=== PATIENT | male | born 1960 | race American Indian/Alaskan Native ===

== ENCOUNTER 2019-01-12 06:29 | Inpatient (IN) | payer MEDICARE ==
--- NOTE | 2019-01-12 07:06 | XRay Report ---
PROCEDURE: XR CHEST ROUTINE 2V TECHNIQUE: PA and lateral views of the chest were submitted. HISTORY: SOB, DRY COUGH COMPARISONS: None FINDINGS: The heart is mildly enlarged. The lungs are diffusely congested. There is bilateral interstitial debora a with thickening of the fissures. Pleural effusion is not seen. The skeletal structures do not show any acute changes. IMPRESSION: Congestive heart failure pattern.. This document is electronically signed by Mian Pichardo MD., January 12 2019 07:03:22 AM ET
[2019-01-12 07:09] LABS: Basophils # (Auto) 0.1 K/mm3 (0.0-0.1); Basophils % (Auto) 1.2 % (0.0-1.8); Eosinophils # (Auto) 0.1 K/mm3 (0.0-0.4); Hematocrit 43.3 % (35.5-45.6); Lymphocytes # (Auto) 2.3 K/mm3 (1.2-5.4); Lymphocytes % (Auto) 33.6 % (13.4-35.0); Mean Corpuscular HGB Conc 32 % (32-34); Mean Corpuscular Volume 88 fl (84-94); Monocytes # (Auto) 0.7 K/mm3 (0.0-0.8); Monocytes % (Auto) 9.5 % (0.0-7.3); Platelet Count 213 K/mm3 (140-440); Red Blood Count 4.93 M/mm3 (3.65-5.03); Red Cell Distribution Width 15.3 % (13.2-15.2)
[2019-01-12 07:33] LABS: BUN/Creatinine Ratio 12; Blood Urea Nitrogen 14 mg/dL (9-20); Calcium 8.9 mg/dL (8.4-10.2); Hemolysis Index 48
[2019-01-12 09:55] LABS: INR 1.17 (0.87-1.13); Partial Thromboplastin Time 28.4 Sec. (24.2-36.6)
--- NOTE | 2019-01-12 09:57 | Cat Scan Report ---
CTA CHEST: HISTORY: Shortness of breath, chest pain. COMPARISON: Chest x-ray performed the same day. TECHNIQUE: Helical CT in 1.25mm intervals following IV contrast. Pulmonary embolus protocol. Sagittal and coronal reformatted images. Rotational MIP images. FINDINGS: Contrast bolus is satisfactory. No pulmonary embolus is identified. Thyroid gland: Normal. Tracheobronchial tree: Normal. Esophagus: Normal. Heart: Mild cardiomegaly. Pericardium: Normal. Mediastinum: Normal. Lung Travis: Mild congestive changes are identified in both lungs. No underlying parenchymal lung disease, infiltrate or mass. Pleural Spaces: Trace to small bilateral layering pleural effusions. Musculoskeletal: Intact. Mild thoracic spondylosis is noted. IMPRESSION: No evidence for pulmonary embolus. Mild CHF.
[2019-01-12] MEDS ORDERED: LASIX IV ONE (10:28)
--- NOTE | 2019-01-12 10:28 | Emergency Department Report ---
ED General Adult HPI - General Chief complaint: Dyspnea/Respdistress Stated complaint: FATIGUE IRENE Time Seen by Provider: 01/12/19 08:29 Source: patient Mode of arrival: Ambulatory Limitations: No Limitations - History of Present Illness Initial comments: The patient presents to emergency department with a chief complaint of shortness of breath and chest pain for greater than 3 weeks. Patient states symptoms are worse with exertion. The patient is deaf but is able to communicate via writing questions and him responding by voice. Patient denies any leg pain, abdominal pain, or headache. -: Gradual Location: chest Severity scale (0 -10): 7 Quality: aching Consistency: constant Improves with: rest Worsens with: movement Associated Symptoms: denies other symptoms Treatments Prior to Arrival: none - Related Data Home Medications Medication Instructions Recorded Confirmed Last Taken No Known Home Medications [No 01/12/19 01/12/19 Unknown Reported Home Medications] Allergies Allergy/AdvReac Type Severity Reaction Status Date / Time No Known Allergies Allergy Unverified 01/12/19 06:41 ED Review of Systems ROS: Stated complaint: FATIGUE IRENE Other details as noted in HPI Comment: All other systems reviewed and negative Constitutional: denies: chills, fever Eyes: denies: eye pain, eye discharge, vision change ENT: denies: ear pain, throat pain Respiratory: shortness of breath, SOB with exertion. denies: cough, wheezing Cardiovascular: chest pain. denies: palpitations Endocrine: no symptoms reported Gastrointestinal: denies: abdominal pain, nausea, diarrhea Genitourinary: denies: urgency, dysuria Musculoskeletal: denies: back pain, joint swelling, arthralgia Skin: denies: rash, lesions Neurological: denies: headache, weakness, paresthesias Psychiatric: denies: anxiety, depression Hematological/Lymphatic: denies: easy bleeding, easy bruising ED Past Medical Hx - Past Medical History Previous Medical History?: Yes Hx Hypertension: Yes (out of meds x2 yrs) - Surgical History Past Surgical History?: No - Social History Smoking Status: Former Smoker Substance Use Type: None - Medications Home Medications: Home Medications Medication Instructions Recorded Confirmed Last Taken Type No Known Home Medications [No 01/12/19 01/12/19 Unknown History Reported Home Medications] ED Physical Exam - General Limitations: No Limitations General appearance: alert, in no apparent distress - Head Head exam: Present: atraumatic, normocephalic - Eye Eye exam: Present: normal appearance, PERRL, EOMI - ENT ENT exam: Present: mucous membranes moist - Neck Neck exam: Present: normal inspection - Respiratory Respiratory exam: Present: normal lung sounds bilaterally, rales. Absent: respiratory distress, wheezes, rhonchi - Cardiovascular Cardiovascular Exam: Present: normal rhythm, tachycardia. Absent: systolic murmur, diastolic murmur, rubs, gallop - GI/Abdominal GI/Abdominal exam: Present: soft, normal bowel sounds. Absent: distended, tenderness - Rectal Rectal exam: Present: deferred - Extremities Exam Extremities exam: Present: normal inspection - Back Exam Back exam: Present: normal inspection - Neurological Exam Neurological exam: Present: alert, oriented X3, CN II-XII intact. Absent: motor sensory deficit - Psychiatric Psychiatric exam: Present: normal affect, normal mood - Skin Skin exam: Present: warm, dry, intact, normal color. Absent: rash ED Course Vital Signs 01/12/19 01/12/19 01/12/19 06:36 08:14 09:00 Temperature 98.5 F Pulse Rate 95 H 127 H 124 H Respiratory 22 22 21 Rate Blood Pressure 182/128 Blood Pressure 185/126 [Right] O2 Sat by Pulse 100 97 Oximetry 01/12/19 01/12/19 01/12/19 09:49 10:01 10:11 Temperature Pulse Rate 129 H 125 H 120 H Respiratory 28 H 24 25 H Rate Blood Pressure 163/129 178/130 172/129 Blood Pressure [Right] O2 Sat by Pulse 98 Oximetry 01/12/19 01/12/19 01/12/19 10:21 10:30 10:40 Temperature Pulse Rate 120 H 122 H 121 H Respiratory 25 H 29 H 27 H Rate Blood Pressure 170/135 172/134 172/134 Blood Pressure [Right] O2 Sat by Pulse 97 98 100 Oximetry 01/12/19 01/12/19 01/12/19 10:51 11:00 11:11 Temperature Pulse Rate 121 H 120 H 125 H Respiratory 27 H 24 26 H Rate Blood Pressure 168/131 164/119 168/131 Blood Pressure [Right] O2 Sat by Pulse 97 98 100 Oximetry ED Medical Decision Making - Lab Data Result diagrams: 01/13/19 05:11 01/13/19 05:11 Lab Results 01/12/19 01/12/19 01/12/19 Range/Units 06:56 06:56 09:07 WBC 6.9 (4.5-11.0) K/mm3 RBC 4.93 (3.65-5.03) M/mm3 Hgb 14.0 (11.8-15.2) gm/dl Hct 43.3 (35.5-45.6) % MCV 88 (84-94) fl MCH 28 (28-32) pg MCHC 32 (32-34) % RDW 15.3 H (13.2-15.2) % Plt Count 213 (140-440) K/mm3 Lymph % (Auto) 33.6 (13.4-35.0) % Riley % (Auto) 9.5 H (0.0-7.3) % Eos % (Auto) 2.0 (0.0-4.3) % Baso % (Auto) 1.2 (0.0-1.8) % Lymph # 2.3 (1.2-5.4) K/mm3 Riley # 0.7 (0.0-0.8) K/mm3 Eos # 0.1 (0.0-0.4) K/mm3 Baso # 0.1 (0.0-0.1) K/mm3 Seg Neutrophils % 53.7 (40.0-70.0) % Seg Neutrophils # 3.7 (1.8-7.7) K/mm3 PT 15.7 H (12.2-14.9) Sec. INR 1.17 H (0.87-1.13) APTT 28.4 (24.2-36.6) Sec. Sodium 137 (137-145) mmol/L Potassium 4.2 (3.6-5.0) mmol/L Chloride 103.7 (98-107) mmol/L Carbon Dioxide 20 L (22-30) mmol/L Anion Gap 18 mmol/L BUN 14 (9-20) mg/dL Creatinine 1.2 (0.8-1.5) mg/dL Estimated GFR > 60 ml/min BUN/Creatinine Ratio 12 % Glucose 164 H (75-100) mg/dL Calcium 8.9 (8.4-10.2) mg/dL Troponin T (0.00-0.029) ng/mL NT-Pro-B Natriuret Pep (0-900) pg/mL 01/12/19 Range/Units 09:07 WBC (4.5-11.0) K/mm3 RBC (3.65-5.03) M/mm3 Hgb (11.8-15.2) gm/dl Hct (35.5-45.6) % MCV (84-94) fl MCH (28-32) pg MCHC (32-34) % RDW (13.2-15.2) % Plt Count (140-440) K/mm3 Lymph % (Auto) (13.4-35.0) % Riley % (Auto) (0.0-7.3) % Eos % (Auto) (0.0-4.3) % Baso % (Auto) (0.0-1.8) % Lymph # (1.2-5.4) K/mm3 Riley # (0.0-0.8) K/mm3 Eos # (0.0-0.4) K/mm3 Baso # (0.0-0.1) K/mm3 Seg Neutrophils % (40.0-70.0) % Seg Neutrophils # (1.8-7.7) K/mm3 PT (12.2-14.9) Sec. INR (0.87-1.13) APTT (24.2-36.6) Sec. Sodium (137-145) mmol/L Potassium (3.6-5.0) mmol/L Chloride (98-107) mmol/L Carbon Dioxide (22-30) mmol/L Anion Gap mmol/L BUN (9-20) mg/dL Creatinine (0.8-1.5) mg/dL Estimated GFR ml/min BUN/Creatinine Ratio % Glucose (75-100) mg/dL Calcium (8.4-10.2) mg/dL Troponin T < 0.010 (0.00-0.029) ng/mL NT-Pro-B Natriuret Pep 3678 H (0-900) pg/mL - EKG Data -: EKG Interpreted by Me EKG shows normal: sinus rhythm Rate: tachycardia - Radiology Data Radiology results: report reviewed - Medical Decision Making Communication was done with pin and paper The patient does have ability to answer questions at the reading the questions Attempt was made to use to signing application via the high pad but can show was not granted after multiple attempts Results discussed with patient IV Lasix given Critical Care Time: Yes Critical care time in (mins) excluding proc time.: 35 Critical care attestation.: If time is entered above; I have spent that time in minutes in the direct care of this critically ill patient, excluding procedure time. ED Disposition Clinical Impression: CHF (congestive heart failure) Disposition: [id number] OP ADMIT IP TO THIS HOSP Is pt being admited?: Yes Does the pt Need Aspirin: Yes Condition: Fair
[2019-01-12] MEDS ORDERED: BABY ASPIRIN PO ONE (10:42)
[2019-01-12] MEDS ORDERED: NITROSTAT SL PRN ×2 (11:40)
[2019-01-12] MEDS ORDERED: ZOFRAN IV PRN (11:40)
[2019-01-12] MEDS ORDERED: PROVENTIL IH PRN (11:40)
[2019-01-12] MEDS ORDERED: SODIUM CHLORIDE FLUSH SYRINGE 10 ML IV PRN ×2 (11:40)
[2019-01-12] MEDS ORDERED: MORPHINE IV PRN (11:40)
--- NOTE | 2019-01-12 11:51 | History and Physical Report ---
History of Present Illness Date of examination: 01/12/19 Date of admission: 01/12/19 10:38 Chief complaint: Shortness of breath and chest pain History of present illness: Patient is a 58-year-old male with past medical history of hypertension also deafness which started in his teenage years and noncompliance with medication quit taking his medication about 2 years ago presents to the ER with complaints of shortness of breath and chest pain worse in the past 3 weeks. The patient reports that he does have exertional dyspnea and also worse on lying down. In the last week he began to have tightness in his chest to him to come to the ED. He denies any nausea vomiting diarrhea or blood per rectum or melanotic stools. He denies any prior history of DE stroke or CABG. He was an avid smoker but quit 2 years ago. He endorses intermittent alcohol use but denies any binge drinking. The chest pain he describes as constant and unchanged. He rates it a 7/10 in intensity. Past History Past Medical History: hypertension, other (deaf, history of nosebleeds as a child) Past Surgical History: No surgical history Social history: no significant social history, smoking (quit 2 years ago), full code Family history: no significant family history Medications and Allergies Allergies Allergy/AdvReac Type Severity Reaction Status Date / Time No Known Allergies Allergy Unverified 01/12/19 06:41 Home Medications Medication Instructions Recorded Confirmed Last Taken Type No Known Home Medications [No 01/12/19 01/12/19 Unknown History Reported Home Medications] Active Meds: Active Medications Acetaminophen (Tylenol) 650 mg PO Q4H PRN PRN Reason: Pain MILD(1-3)/Fever >100.5/ISAAC Albuterol (Proventil) 2.5 mg IH Q4HRT PRN PRN Reason: Shortness Of Breath Albuterol/Ipratropium (Duoneb *Not For Prn Use*) 1 ampul IH Q6HRT [facility] Aspirin (Baby Aspirin) 81 mg PO QDAY JENS Atorvastatin Calcium (Lipitor) 40 mg PO QHS JENS Carvedilol (Coreg) 12.5 mg PO BID JENS Furosemide (Lasix) 40 mg IV BID@0600,1800 [facility] Isosorbide Dinitrate (Isordil Titradose) 20 mg PO Q8HR JENS Morphine Sulfate (Morphine) 2 mg IV Q5MIN PRN PRN Reason: Chest Pain unrelieved by NTG Nitroglycerin (Nitrostat) 0.4 mg SL .Q5MIN PRN PRN Reason: Chest Pain Nitroglycerin (Nitrostat) 0.4 mg SL Q5M PRN PRN Reason: Chest Pain Ondansetron HCl (Zofran) 4 mg IV Q8H PRN PRN Reason: Nausea And Vomiting Pantoprazole Sodium (Protonix) 40 mg PO QDAY JENS Sodium Chloride (Sodium Chloride Flush Syringe 10 Ml) 10 ml IV PRN PRN PRN Reason: LINE FLUSH Sodium Chloride (Sodium Chloride Flush Syringe 10 Ml) 10 ml IV BID JENS Sodium Chloride (Sodium Chloride Flush Syringe 10 Ml) 10 ml IV PRN PRN PRN Reason: LINE FLUSH Review of Systems All systems: negative Constitutional: no weight loss, no weight gain, no fever, no chills, no anorexia, no malaise, no lethargy, no chronic headaches Ears, nose, mouth and throat: decreased hearing, no ear pain, no tinnitis Cardiovascular: chest pain, orthopnea, edema, shortness of breath, dyspnea on e xertion, leg edema, decreased exercise tolerance, no palpitations, no rapid/irregular heart beat, no syncope, no lightheadedness, no paroxysmal nocturnal dyspnea, no claudication, no phlebitis, no high blood pressure Respiratory: shortness of breath, dyspnea on exertion, no cough, no cough with sputum, no excessive sputum, no hemoptysis, no congestion, no wheezing, no pleu risy, no pain, no pain on inspiration, no sleep apnea, no respiratory infections, no home oxygen Gastrointestinal: no abdominal pain, no vomiting, no constipation, no hemateme sis, no melena, no early satiety, no indigestion, no jaundice, no lactose intolerance Musculoskeletal: no neck pain, no low back pain, no leg numbness/tingling, no morning stiffness, no myalgias, no fractures, no prior amputations Integumentary: no rash, no sores, no wounds, no blisters, no growths, no bullae, no acne, no dryness, no hirsutism Neurological: no transient paralysis, no paralysis, no numbness, no syncope, no convulsions, no change in speech, no memory loss, no sensory deficit, no double vision, no burning pain Psychiatric: no memory loss, no change in sleep habits, no hypersomnia, no disorientation, no depression, no irritability Endocrine: no heat intolerance, no polydipsia, no nocturia, no weight change, no deepening of the voice, no high blood sugars, no recent glucocorticoid use Allergic/Immunologic: no urticaria Exam - Physical Exam Narrative exam: VITAL SIGNS: Reviewed. GENERAL: The patient appeared well nourished and normally developed, Vital signs as documented. HEAD: No signs of head trauma. EYES: Pupils are equal. Extraocular motions intact. EARS: Deaf MOUTH: Oropharynx is normal. NECK: No adenopathy, no JVD. CHEST: Chest with diminished breath sounds bilaterally. No wheezes, rales, or rhonchi. CARDIAC: Regular rate and rhythm. S1 and S2, without murmurs, gallops, or rubs. VASCULAR: +2 Edema. Peripheral pulses normal and equal in all extremities. ABDOMEN: Soft, non tender and non distended. No rebound or guarding, and no masses palpated. Bowel Sounds normal. MUSCULOSKELETAL: Good range of motion of all major joints. Extremities without clubbing, cyanosis or edema. NEUROLOGIC EXAM: Alert and oriented x 3 No focal sensory or strength deficits. Speech normal. Follows commands. PSYCHIATRIC: Mood normal. SKIN: No rash or lesions. - Constitutional Vitals: Temp Pulse Resp BP Pulse Ox 98.5 F 129 H 26 H 163/129 98 01/12/19 06:36 01/12/19 09:49 01/12/19 10:01 01/12/19 09:49 01/12/19 10:01 Results - Labs CBC & Chem 7: 01/12/19 06:56 01/12/19 06:56 Labs: Laboratory Last Values WBC 6.9 K/mm3 (4.5-11.0) 01/12/19 06:56 RBC 4.93 M/mm3 (3.65-5.03) 01/12/19 06:56 Hgb 14.0 gm/dl (11.8-15.2) 01/12/19 06:56 Hct 43.3 % (35.5-45.6) 01/12/19 06:56 MCV 88 fl (84-94) 01/12/19 06:56 MCH 28 pg (28-32) 01/12/19 06:56 MCHC 32 % (32-34) 01/12/19 06:56 RDW 15.3 % (13.2-15.2) H 01/12/19 06:56 Plt Count 213 K/mm3 (140-440) 01/12/19 06:56 Lymph % (Auto) 33.6 % (13.4-35.0) 01/12/19 06:56 [place] % (Auto) 9.5 % (0.0-7.3) H 01/12/19 06:56 Eos % (Auto) 2.0 % (0.0-4.3) 01/12/19 06:56 Baso % (Auto) 1.2 % (0.0-1.8) 01/12/19 06:56 Lymph # 2.3 K/mm3 (1.2-5.4) 01/12/19 06:56 [place] # 0.7 K/mm3 (0.0-0.8) 01/12/19 06:56 Eos # 0.1 K/mm3 (0.0-0.4) 01/12/19 06:56 Baso # 0.1 K/mm3 (0.0-0.1) 01/12/19 06:56 Seg Neutrophils % 53.7 % (40.0-70.0) 01/12/19 06:56 Seg Neutrophils # 3.7 K/mm3 (1.8-7.7) 01/12/19 06:56 PT 15.7 Sec. (12.2-14.9) H 01/12/19 09:07 INR 1.17 (0.87-1.13) H 01/12/19 09:07 APTT 28.4 Sec. (24.2-36.6) 01/12/19 09:07 Sodium 137 mmol/L (137-145) 01/12/19 06:56 Potassium 4.2 mmol/L (3.6-5.0) 01/12/19 06:56 Chloride 103.7 mmol/L (98-107) 01/12/19 06:56 Carbon Dioxide 20 mmol/L (22-30) L 01/12/19 06:56 Anion Gap 18 mmol/L 01/12/19 06:56 BUN 14 mg/dL (9-20) 01/12/19 06:56 Creatinine 1.2 mg/dL (0.8-1.5) 01/12/19 06:56 Estimated GFR > 60 ml/min 01/12/19 06:56 BUN/Creatinine Ratio 12 % 01/12/19 06:56 Glucose 164 mg/dL (75-100) H 01/12/19 06:56 Calcium 8.9 mg/dL (8.4-10.2) 01/12/19 06:56 Troponin T < 0.010 ng/mL (0.00-0.029) 01/12/19 09:07 NT-Pro-B Natriuret Pep 3678 pg/mL (0-900) H 01/12/19 09:07 Assessment and Plan Assessment and plan: Patient is a 58-year-old male with past medical history of hypertension also deafness which started in his teenage years and noncompliance with medication quit taking his medication about 2 years ago presents to the ER with complaints of shortness of breath and chest pain worse in the past 3 weeks. The patient reports that he does have exertional dyspnea and also worse on lying down. In the last week he began to have tightness in his chest to him to come to the ED. He denies any nausea vomiting diarrhea or blood per rectum or melanotic stools. He denies any prior history of DE stroke or CABG. He was an avid smoker but quit 2 years ago. He endorses intermittent alcohol use but denies any binge drinking. The chest pain he describes as constant and unchanged. He rates it a 7/10 in in tensity. CXR: Congestive Heart failure CTA Chest: No PE Acute Congestive Heart failure- Presume Systolic Hypertensive Urgency Exertional Dyspnea. Atypical chest pain Deaf Plan Admit to Telemetry unit Start on CHF protocol problem Lasix 40 IV BID, Beta Alexander, ACEI LOW SALT DAILY WEIGHT CARDIAC ENZYMES [place] Heart failure education Operations Intelligence Superintendent was available for assistance Cardiology consult and discussed with the cardiology team DVT/GI prophy Advance Directives: Yes Plan of care discussed with patient/family: Yes
[2019-01-12] MEDS ORDERED: ASPIRIN ONE (11:56)
[2019-01-12] MEDS ORDERED: LASIX ONE (11:56)
[2019-01-12] MEDS ORDERED: ZESTRIL PO SCH (12:00)
[2019-01-12] MEDS ORDERED: ISORDIL TITRADOSE PO SCH (14:00)
[2019-01-12] MEDS: HEPARIN SUB-Q SCH ×2 (14:18→22:42)
--- NOTE | 2019-01-12 14:40 | Consultation ---
History of Present Illness Consult date: 01/12/19 Consult reason: congestive heart failure History of present illness: Patient presenting with worsening shortness of breath, tachycardia and elevated blood pressure. Patient is hearing impaired. He reports running out of BP meds for 2 years now. He is not aware of any cardiac conditions besides his hypertension. CXR is showing pulmonary edema. Past History Past Medical History: hypertension Past Surgical History: No surgical history Social history: no significant social history Family history: no significant family history Medications and Allergies Allergies Allergy/AdvReac Type Severity Reaction Status Date / Time No Known Allergies Allergy Unverified 01/12/19 06:41 Home Medications Medication Instructions Recorded Confirmed Last Taken Type No Known Home Medications [No 01/12/19 01/12/19 Unknown History Reported Home Medications] Active Meds: Active Medications Acetaminophen (Tylenol) 650 mg PO Q4H PRN PRN Reason: Pain MILD(1-3)/Fever >100.5/ISAAC Albuterol (Proventil) 2.5 mg IH Q4HRT PRN PRN Reason: Shortness Of Breath Albuterol/Ipratropium (Duoneb *Not For Prn Use*) 1 ampul IH Q6HRT [facility] Aspirin (Baby Aspirin) 81 mg PO QDAY [facility] Atorvastatin Calcium (Lipitor) 40 mg PO QHS [facility] Carvedilol (Coreg) 12.5 mg PO BID [facility] Furosemide (Lasix) 40 mg IV BID@0600,1800 [facility] Heparin Sodium (Porcine) (Heparin) 5,000 unit SUB-Q Q8HR [facility] Isosorbide Dinitrate (Isordil Titradose) 20 mg PO Q8HR [facility] Lisinopril (Zestril) 20 mg PO QDAY [facility] Morphine Sulfate (Morphine) 2 mg IV Q5MIN PRN PRN Reason: Chest Pain unrelieved by NTG Nitroglycerin (Nitrostat) 0.4 mg SL .Q5MIN PRN PRN Reason: Chest Pain Ondansetron HCl (Zofran) 4 mg IV Q8H PRN PRN Reason: Nausea And Vomiting Pantoprazole Sodium (Protonix) 40 mg PO QDAY [facility] Sodium Chloride (Sodium Chloride Flush Syringe 10 Ml) 10 ml IV PRN PRN PRN Reason: LINE FLUSH Sodium Chloride (Sodium Chloride Flush Syringe 10 Ml) 10 ml IV BID [facility] Sodium Chloride (Sodium Chloride Flush Syringe 10 Ml) 10 ml IV PRN PRN PRN Reason: LINE FLUSH Review of Systems All systems: negative Physical Examination Vital Signs Temp Pulse Resp BP Pulse Ox 98.5 F 95 H 22 182/128 100 01/12/19 06:36 01/12/19 06:36 01/12/19 06:36 01/12/19 06:36 01/12/19 06:36 General appearance: no acute distress HEENT: Positive: PERRL Neck: Positive: JVD/HJR Cardiac: Positive: Tachycardia Lungs: Positive: Rales Neuro: Positive: Other (Hearing impaired) Abdomen: Positive: Soft Extremities: Present: +1 Edema Results 01/12/19 06:56 01/12/19 06:56 Coagulation 01/12/19 Range/Units 09:07 PT 15.7 H (12.2-14.9) Sec. INR 1.17 H (0.87-1.13) APTT 28.4 (24.2-36.6) Sec. CBC 01/12/19 Range/Units 06:56 WBC 6.9 (4.5-11.0) K/mm3 RBC 4.93 (3.65-5.03) M/mm3 Hgb 14.0 (11.8-15.2) gm/dl Hct 43.3 (35.5-45.6) % Plt Count 213 (140-440) K/mm3 Lymph # 2.3 (1.2-5.4) K/mm3 [place] # 0.7 (0.0-0.8) K/mm3 Eos # 0.1 (0.0-0.4) K/mm3 Baso # 0.1 (0.0-0.1) K/mm3 Comprehensive Metabolic Panel 01/12/19 Range/Units 06:56 Sodium 137 (137-145) mmol/L Potassium 4.2 (3.6-5.0) mmol/L Chloride 103.7 (98-107) mmol/L Carbon Dioxide 20 L (22-30) mmol/L BUN 14 (9-20) mg/dL Creatinine 1.2 (0.8-1.5) mg/dL Glucose 164 H (75-100) mg/dL Calcium 8.9 (8.4-10.2) mg/dL - EKG Interpretation EKG shows: tachycardia EKG interpretations - Telemetry EKG Rhythm: Sinus Tachycardia Assessment and Plan Acute congestive heart failure Systemic Hypertension Sinus tachycardia Non-compliance Hearing impairment Recommendations: IV diuresis Afterload reduction Echocardiogram Further cardiac work-up pending echo findings
[2019-01-12 14:42] LABS: Creatine Kinase MB 5.9 ng/mL (0.0-4.0)
[2019-01-12] MEDS: DUONEB *Not for PRN Use IH SCH ×2 (14:44→23:02)
[2019-01-12 15:02] LABS: Chol/HDL Ratio 3.37 %
[2019-01-12] MEDS ORDERED: APRESOLINE IV PRN (17:27)
[2019-01-12] MEDS: ZESTRIL PO SCH (17:55)
[2019-01-12] MEDS: ISORDIL TITRADOSE PO SCH (17:55)
[2019-01-12] MEDS: LASIX IV SCH (17:56)
[2019-01-12] MEDS: TYLENOL PO PRN (20:06)
[2019-01-12] MEDS: COREG PO SCH (22:42)
[2019-01-12] MEDS: SODIUM CHLORIDE FLUSH SYRINGE 10 ML IV SCH (22:47)
[2019-01-13] MEDS: ISORDIL TITRADOSE PO SCH ×4 (01:17→22:31)
[2019-01-13] MEDS: DUONEB *Not for PRN Use IH SCH ×4 (03:45→21:51)
[2019-01-13 06:12] LABS: Basophils # (Auto) 0.1 K/mm3 (0.0-0.1); Basophils % (Auto) 0.8 % (0.0-1.8); Eosinophils # (Auto) 0.1 K/mm3 (0.0-0.4); Eosinophils % (Auto) 1.7 % (0.0-4.3); Hematocrit 38.1 % (35.5-45.6); Hemoglobin 12.3 gm/dl (11.8-15.2); Lymphocytes # (Auto) 1.3 K/mm3 (1.2-5.4); Mean Corpuscular HGB Conc 32 % (32-34); Mean Corpuscular Volume 87 fl (84-94); Monocytes # (Auto) 0.8 K/mm3 (0.0-0.8); Monocytes % (Auto) 11.4 % (0.0-7.3); Platelet Count 211 K/mm3 (140-440); Red Blood Count 4.37 M/mm3 (3.65-5.03); Red Cell Distribution Width 15.5 % (13.2-15.2)
[2019-01-13 06:24] LABS: BUN/Creatinine Ratio 12; Blood Urea Nitrogen 15 mg/dL (9-20); Calcium 8.4 mg/dL (8.4-10.2); Hemolysis Index 9
[2019-01-13] MEDS: LASIX IV SCH ×2 (06:35→17:19)
[2019-01-13] MEDS: HEPARIN SUB-Q SCH ×3 (06:35→22:35)
--- NOTE | 2019-01-13 08:54 | Progress Note ---
Assessment and Plan Acute congestive heart failure Systemic Hypertension Non-compliance Hearing impairment Recommendations: Continue medical therapy for heart failure to include IV diuresis, afterload reduction, aldactone and beta blockers. Echocardiogram for LVEF assessment. Subjective Date of service: 01/13/19 Interval history: Patient reports his breathing is better. Admits he is diuresing well. Objective Vital Signs Temp Pulse Pulse Resp Resp BP Pulse Ox 01/13/19 06:54 98.5 F 121 H 20 123/79 97 01/13/19 06:39 122 H 126/94 01/13/19 01:17 87 108/73 01/13/19 00:38 98.3 F 87 20 108/73 92 01/12/19 23:14 95 H 24 01/12/19 23:03 90 24 97 01/12/19 22:42 96 H 146/79 01/12/19 17:55 100 H 140/96 01/12/19 17:48 97.7 F 100 H 20 140/96 97 01/12/19 15:44 20 97 01/12/19 15:39 80 17 158/117 01/12/19 14:55 123 H 20 01/12/19 14:48 97 01/12/19 14:45 130 H 20 01/12/19 14:15 124 H 160/121 01/12/19 13:23 98.2 F 119 H 20 160/121 99 01/12/19 11:11 125 H 26 H 168/131 100 01/12/19 11:00 120 H 24 164/119 98 01/12/19 10:51 121 H 27 H 168/131 97 01/12/19 10:40 121 H 27 H 172/134 100 01/12/19 10:30 122 H 29 H 172/134 98 01/12/19 10:21 120 H 25 H 170/135 97 01/12/19 10:11 120 H 25 H 172/129 01/12/19 10:01 125 H 24 178/130 98 01/12/19 09:49 129 H 28 H 163/129 01/12/19 09:00 124 H 21 97 - Physical Examination General: No Apparent Distress HEENT: Positive: PERRL Neck: Positive: JVD/HJR Cardiac: Positive: Reg Rate and Rhythm Lungs: Positive: Decreased Breath Sounds Neuro: Positive: Grossly Intact, Other (Hearing impaired) Extremities: Present: +1 Edema - Labs and Meds Cardiac Enzymes 01/12/19 01/12/19 Range/Units 14:00 21:27 CK-MB (CK-2) 5.9 H 4.0 (0.0-4.0) ng/mL Coagulation 01/12/19 Range/Units 09:07 PT 15.7 H (12.2-14.9) Sec. INR 1.17 H (0.87-1.13) APTT 28.4 (24.2-36.6) Sec. Lipids 01/12/19 Range/Units 14:00 Triglycerides 64 (2-149) mg/dL Cholesterol 125 (50-199) mg/dL HDL Cholesterol 37 L (40-59) mg/dL Cholesterol/HDL Ratio 3.37 % CBC 01/13/19 Range/Units 05:11 WBC 6.7 (4.5-11.0) K/mm3 RBC 4.37 (3.65-5.03) M/mm3 Hgb 12.3 (11.8-15.2) gm/dl Hct 38.1 (35.5-45.6) % Plt Count 211 (140-440) K/mm3 Lymph # 1.3 (1.2-5.4) K/mm3 [place] # 0.8 (0.0-0.8) K/mm3 Eos # 0.1 (0.0-0.4) K/mm3 Baso # 0.1 (0.0-0.1) K/mm3 Comprehensive Metabolic Panel 01/13/19 Range/Units 05:11 Sodium 142 (137-145) mmol/L Potassium 3.6 (3.6-5.0) mmol/L Chloride 102.6 (98-107) mmol/L Carbon Dioxide 26 (22-30) mmol/L BUN 15 (9-20) mg/dL Creatinine 1.3 (0.8-1.5) mg/dL Glucose 127 H (75-100) mg/dL Calcium 8.4 (8.4-10.2) mg/dL
--- NOTE | 2019-01-13 09:56 | XRay Report ---
AP CHEST: HISTORY: chest pain Mild cardiomegaly and mild pulmonary venous congestion are identified. The lungs are generally clear otherwise. No evidence for pneumonia, pleural effusion or pneumothorax. The bony structures are grossly intact. No overwhelming change since yesterday's exam. IMPRESSION: Mild cardiomegaly and pulmonary venous congestion.
[2019-01-13] MEDS: BABY ASPIRIN PO SCH (11:23)
[2019-01-13] MEDS: COREG PO SCH ×2 (11:23→22:34)
[2019-01-13] MEDS: ZESTRIL PO SCH (11:23)
[2019-01-13] MEDS: PROTONIX PO SCH (11:23)
[2019-01-13] MEDS: SODIUM CHLORIDE FLUSH SYRINGE 10 ML IV SCH ×2 (11:24→22:36)
[2019-01-13] MEDS: ALDACTONE PO SCH (13:05)
[2019-01-13] MEDS: TYLENOL PO PRN (17:18)
--- NOTE | 2019-01-13 21:55 | Progress Note ---
Assessment and Plan Assessment and plan: Patient is a 58-year-old male with past medical history of hypertension also deafness which started in his teenage years and noncompliance with medication quit taking his medication about 2 years ago presents to the ER with complaints of shortness of breath and chest pain worse in the past 3 weeks. The patient reports that he does have exertional dyspnea and also worse on lying down. In the last week he began to have tightness in his chest to him to come to the ED. He denies any nausea vomiting diarrhea or blood per rectum or melanotic stools. He denies any prior history of MD stroke or CABG. He was an avid smoker but quit 2 years ago. He endorses intermittent alcohol use but denies any binge drinking. The chest pain he describes as constant and unchanged. He rates it a 7/10 in intensity. CXR: Congestive Heart failure CTA Chest: No PE Acute systolic Congestive Heart failure Hypertensive Urgency Exertional Dyspnea. Atypical chest pain Deaf Plan Continue supportive care Continue CHF protocol problem Per cardiology: Echocardiogram demonstrates a severe cardiomyopathy with left ventricular ejection fraction 20-25%. Further cardiac ischemic evaluation would depend on clinical course. Lasix 40 IV BID, Beta Alexander, ACEI LOW SALT diet DAILY WEIGHT WiTricity Heart failure education Pest Technician was available for assistance Cardiology consult and discussed with the cardiology team DVT/GI prophy Plan discussed with the patient History Interval history: Patient seen and examined today resting comfortably reports remarkable improvement today. Still with some exertional dyspnea. Hospitalist Physical - Physical exam Narrative exam: VITAL SIGNS: Reviewed. GENERAL: The patient appeared well nourished and normally developed, Vital signs as documented. HEAD: No signs of head trauma. EYES: Pupils are equal. Extraocular motions intact. EARS: Deaf MOUTH: Oropharynx is normal. NECK: No adenopathy, no JVD. CHEST: Chest with diminished breath sounds bilaterally. No wheezes, rales, or rhonchi. CARDIAC: Regular rate and rhythm. S1 and S2, without murmurs, gallops, or rubs. VASCULAR: +1 Edema. Peripheral pulses normal and equal in all extremities. ABDOMEN: Soft, non tender and non distended. No rebound or guarding, and no masses palpated. Bowel Sounds normal. MUSCULOSKELETAL: Good range of motion of all major joints. Extremities without clubbing, cyanosis. 1+ edema NEUROLOGIC EXAM: Alert and oriented x 3 No focal sensory or strength deficits. Speech normal. Follows commands. PSYCHIATRIC: Mood normal. SKIN: No rash or lesions. - Constitutional Vitals: Temp Pulse Resp BP Pulse Ox 98.8 F 118 H 20 137/105 97 01/13/19 17:30 01/13/19 21:26 01/13/19 21:26 01/13/19 17:30 01/13/19 17:30 General appearance: Present: no acute distress Results - Labs CBC & Chem 7: 01/13/19 05:11 01/13/19 05:11 Labs: Laboratory Last Values WBC 6.7 K/mm3 (4.5-11.0) 01/13/19 05:11 RBC 4.37 M/mm3 (3.65-5.03) 01/13/19 05:11 Hgb 12.3 gm/dl (11.8-15.2) 01/13/19 05:11 Hct 38.1 % (35.5-45.6) 01/13/19 05:11 MCV 87 fl (84-94) 01/13/19 05:11 MCH 28 pg (28-32) 01/13/19 05:11 MCHC 32 % (32-34) 01/13/19 05:11 RDW 15.5 % (13.2-15.2) H 01/13/19 05:11 Plt Count 211 K/mm3 (140-440) 01/13/19 05:11 Lymph % (Auto) 19.0 % (13.4-35.0) 01/13/19 05:11 [place] % (Auto) 11.4 % (0.0-7.3) H 01/13/19 05:11 Eos % (Auto) 1.7 % (0.0-4.3) 01/13/19 05:11 Baso % (Auto) 0.8 % (0.0-1.8) 01/13/19 05:11 Lymph # 1.3 K/mm3 (1.2-5.4) 01/13/19 05:11 [place] # 0.8 K/mm3 (0.0-0.8) 01/13/19 05:11 Eos # 0.1 K/mm3 (0.0-0.4) 01/13/19 05:11 Baso # 0.1 K/mm3 (0.0-0.1) 01/13/19 05:11 Seg Neutrophils % 67.1 % (40.0-70.0) 01/13/19 05:11 Seg Neutrophils # 4.5 K/mm3 (1.8-7.7) 01/13/19 05:11 PT 15.7 Sec. (12.2-14.9) H 01/12/19 09:07 INR 1.17 (0.87-1.13) H 01/12/19 09:07 APTT 28.4 Sec. (24.2-36.6) 01/12/19 09:07 Sodium 142 mmol/L (137-145) 01/13/19 05:11 Potassium 3.6 mmol/L (3.6-5.0) 01/13/19 05:11 Chloride 102.6 mmol/L (98-107) 01/13/19 05:11 Carbon Dioxide 26 mmol/L (22-30) 01/13/19 05:11 Anion Gap 17 mmol/L 01/13/19 05:11 BUN 15 mg/dL (9-20) 01/13/19 05:11 Creatinine 1.3 mg/dL (0.8-1.5) 01/13/19 05:11 Estimated GFR > 60 ml/min 01/13/19 05:11 BUN/Creatinine Ratio 12 % 01/13/19 05:11 Glucose 127 mg/dL (75-100) H 01/13/19 05:11 Hemoglobin A1c 7.1 % (4-6) H 01/12/19 14:00 Calcium 8.4 mg/dL (8.4-10.2) 01/13/19 05:11 Total Creatine Kinase 167 units/L (55-170) 01/12/19 21:27 CK-MB (CK-2) 4.0 ng/mL (0.0-4.0) 01/12/19 21: CK-MB (CK-2) Rel Index 2.3 (0-4) 01/12/19 21:27 Troponin T 0.015 ng/mL (0.00-0.029) 01/12/19 21:27 NT-Pro-B Natriuret Pep 3678 pg/mL (0-900) H 01/12/19 09:07 Triglycerides 64 mg/dL (2-149) 01/12/19 14:00 Cholesterol 125 mg/dL (50-199) 01/12/19 14:00 LDL Cholesterol Direct 98 mg/dL (50-130) 01/12/19 14:00 HDL Cholesterol 37 mg/dL (40-59) L 01/12/19 14:00 Cholesterol/HDL Ratio 3.37 % 01/12/19 14:00 Active Medications - Current Medications Current Medications: Generic Name Dose Route Start Last Admin Trade Name Freq PRN Reason Stop Dose Admin Acetaminophen 650 mg 01/12/19 11:40 01/13/19 17:18 Tylenol PO 650 mg Q4H PRN Administration Pain MILD(1-3)/Fever >100.5/ISAAC Albuterol 2.5 mg 01/12/19 11:40 Proventil IH Q4HRT PRN Shortness Of Breath Albuterol/Ipratropium 1 ampul 01/12/19 14:00 01/13/19 13:28 Duoneb *Not For Prn Use* IH 1 ampul Q6HRT JENS Administration Aspirin 81 mg 01/13/19 10:00 01/13/19 11:23 Baby Aspirin PO 81 mg QDAY JENS Administration Atorvastatin Calcium 40 mg 01/12/19 22:00 01/12/19 22:42 Lipitor PO 40 mg QHS JENS Administration Carvedilol 12.5 mg 01/12/19 22:00 01/13/19 11:23 Coreg PO 12.5 mg BID JENS Administration Furosemide 40 mg 01/12/19 18:00 01/13/19 17:19 Lasix IV 40 mg BID@0600,1800 JENS Administration Heparin Sodium (Porcine) 5,000 unit 01/12/19 14:00 01/13/19 13:05 Heparin SUB-Q 5,000 unit Q8HR JENS Administration Hydralazine HCl 10 mg 01/12/19 17:27 Apresoline IV Q4HR PRN Hypertension Isosorbide Dinitrate 40 mg 01/12/19 18:00 01/13/19 13:04 Isordil Titradose PO 40 mg Q8HR JENS Administration Lisinopril 40 mg 01/12/19 18:28 01/13/19 11:23 Zestril PO 40 mg QDAY JENS Administration Morphine Sulfate 2 mg 01/12/19 11:40 Morphine IV Q5MIN PRN Chest Pain unrelieved by NTG Nitroglycerin 0.4 mg 01/12/19 11:40 Nitrostat SL .Q5MIN PRN Chest Pain Ondansetron HCl 4 mg 01/12/19 11:40 Zofran IV Q8H PRN Nausea And Vomiting Pantoprazole Sodium 40 mg 01/13/19 10:00 01/13/19 11:23 Protonix PO 40 mg QDAY JENS Administration Sodium Chloride 10 ml 01/12/19 22:00 01/13/19 11:24 Sodium Chloride Flush Syringe 10 Ml IV 10 ml BID JENS Administration Sodium Chloride 10 ml 01/12/19 11:40 Sodium Chloride Flush Syringe 10 Ml IV PRN PRN LINE FLUSH Spironolactone 25 mg 01/13/19 13:00 01/13/19 13:05 Aldactone PO 25 mg QDAY JENS Administration
[2019-01-14] MEDS: ISORDIL TITRADOSE PO SCH ×3 (05:21→22:42)
[2019-01-14] MEDS: LASIX IV SCH ×2 (05:22→18:07)
[2019-01-14] MEDS: HEPARIN SUB-Q SCH ×3 (05:22→22:44)
[2019-01-14] MEDS: ZESTRIL PO SCH (09:19)
[2019-01-14] MEDS: ALDACTONE PO SCH (09:22)
[2019-01-14] MEDS: BABY ASPIRIN PO SCH (09:22)
[2019-01-14] MEDS: PROTONIX PO SCH (09:22)
[2019-01-14] MEDS: COREG PO SCH ×2 (09:22→22:42)
[2019-01-14] MEDS: SODIUM CHLORIDE FLUSH SYRINGE 10 ML IV SCH ×2 (09:25→22:43)
--- NOTE | 2019-01-14 09:56 | Progress Note ---
Assessment and Plan Acute congestive heart failure Cardiomyopathy, new onset with LVEF 20% Systemic Hypertension - better controlled Sinus tachycardia Non-compliance Hearing impairment Recommendations: Continue IV diuresis for one more day Continue guidelines directed medical therapy Schedule for georgette in am Subjective Date of service: 01/14/19 Principal diagnosis: CHF Interval history: Patient denies chest pain. Patient states that shortness of breath has improved. Edema also has improved Objective Vital Signs Temp Pulse Pulse Pulse Resp Resp BP 01/14/19 09:22 88 126/88 01/14/19 09:19 88 126/88 01/14/19 05:21 114 H 01/14/19 04:24 99.6 F 94 H 20 128/89 01/13/19 22:34 107 H 136/111 01/13/19 22:33 98.5 F 120 H 20 136/111 01/13/19 22:31 117 H 137/11 01/13/19 22:00 119 H 20 01/13/19 21:53 121 H 20 01/13/19 21:26 118 H 20 01/13/19 18:10 130/97 01/13/19 17:30 98.8 F 120 H 22 137/105 01/13/19 13:38 85 20 01/13/19 13:28 84 20 01/13/19 11:34 98.0 F 119 H 20 131/90 01/13/19 11:23 93 H 125/83 Pulse Ox 01/14/19 09:22 01/14/19 09:19 01/14/19 05:21 01/14/19 04:24 96 01/13/19 22:34 01/13/19 22:33 93 01/13/19 22:31 01/13/19 22:00 01/13/19 21:53 01/13/19 21:26 01/13/19 18:10 01/13/19 17:30 97 01/13/19 13:38 01/13/19 13:28 01/13/19 11:34 94 01/13/19 11:23 - Physical Examination General: No Apparent Distress HEENT: Positive: PERRL Neck: Negative: JVD/HJR Cardiac: Positive: Reg Rate and Rhythm Lungs: Positive: Rales, Wheezes Neuro: Positive: Grossly Intact, Other (Hearing impaired) Abdomen: Positive: Soft Extremities: Absent: edema
[2019-01-14] MEDS: TYLENOL PO PRN (18:56)
--- NOTE | 2019-01-14 19:05 | Progress Note ---
Assessment and Plan Assessment and plan: Patient is a 58-year-old man who is Deaf with past medical history of hypertension who presented to [facility] ED with chest pains and SOB. * CTA chest IMPRESSION: No evidence for pulmonary embolus. Mild CHF -Suspected New onset Acute systolic Congestive Heart failure: ECHO reviewed continue iv diuresis, Cardiology following -New onset Cardiomyopathy: stress test in AM, treat medically -Hypertensive Urgency: iv prn antihypertensive, Cardiac diet, counseled on compliance -Chest pain: Cardiology following, stress test in am -Hearing Impairment: Use Valve Pipe Irrigator for assistance -DVT ppx on sq heparin History Interval history: Patient was seen and examined. Follow-up on current diagnosis CHF,SOB is improved, no current CP. Overnight uneventful. Patient denies any nausea/vomiting or severe headaches. Imaging, nursing note, chart, labs and old chart reviewed. Discussed with patient, who writes to communicate. Hospitalist Physical - Physical exam Narrative exam: Gen: WDWN, NAD, Awake, Alert, Orientated HEENT: NCAT, EOMI, PERRL, OP Clear Neck: supple, no adenopathy, no thyromegaly, no JVD CVS/Heart: RRR, normal S1S2, pulses present bilaterally Chest/Lungs: diminished bs bilateral, Symmetrical chest expansion, good air entry bilaterally GI/Abdomen: soft, NTND, good bowel sounds, no guarding or rebound /Bladder: no suprapubic tenderness, no CVA or paraspinal tenderness Extermity/Skin: +e, no obvious rash MSK: FROM x 4 Neuro: CN 2-12 grossly intact except hearing but no new focal deficits Psych: calm - Constitutional Vitals: Temp Pulse Resp BP Pulse Ox 100.1 F H 88 20 121/83 97 01/14/19 17:00 01/14/19 17:00 01/14/19 17:00 01/14/19 17:00 01/14/19 17:00 General appearance: Present: no acute distress Results - Labs CBC & Chem 7: 01/13/19 05:11 01/13/19 05:11 Labs: Laboratory Last Values WBC 6.7 K/mm3 (4.5-11.0) 01/13/19 05:11 RBC 4.37 M/mm3 (3.65-5.03) 01/13/19 05:11 Hgb 12.3 gm/dl (11.8-15.2) 01/13/19 05:11 Hct 38.1 % (35.5-45.6) 01/13/19 05:11 MCV 87 fl (84-94) 01/13/19 05:11 MCH 28 pg (28-32) 01/13/19 05:11 MCHC 32 % (32-34) 01/13/19 05:11 RDW 15.5 % (13.2-15.2) H 01/13/19 05:11 Plt Count 211 K/mm3 (140-440) 01/13/19 05:11 Lymph % (Auto) 19.0 % (13.4-35.0) 01/13/19 05:11 [place] % (Auto) 11.4 % (0.0-7.3) H 01/13/19 05:11 Eos % (Auto) 1.7 % (0.0-4.3) 01/13/19 05:11 Baso % (Auto) 0.8 % (0.0-1.8) 01/13/19 05:11 Lymph # 1.3 K/mm3 (1.2-5.4) 01/13/19 05:11 [place] # 0.8 K/mm3 (0.0-0.8) 01/13/19 05:11 Eos # 0.1 K/mm3 (0.0-0.4) 01/13/19 05:11 Baso # 0.1 K/mm3 (0.0-0.1) 01/13/19 05:11 Seg Neutrophils % 67.1 % (40.0-70.0) 01/13/19 05:11 Seg Neutrophils # 4.5 K/mm3 (1.8-7.7) 01/13/19 05:11 PT 15.7 Sec. (12.2-14.9) H 01/12/19 09:07 INR 1.17 (0.87-1.13) H 01/12/19 09:07 APTT 28.4 Sec. (24.2-36.6) 01/12/19 09:07 Sodium 142 mmol/L (137-145) 01/13/19 05:11 Potassium 3.6 mmol/L (3.6-5.0) 01/13/19 05:11 Chloride 102.6 mmol/L (98-107) 01/13/19 05:11 Carbon Dioxide 26 mmol/L (22-30) 01/13/19 05:11 Anion Gap 17 mmol/L 01/13/19 05:11 BUN 15 mg/dL (9-20) 01/13/19 05:11 Creatinine 1.3 mg/dL (0.8-1.5) 01/13/19 05:11 Estimated GFR > 60 ml/min 01/13/19 05:11 BUN/Creatinine Ratio 12 % 01/13/19 05:11 Glucose 127 mg/dL (75-100) H 01/13/19 05:11 Hemoglobin A1c 7.1 % (4-6) H 01/12/19 14:00 Calcium 8.4 mg/dL (8.4-10.2) 01/13/19 05:11 Total Creatine Kinase 167 units/L (55-170) 01/12/19 21:27 CK-MB (CK-2) 4.0 ng/mL (0.0-4.0) 01/12/19 21:27 CK-MB (CK-2) Rel Index 2.3 (0-4) 01/12/19 21:27 Troponin T 0.015 ng/mL (0.00-0.029) 01/12/19 21:27 NT-Pro-B Natriuret Pep 3678 pg/mL (0-900) H 01/12/19 09:07 Triglycerides 64 mg/dL (2-149) 01/12/19 14:00 Cholesterol 125 mg/dL (50-199) 01/12/19 14:00 LDL Cholesterol Direct 98 mg/dL (50-130) 01/12/19 14:00 HDL Cholesterol 37 mg/dL (40-59) L 01/12/19 14:00 Cholesterol/HDL Ratio 3.37 % 01/12/19 14:00 Active Medications - Current Medications Current Medications: Generic Name Dose Route Start Last Admin Trade Name Freq PRN Reason Stop Dose Admin Acetaminophen 650 mg 01/12/19 11:40 01/14/19 18:56 Tylenol PO 650 mg Q4H PRN Administration Pain MILD(1-3)/Fever >100.5/ISAAC Albuterol 2.5 mg 01/12/19 11:40 Proventil IH Q4HRT PRN Shortness Of Breath Aspirin 81 mg 01/13/19 10:00 01/14/19 09:22 Baby Aspirin PO 81 mg QDAY JENS Administration Atorvastatin Calcium 40 mg 01/12/19 22:00 01/13/19 22:31 Lipitor PO 40 mg QHS JENS Administration Carvedilol 12.5 mg 01/12/19 22:00 01/14/19 09:22 Coreg PO 12.5 mg BID JENS Administration Furosemide 40 mg 01/12/19 18:00 01/14/19 18:07 Lasix IV 40 mg BID@0600,1800 JENS Administration Heparin Sodium (Porcine) 5,000 unit 01/12/19 14:00 01/14/19 14:36 Heparin SUB-Q 5,000 unit Q8HR JENS Administration Hydralazine HCl 10 mg 01/12/19 17:27 Apresoline IV Q4HR PRN Hypertension Isosorbide Dinitrate 40 mg 01/12/19 18:00 01/14/19 14:36 Isordil Titradose PO 40 mg Q8HR JENS Administration Lisinopril 40 mg 01/12/19 18:28 01/14/19 09:19 Zestril PO 40 mg QDAY JENS Administration Morphine Sulfate 2 mg 01/12/19 11:40 Morphine IV Q5MIN PRN Chest Pain unrelieved by NTG Nitroglycerin 0.4 mg 01/12/19 11:40 Nitrostat SL .Q5MIN PRN Chest Pain Ondansetron HCl 4 mg 01/12/19 11:40 Zofran IV Q8H PRN Nausea And Vomiting Pantoprazole Sodium 40 mg 01/13/19 10:00 01/14/19 09:22 Protonix PO 40 mg QDAY JENS Administration Sodium Chloride 10 ml 01/12/19 22:00 01/14/19 09:25 Sodium Chloride Flush Syringe 10 Ml IV 10 ml BID JENS Administration Sodium Chloride 10 ml 01/12/19 11:40 Sodium Chloride Flush Syringe 10 Ml IV PRN PRN LINE FLUSH Spironolactone 25 mg 01/13/19 13:00 01/14/19 09:22 Aldactone PO 25 mg QDAY JENS Administration
[2019-01-15] MEDS: ISORDIL TITRADOSE PO SCH ×3 (06:14→22:34)
[2019-01-15] MEDS: LASIX IV SCH ×2 (06:14→17:37)
[2019-01-15] MEDS: HEPARIN SUB-Q SCH ×3 (06:18→22:33)
[2019-01-15] MEDS ORDERED: LEXISCAN IV ONE ×2 (08:01→08:11)
--- NOTE | 2019-01-15 09:07 | Progress Note ---
Assessment and Plan Assessment and plan: Patient is a 58-year-old man who is Deaf with past medical history of hypertension who presented to [facility] ED with chest pains and SOB. * CTA chest IMPRESSION: No evidence for pulmonary embolus. Mild CHF * 2D ECHO conclusions: 4 chamber dilated cardiomyopathy, mild concentric LVH, global left ventricular systolic function is severely decreased, estimated EF is 20-25%, left atrium is moderate to severely dilated, mild to moderate MR, mild TR, RVSF is moderately reduced -Suspected New onset Acute systolic Congestive Heart failure: ECHO reviewed continue iv diuresis bid and monitor bmp closely, Cardiology following -New onset Cardiomyopathy: stress test in AM, treat medically -Hypertensive Urgency: iv prn antihypertensive, Cardiac diet, counseled on compliance -Chest pain: Cardiology following, stress test in am -Hearing Impairment: Use Netbackup Administrator for assistance -DVT ppx on sq heparin stress test today. History Interval history: Patient was seen and examined. Follow-up on current diagnosis CHF,SOB is improved, no current CP. Overnight uneventful except mild low grade temp of 100.1F, will investigate if he develops a fever indicative of temp of 100.4F or greater. Patient denies any nausea/vomiting or severe headaches. Imaging, nursing note, chart, labs and old chart reviewed. Discussed with patient, who writes to communicate. Hospitalist Physical - Physical exam Narrative exam: Gen: WDWN, NAD, Awake, Alert, Orientated HEENT: NCAT, EOMI, PERRL, OP Clear Neck: supple, no adenopathy, no thyromegaly, no JVD CVS/Heart: RRR, normal S1S2, pulses present bilaterally Chest/Lungs: diminished bs bilateral, Symmetrical chest expansion, good air entry bilaterally GI/Abdomen: soft, NTND, good bowel sounds, no guarding or rebound /Bladder: no suprapubic tenderness, no CVA or paraspinal tenderness Extermity/Skin: +e, no obvious rash MSK: FROM x 4 Neuro: CN 2-12 grossly intact except hearing but no new focal deficits Psych: calm - Constitutional Vitals: Temp Pulse Resp BP Pulse Ox 98.0 F 80 18 121/86 99 01/15/19 05:44 01/15/19 06:14 01/15/19 05:44 01/15/19 06:14 01/15/19 05:44 General appearance: Present: no acute distress Results - Labs CBC & Chem 7: 01/13/19 05:11 01/13/19 05:11 Labs: Laboratory Last Values WBC 6.7 K/mm3 (4.5-11.0) 01/13/19 05:11 RBC 4.37 M/mm3 (3.65-5.03) 01/13/19 05:11 Hgb 12.3 gm/dl (11.8-15.2) 01/13/19 05:11 Hct 38.1 % (35.5-45.6) 01/13/19 05:11 MCV 87 fl (84-94) 01/13/19 05:11 MCH 28 pg (28-32) 01/13/19 05:11 MCHC 32 % (32-34) 01/13/19 05:11 RDW 15.5 % (13.2-15.2) H 01/13/19 05:11 Plt Count 211 K/mm3 (140-440) 01/13/19 05:11 Lymph % (Auto) 19.0 % (13.4-35.0) 01/13/19 05:11 [place] % (Auto) 11.4 % (0.0-7.3) H 01/13/19 05:11 Eos % (Auto) 1.7 % (0.0-4.3) 01/13/19 05:11 Baso % (Auto) 0.8 % (0.0-1.8) 01/13/19 05:11 Lymph # 1.3 K/mm3 (1.2-5.4) 01/13/19 05:11 [place] # 0.8 K/mm3 (0.0-0.8) 01/13/19 05:11 Eos # 0.1 K/mm3 (0.0-0.4) 01/13/19 05:11 Baso # 0.1 K/mm3 (0.0-0.1) 01/13/19 05:11 Seg Neutrophils % 67.1 % (40.0-70.0) 01/13/19 05:11 Seg Neutrophils # 4.5 K/mm3 (1.8-7.7) 01/13/19 05:11 PT 15.7 Sec. (12.2-14.9) H 01/12/19 09:07 INR 1.17 (0.87-1.13) H 01/12/19 09:07 APTT 28.4 Sec. (24.2-36.6) 01/12/19 09:07 Sodium 142 mmol/L (137-145) 01/13/19 05:11 Potassium 3.6 mmol/L (3.6-5.0) 01/13/19 05:11 Chloride 102.6 mmol/L (98-107) 01/13/19 05:11 Carbon Dioxide 26 mmol/L (22-30) 01/13/19 05:11 Anion Gap 17 mmol/L 01/13/19 05:11 BUN 15 mg/dL (9-20) 01/13/19 05:11 Creatinine 1.3 mg/dL (0.8-1.5) 01/13/19 05:11 Estimated GFR > 60 ml/min 01/13/19 05:11 BUN/Creatinine Ratio 12 % 01/13/19 05:11 Glucose 127 mg/dL (75-100) H 01/13/19 05:11 Hemoglobin A1c 7.1 % (4-6) H 01/12/19 14:00 Calcium 8.4 mg/dL (8.4-10.2) 01/13/19 05:11 Total Creatine Kinase 167 units/L (55-170) 01/12/19 21:27 CK-MB (CK-2) 4.0 ng/mL (0.0-4.0) 01/12/19 21:27 CK-MB (CK-2) Rel Index 2.3 (0-4) 01/12/19 21:27 Troponin T 0.015 ng/mL (0.00-0.029) 01/12/19 21:27 NT-Pro-B Natriuret Pep 3678 pg/mL (0-900) H 01/12/19 09:07 Triglycerides 64 mg/dL (2-149) 01/12/19 14:00 Cholesterol 125 mg/dL (50-199) 01/12/19 14:00 LDL Cholesterol Direct 98 mg/dL (50-130) 01/12/19 14:00 HDL Cholesterol 37 mg/dL (40-59) L 01/12/19 14:00 Cholesterol/HDL Ratio 3.37 % 01/12/19 14:00 Active Medications - Current Medications Current Medications: Generic Name Dose Route Start Last Admin Trade Name Freq PRN Reason Stop Dose Admin Acetaminophen 650 mg 01/12/19 11:40 01/14/19 18:56 Tylenol PO 650 mg Q4H PRN Administration Pain MILD(1-3)/Fever >100.5/ISAAC Albuterol 2.5 mg 01/12/19 11:40 Proventil IH Q4HRT PRN Shortness Of Breath Aspirin 81 mg 01/13/19 10:00 01/14/19 09:22 Baby Aspirin PO 81 mg QDAY [facility] Administration Atorvastatin Calcium 40 mg 01/12/19 22:00 01/14/19 22:42 Lipitor PO 40 mg QHS [facility] Administration Carvedilol 12.5 mg 01/12/19 22:00 01/14/19 22:42 Coreg PO 12.5 mg BID [facility] Administration Furosemide 40 mg 01/12/19 18:00 01/15/19 06:14 Lasix IV Not Given BID@0600,1800 [facility] Heparin Sodium (Porcine) 5,000 unit 01/12/19 14:00 01/15/19 06:18 Heparin SUB-Q 5,000 unit Q8HR [facility] Administration Hydralazine HCl 10 mg 01/12/19 17:27 Apresoline IV Q4HR PRN Hypertension Isosorbide Dinitrate 40 mg 01/12/19 18:00 01/15/19 06:14 Isordil Titradose PO Not Given Q8HR [facility] Lisinopril 40 mg 01/12/19 18:28 01/14/19 09:19 Zestril PO 40 mg QDAY [facility] Administration Morphine Sulfate 2 mg 01/12/19 11:40 Morphine IV Q5MIN PRN Chest Pain unrelieved by NTG Nitroglycerin 0.4 mg 01/12/19 11:40 Nitrostat SL .Q5MIN PRN Chest Pain Ondansetron HCl 4 mg 01/12/19 11:40 Zofran IV Q8H PRN Nausea And Vomiting Pantoprazole Sodium 40 mg 01/13/19 10:00 01/14/19 09:22 Protonix PO 40 mg QDAY [facility] Administration Sodium Chloride 10 ml 01/12/19 22:00 01/14/19 22:43 Sodium Chloride Flush Syringe 10 Ml IV 10 ml BID JENS Administration Sodium Chloride 10 ml 01/12/19 11:40 Sodium Chloride Flush Syringe 10 Ml IV PRN PRN LINE FLUSH Spironolactone 25 mg 01/13/19 13:00 01/14/19 09:22 Aldactone PO 25 mg QDAY JENS Administration
--- NOTE | 2019-01-15 11:56 | Treadmill Report ---
THALLIUM STRESS TEST LEFT VENTRICLE: Left ventricle is severely dilated. There is fairly homogeneous uptake of the tracer in all segments. Mild diaphragmatic attenuation artifact is noted, as well as apical thinning. No significant fixed or reversible defects. Gated analysis demonstrates severe left ventricular systolic dysfunction with ejection fraction calculated at 11%. CONCLUSION: Evidence of severe dilated cardiomyopathy, with severe left ventricular systolic dysfunction. Perfusion study demonstrates no significant fixed or reversible defects, suggesting a likely nonischemic cardiomyopathy. Clinical correlation is recommended. [facility]# [id number] [place]
[2019-01-15] MEDS: PROTONIX PO SCH (12:00)
[2019-01-15] MEDS: SODIUM CHLORIDE FLUSH SYRINGE 10 ML IV SCH ×2 (12:01→22:35)
[2019-01-15] MEDS: ALDACTONE PO SCH (12:01)
[2019-01-15] MEDS: BABY ASPIRIN PO SCH (12:01)
[2019-01-15] MEDS: COREG PO SCH ×2 (12:01→22:33)
[2019-01-15] MEDS: ZESTRIL PO SCH (12:01)
--- NOTE | 2019-01-15 13:10 | Event Note ---
Date: 01/15/19 Patient underwent Lexiscan thallium stress test, results show a severe dilated cardiomyopathy, but no significant fixed or reversible defects, suggesting a likely nonischemic cardiomyopathy. Recommend medical therapy including afterload agents, beta blockers, oral antiplatelet therapy, diuretics and spironolactone.
[2019-01-16] MEDS: ISORDIL TITRADOSE PO SCH ×2 (05:52→15:52)
[2019-01-16] MEDS: LASIX IV SCH (05:53)
[2019-01-16] MEDS: HEPARIN SUB-Q SCH ×2 (05:53→15:54)
[2019-01-16] MEDS: ALDACTONE PO SCH (11:14)
[2019-01-16] MEDS: COREG PO SCH (11:14)
[2019-01-16] MEDS: ZESTRIL PO SCH (11:14)
[2019-01-16] MEDS: PROTONIX PO SCH (11:15)
[2019-01-16] MEDS: BABY ASPIRIN PO SCH (11:15)
[2019-01-16] MEDS: SODIUM CHLORIDE FLUSH SYRINGE 10 ML IV SCH (11:17)
[2019-01-16 12:41] VITALS: BP 121/89
--- NOTE | 2019-01-16 14:16 | Progress Note ---
Assessment and Plan Assessment and plan: Patient is a 58-year-old man who is Deaf with past medical history of hypertension who presented to [facility] ED with chest pains and SOB. * CTA chest IMPRESSION: No evidence for pulmonary embolus. Mild CHF * 2D ECHO conclusions: 4 chamber dilated cardiomyopathy, mild concentric LVH, global left ventricular systolic function is severely decreased, estimated EF is 20-25%, left atrium is moderate to severely dilated, mild to moderate MR, mild TR, RVSF is moderately reduced -Suspected New onset Acute systolic Congestive Heart failure: ECHO reviewed continue iv diuresis bid and monitor bmp closely, Cardiology following -New onset Cardiomyopathy, EF 20-25%: stress test unremarkable -Hypertensive Urgency: iv prn antihypertensive, Cardiac diet, counseled on compliance -Chest pain: Cardiology following, stress test in am -Hearing Impairment by history -DVT ppx on sq heparin Discharge once cleared by Cardiology History Interval history: Patient was seen and examined. Follow-up on current diagnosis CHF,SOB is improved, no current CP. Overnight uneventful except mild low grade temp of 100.1F, will investigate if he develops a fever indicative of temp of 100.4F or greater. Patient denies any nausea/vomiting or severe headaches. Imaging, nursing note, chart, labs and old chart reviewed. Discussed with patient, who writes to communicate. Hospitalist Physical - Physical exam Narrative exam: Gen: WDWN, NAD, Awake, Alert, Orientated HEENT: NCAT, EOMI, PERRL, OP Clear Neck: supple, no adenopathy, no thyromegaly, no JVD CVS/Heart: RRR, normal S1S2, pulses present bilaterally Chest/Lungs: diminished bs bilateral, Symmetrical chest expansion, good air entry bilaterally GI/Abdomen: soft, NTND, good bowel sounds, no guarding or rebound /Bladder: no suprapubic tenderness, no CVA or paraspinal tenderness Extermity/Skin: +e, no obvious rash MSK: FROM x 4 Neuro: CN 2-12 grossly intact except hearing but no new focal deficits Psych: calm - Constitutional Vitals: Temp Pulse Resp BP Pulse Ox 98.5 F 86 18 121/89 97 01/16/19 12:23 01/16/19 12:23 01/16/19 12:23 01/16/19 12:23 01/16/19 12:23 General appearance: Present: no acute distress Results - Labs CBC & Chem 7: 01/13/19 05:11 01/13/19 05:11 Labs: Laboratory Last Values WBC 6.7 K/mm3 (4.5-11.0) 01/13/19 05:11 RBC 4.37 M/mm3 (3.65-5.03) 01/13/19 05:11 Hgb 12.3 gm/dl (11.8-15.2) 01/13/19 05:11 Hct 38.1 % (35.5-45.6) 01/13/19 05:11 MCV 87 fl (84-94) 01/13/19 05:11 MCH 28 pg (28-32) 01/13/19 05:11 MCHC 32 % (32-34) 01/13/19 05:11 RDW 15.5 % (13.2-15.2) H 01/13/19 05:11 Plt Count 211 K/mm3 (140-440) 01/13/19 05:11 Lymph % (Auto) 19.0 % (13.4-35.0) 01/13/19 05:11 [place] % (Auto) 11.4 % (0.0-7.3) H 01/13/19 05:11 Eos % (Auto) 1.7 % (0.0-4.3) 01/13/19 05:11 Baso % (Auto) 0.8 % (0.0-1.8) 01/13/19 05:11 Lymph # 1.3 K/mm3 (1.2-5.4) 01/13/19 05:11 [place] # 0.8 K/mm3 (0.0-0.8) 01/13/19 05:11 Eos # 0.1 K/mm3 (0.0-0.4) 01/13/19 05:11 Baso # 0.1 K/mm3 (0.0-0.1) 01/13/19 05:11 Seg Neutrophils % 67.1 % (40.0-70.0) 01/13/19 05:11 Seg Neutrophils # 4.5 K/mm3 (1.8-7.7) 01/13/19 05:11 PT 15.7 Sec. (12.2-14.9) H 01/12/19 09:07 INR 1.17 (0.87-1.13) H 01/12/19 09:07 APTT 28.4 Sec. (24.2-36.6) 01/12/19 09:07 Sodium 142 mmol/L (137-145) 01/13/19 05:11 Potassium 3.6 mmol/L (3.6-5.0) 01/13/19 05:11 Chloride 102.6 mmol/L (98-107) 01/13/19 05:11 Carbon Dioxide 26 mmol/L (22-30) 01/13/19 05:11 Anion Gap 17 mmol/L 01/13/19 05:11 BUN 15 mg/dL (9-20) 01/13/19 05:11 Creatinine 1.3 mg/dL (0.8-1.5) 01/13/19 05:11 Estimated GFR > 60 ml/min 01/13/19 05:11 BUN/Creatinine Ratio 12 % 01/13/19 05:11 Glucose 127 mg/dL (75-100) H 01/13/19 05:11 Hemoglobin A1c 7.1 % (4-6) H 01/12/19 14:00 Calcium 8.4 mg/dL (8.4-10.2) 01/13/19 05:11 Total Creatine Kinase 167 units/L (55-170) 01/12/19 21:27 CK-MB (CK-2) 4.0 ng/mL (0.0-4.0) 01/12/19 21:27 CK-MB (CK-2) Rel Index 2.3 (0-4) 01/12/19 21:27 Troponin T 0.015 ng/mL (0.00-0.029) 01/12/19 21:27 NT-Pro-B Natriuret Pep 3678 pg/mL (0-900) H 01/12/19 09:07 Triglycerides 64 mg/dL (2-149) 01/12/19 14:00 Cholesterol 125 mg/dL (50-199) 01/12/19 14:00 LDL Cholesterol Direct 98 mg/dL (50-130) 01/12/19 14:00 HDL Cholesterol 37 mg/dL (40-59) L 01/12/19 14:00 Cholesterol/HDL Ratio 3.37 % 01/12/19 14:00 Active Medications - Current Medications Current Medications: Generic Name Dose Route Start Last Admin Trade Name Freq PRN Reason Stop Dose Admin Acetaminophen 650 mg 01/12/19 11:40 01/14/19 18:56 Tylenol PO 650 mg Q4H PRN Administration Pain MILD(1-3)/Fever >100.5/ISAAC Albuterol 2.5 mg 01/12/19 11:40 Proventil IH Q4HRT PRN Shortness Of Breath Aspirin 81 mg 01/13/19 10:00 01/16/19 11:15 Baby Aspirin PO 81 mg QDAY JENS Administration Atorvastatin Calcium 40 mg 01/12/19 22:00 01/15/19 22:33 Lipitor PO 40 mg QHS JENS Administration Carvedilol 12.5 mg 01/12/19 22:00 01/16/19 11:14 Coreg PO 12.5 mg BID JENS Administration Furosemide 40 mg 01/12/19 18:00 01/16/19 05:53 Lasix IV 40 mg BID@0600,1800 JENS Administration Heparin Sodium (Porcine) 5,000 unit 01/12/19 14:00 01/16/19 05:53 Heparin SUB-Q 5,000 unit Q8HR JNES Administration Hydralazine HCl 10 mg 01/12/19 17:27 Apresoline IV Q4HR PRN Hypertension Isosorbide Dinitrate 40 mg 01/12/19 18:00 01/16/19 05:52 Isordil Titradose PO 40 mg Q8HR JENS Administration Lisinopril 40 mg 01/12/19 18:28 01/16/19 11:14 Zestril PO 40 mg QDAY JENS Administration Morphine Sulfate 2 mg 01/12/19 11:40 Morphine IV Q5MIN PRN Chest Pain unrelieved by NTG Nitroglycerin 0.4 mg 01/12/19 11:40 Nitrostat SL .Q5MIN PRN Chest Pain Ondansetron HCl 4 mg 01/12/19 11:40 Zofran IV Q8H PRN Nausea And Vomiting Pantoprazole Sodium 40 mg 01/13/19 10:00 01/16/19 11:15 Protonix PO 40 mg QDAY JENS Administration Sodium Chloride 10 ml 01/12/19 22:00 01/16/19 11:17 Sodium Chloride Flush Syringe 10 Ml IV 10 ml BID JENS Administration Sodium Chloride 10 ml 01/12/19 11:40 Sodium Chloride Flush Syringe 10 Ml IV PRN PRN LINE FLUSH Spironolactone 25 mg 01/13/19 13:00 01/16/19 11:14 Aldactone PO 25 mg QDAY JENS Administration
--- NOTE | 2019-01-16 14:28 | Discharge Summary ---
Providers - Providers Date of Admission: 01/12/19 10:38 Date of discharge: 01/16/19 Attending physician: KARLEY NASCIMENTO 01/12/19 Consult to Cardiac Rehabilitation [CONS] Routine Reason For Exam: Phase I 01/12/19 11:40 Consult to Physician [CONS] Routine Comment: Consulting Provider: FARIDA SMITH Physician Instructions: Reason For Exam: CHF [facility] Condition: Stable Hospital course: Patient is a 58-year-old man who is Deaf with past medical history of hyperten neha who presented to [facility] ED with chest pains and SOB. * CTA chest IMPRESSION: No evidence for pulmonary embolus. Mild CHF * 2D ECHO conclusions: 4 chamber dilated cardiomyopathy, mild concentric LVH, global left ventricular systolic function is severely decreased, estimated EF is 20-25%, left atrium is moderate to severely dilated, mild to moderate MR, mild TR, RVSF is moderately reduced -Suspected New onset Acute systolic Congestive Heart failure: ECHO reviewed continue iv diuresis bid and monitor bmp closely, Cardiology following -New onset Cardiomyopathy, EF 20-25%: stress test unremarkable -Hypertensive Urgency: iv prn antihypertensive, Cardiac diet, counseled on compliance -Chest pain: Cardiology following, stress test in am -Hearing Impairment by history -DVT ppx on sq heparin Discharge once cleared by Cardiology==>ok to discharge per Dr. Winston, we reviewed his medications. follow up in 5 days to evaluate for lifeVEST, compliance stressed with patient Disposition: DC-01 TO HOME OR SELFCARE Time spent for discharge: 35 minutes Core Measure Documentation - Palliative Care Palliative Care/ Comfort Measures: Not Applicable - Core Measures Any of the following diagnoses?: heart failure - VTE Discharge Requirements Deep Vein Thrombosis/Pulmonary Embolism Present on Admission: No Has pt received <5 days of overlap therapy or INR<2.0: No Anticoagulant overlap therapy prescribed at discharge: No Contraindication No Overlap Therapy order at DC: Not Indicated - Heart Failure Discharge Requirements KAILA/ARB for LVSD if EF <40%: Yes Beta ada at discharge: Yes Exam - Physical Exam Narrative exam: Gen: WDWN, NAD, Awake, Alert, Orientated HEENT: NCAT, EOMI, PERRL, OP Clear Neck: supple, no adenopathy, no thyromegaly, no JVD CVS/Heart: RRR, normal S1S2, pulses present bilaterally Chest/Lungs: CTAB Symmetrical chest expansion, good air entry bilaterally GI/Abdomen: soft, NTND, good bowel sounds, no guarding or rebound /Bladder: no suprapubic tenderness, no CVA or paraspinal tenderness Extermity/Skin: +e, no obvious rash MSK: FROM x 4 Neuro: CN 2-12 grossly intact except hearing but no new focal deficits Psych: calm - Constitutional Vitals: Temp Pulse Resp BP Pulse Ox 98.5 F 86 18 121/89 97 01/16/19 12:23 01/16/19 12:23 01/16/19 12:23 01/16/19 12:23 01/16/19 12:23 Plan Activity: other (no strenous activity unless cleared by cardiology) Diet: low salt Follow up with: [facility]ARTA [Primary Care Provider] - 3-5 Days FARIDA SMITH MD [Staff Physician] - 7 Days Prescriptions: AtorvaSTATin [Lipitor] 40 mg PO QHS #30 tablet Spironolactone [Aldactone] 25 mg PO QDAY #30 tablet Carvedilol [Coreg] 12.5 mg PO BID #60 tablet Furosemide [Lasix TAB] 40 mg PO QDAY #30 tablet Pantoprazole [Protonix TAB] 40 mg PO QDAY #15 tablet Lisinopril [Zestril TAB] 40 mg PO QDAY #30 tablet
== END 2019-01-16 18:00 | disposition home or self-care (01) | DRG 291 ==
LOC: ED 06:29 → 3A 10:38
PROVIDERS: ADMIT Internal Medicine; ATTEND Internal Medicine
DX: I11.0 Hypertensive heart disease with heart failure (principal); I50.21 Acute systolic (congestive) heart failure; I16.0 Hypertensive urgency; H91.93 Unspecified hearing loss, bilateral; R07.89 Other chest pain; R00.0 Tachycardia, unspecified; I08.1 Rheumatic disorders of both mitral and tricuspid valves; I42.0 Dilated cardiomyopathy; Z87.891 Personal history of nicotine dependence; Z91.14 Patient's other noncompliance with medication regimen
CPT/HCPCS: 36415; 71045; 71046; 71275; 78452; 80048; 80061; 82550; 82553; 83036; 83880; 84484; 85025; 85610; 85730; 93005; 93010; 93017; 93306; 94640; G0378; A9270-GY; A9502; J1644; J1940; J2785; Q9967

== ENCOUNTER 2021-11-18 05:19 | Inpatient (IN) | payer MEDICARE ==
--- NOTE | 2021-11-18 05:33 | Event Note ---
Date: 11/18/21 The patient was evaluated in the emergency department for symptoms described in the history of present illness. He/she was evaluated in the context of the global COVID-19 pandemic, which necessitated consideration that the patient might be at risk for infection with the virus that causes COVID-19. Institutional protocols and algorithms that pertain to the evaluation of patients at risk for COVID-19 are in a state of rapid change based on information released by regulatory bodies including the CDC and federal and state organizations. These policies and algorithms were followed during the patient's care in the emergency department. Please note that these policies, procedures and recommendations changed on a rapid basis. Medical screening examination note EMS documentation not available at time of chart dictation Verbal report received from emergency medical services Patient is a 61-year-old gentleman, with a history of presumed nonischemic cardiomyopathy, EF of 20 to 25%, who is also reportedly hard of hearing as per EMS, who is brought to the hospital by emergency medical services with an EMS articulated complaint of shortness of breath. The patient is awake and breathing spontaneously. He is moving 4 extremities. EMS verbally indicates that the patient has not endorsed any pain. EMS communicated with this patient through written word. Check EKG, laboratory studies, x-ray the chest, detailed history and physical to be performed by oncoming ER provider
[2021-11-18 06:08] LABS: Basophils % (Auto) 0.7 % (0.0-1.8); Eosinophils # (Auto) 0.2 K/mm3 (0.0-0.4); Eosinophils % (Auto) 3.5 % (0.0-4.3); Hematocrit 34.1 % (35.5-45.6); Hemoglobin 10.7 gm/dl (11.8-15.2); Lymphocytes # (Auto) 1.4 K/mm3 (1.2-5.4); Lymphocytes % (Auto) 29.9 % (13.4-35.0); Mean Corpuscular HGB Conc 31 % (32-34); Mean Corpuscular Volume 93 fl (84-94); Monocytes # (Auto) 0.5 K/mm3 (0.0-0.8); Platelet Count 175 K/mm3 (140-440); Red Blood Count 3.66 M/mm3 (3.65-5.03); Red Cell Distribution Width 15.5 % (13.2-15.2)
[2021-11-18 06:17] LABS: INR 1.19 (0.87-1.13)
--- NOTE | 2021-11-18 06:21 | XRay Report ---
CHEST 2 VIEWS INDICATION / CLINICAL INFORMATION: Dyspnea. COMPARISON: 01/13/2019 FINDINGS: SUPPORT DEVICES: None. HEART / MEDIASTINUM: No significant abnormality. LUNGS / PLEURA: Pulmonary opacities are present throughout both lungs predominantly in the mid zone d istribution. No pleural effusion. No pneumothorax. ADDITIONAL FINDINGS: No significant additional findings. IMPRESSION: 1. Bilateral mid zone pulmonary opacities. The appearance is more suggestive of pulmonary edema, rath er than bilateral pneumonia. Clinical correlation recommended. Signer Name: Dianne Cook MD Signed: 11/18/2021 6:17 AM Workstation Name: [id number]
[2021-11-18 06:22] LABS: Alanine Aminotransferase 62 units/L (7-56); Albumin 3.5 g/dL (3.9-5); BUN/Creatinine Ratio 15; Blood Urea Nitrogen 25 mg/dL (9-20); Calcium 8.8 mg/dL (8.4-10.2); Hemolysis Index 4
[2021-11-18] MEDS ORDERED: FUROSEMIDE 40 MG/4 ML INJ IV ONE (06:44)
[2021-11-18] MEDS ORDERED: POTASSIUM CHLORIDE ER 20 MEQ TAB PO ONE (06:44)
--- NOTE | 2021-11-18 06:49 | Emergency Department Report ---
ED Shortness of Breath HPI - General Chief Complaint: Dyspnea/Respdistress Stated Complaint: IRENE Time Seen by Provider: 11/18/21 06:15 Source: patient, EMS Mode of arrival: Stretcher Limitations: Other - History of Present Illness Initial Comments: 61-year-old hard of hearing male with a past medical history nonischemic cardiomyopathy with a EF of 20 to 25%, hypertension, and diabetes presents to the hospital planing of dyspnea on exertion and orthopnea x1 week. Symptoms improved at rest and with sitting upright. Patient denies chest pain, cough, f ever and is vaccinated for COVID. Patient's been compliant with all his medication including diuretics. Patient does not currently see a continuous improvement facilitator but was evaluated by [facility] during admission here in 2019 when he was admitted for decompensated heart failure 01/15/2019 thallium stress test without ischemia 01/02/2019 2D ECHO conclusions: 4 chamber dilated cardiomyopathy, mild concentric LVH, global left ventricular systolic function is severely decreased, estimated EF is 20-25%, left atrium is moderate to severely dilated, mild to moderate MR, mild TR, RVSF is moderately reduced Current medications include Carvedilol 12.5 mg twice daily Metformin 1000 mg daily Lasix 40 mg daily Flomax 0.4 mg daily Patient's daughter Bree Mercado can be reached at [phone] - Related Data Previous Rx's Medication Instructions Recorded Last Taken Type Acetaminophen [Acetaminophen TAB] 650 mg PO Q4H PRN #15 tablet 01/16/19 Unknown Rx Aspirin [Aspirin BABY CHEW TAB] 81 mg PO QDAY #30 tab.chew 01/16/19 Unknown Rx AtorvaSTATin [Lipitor] 40 mg PO QHS #30 tablet 01/16/19 Unknown Rx Furosemide [Lasix TAB] 40 mg PO QDAY #30 tablet 01/16/19 Unknown Rx Pantoprazole [Protonix TAB] 40 mg PO QDAY #15 tablet 01/16/19 Unknown Rx Spironolactone [Aldactone] 25 mg PO QDAY #30 tablet 01/16/19 Unknown Rx carvediloL [Coreg] 12.5 mg PO BID #60 tablet 01/16/19 Unknown Rx lisinopriL [Zestril TAB] 40 mg PO QDAY #30 tablet 01/16/19 Unknown Rx Allergies Allergy/AdvReac Type Severity Reaction Status Date / Time No Known Allergies Allergy Unverified 01/12/19 06:41 ED Review of Systems ROS: Stated complaint: IRENE Other details as noted in HPI Comment: All other systems reviewed and negative ED Past Medical Hx - Past Medical History Previous Medical History?: Yes Hx Hypertension: Yes Hx Congestive Heart Failure: Yes (Nonischemic cardiomyopathy EF 20 to 25%) Hx Diabetes: Yes Hx Asthma: No Hx COPD: No - Surgical History Past Surgical History?: No - Social History Smoking Status: Never Smoker Substance Use Type: None - Medications Home Medications: Home Medications Medication Instructions Recorded Confirmed Last Taken Type Acetaminophen [Acetaminophen TAB] 650 mg PO Q4H PRN #15 tablet 01/16/19 Unknown Rx Aspirin [Aspirin BABY CHEW TAB] 81 mg PO QDAY #30 tab.chew 01/16/19 Unknown Rx AtorvaSTATin [Lipitor] 40 mg PO QHS #30 tablet 01/16/19 Unknown Rx Furosemide [Lasix TAB] 40 mg PO QDAY #30 tablet 01/16/19 Unknown Rx Pantoprazole [Protonix TAB] 40 mg PO QDAY #15 tablet 01/16/19 Unknown Rx Spironolactone [Aldactone] 25 mg PO QDAY #30 tablet 01/16/19 Unknown Rx carvediloL [Coreg] 12.5 mg PO BID #60 tablet 01/16/19 Unknown Rx lisinopriL [Zestril TAB] 40 mg PO QDAY #30 tablet 01/16/19 Unknown Rx ED Physical Exam - General Limitations: Other - Other Other exam information: General: No acute distress Head: Atraumatic Eyes: normal appearance ENT: Moist mucous membranes Neck: Normal appearance, no midline tenderness Chest: Bilateral crackles without tachypnea bilateral CV: Regular rate and rhythm Abdomen: Soft, normal bowel sounds, nontender, nondistended, no rebound or guarding Back: Normal inspection Extremity: Normal inspection, full range of motion, no calf tenderness or leg edema Neuro: Alert O x 3, no facial asymmetry, speech clear, no gross motor sensory deficit Psych: Appropriate behavior Skin: No rash ED Course Vital Signs 11/18/21 05:45 Temperature 99.1 F Pulse Rate 92 H Respiratory 18 Rate Blood Pressure 134/96 O2 Sat by Pulse 100 Oximetry ED Medical Decision Making - Lab Data Result diagrams: 11/18/21 05:37 11/18/21 05:37 Lab Results 11/18/21 11/18/21 11/18/21 Range/Units 05:37 05:37 05:37 WBC 4.6 (4.5-11.0) K/mm3 RBC 3.66 (3.65-5.03) M/mm3 Hgb 10.7 L (11.8-15.2) gm/dl Hct 34.1 L (35.5-45.6) % MCV 93 (84-94) fl MCH 29 (28-32) pg MCHC 31 L (32-34) % RDW 15.5 H (13.2-15.2) % Plt Count 175 (140-440) K/mm3 Lymph % (Auto) 29.9 (13.4-35.0) % [place] % (Auto) 12.0 H (0.0-7.3) % Eos % (Auto) 3.5 (0.0-4.3) % Baso % (Auto) 0.7 (0.0-1.8) % Lymph # (Auto) 1.4 (1.2-5.4) K/mm3 [place] # (Auto) 0.5 (0.0-0.8) K/mm3 Eos # (Auto) 0.2 (0.0-0.4) K/mm3 Baso # (Auto) 0.0 (0.0-0.1) K/mm3 Seg Neutrophils % 53.9 (40.0-70.0) % Seg Neutrophils # 2.5 (1.8-7.7) K/mm3 PT 16.4 H (12.2-14.9) Sec. INR 1.19 H (0.87-1.13) Sodium 142 (137-145) mmol/L Potassium 3.8 (3.6-5.0) mmol/L Chloride 105.2 (98-107) mmol/L Carbon Dioxide 25 (22-30) mmol/L Anion Gap 16 mmol/L BUN 25 H (9-20) mg/dL Creatinine 1.7 H (0.8-1.3) mg/dL Estimated GFR 50 ml/min BUN/Creatinine Ratio 15 % Glucose 125 H (75-100) mg/dL Calcium 8.8 (8.4-10.2) mg/dL Magnesium 1.70 (1.7-2.3) mg/dL Total Bilirubin 0.90 (0.1-1.2) mg/dL AST 55 H (5-40) units/L ALT 62 H (7-56) units/L Alkaline Phosphatase 70 (35-129) units/L Troponin T < 0.010 (0.00-0.029) ng/mL NT-Pro-B Natriuret Pep 4527 H (0-900) pg/mL Total Protein 8.5 H (6.3-8.2) g/dL Albumin 3.5 L (3.9-5) g/dL Albumin/Globulin Ratio 0.7 % - EKG Data -: EKG Interpreted by Ga EKG shows normal: sinus rhythm, intervals (QTC 517), QRS complexes (Widened QRS duration 126), ST-T waves (LVH with repull) Rate: normal - EKG Data When compared to previous EKG there are: no significant change - Radiology Data Radiology results: report reviewed CHEST 2 VIEWS INDICATION / CLINICAL INFORMATION: Dyspnea. COMPARISON: 01/13/2019 FINDINGS: SUPPORT DEVICES: None. HEART / MEDIASTINUM: No significant abnormality. LUNGS / PLEURA: Pulmonary opacities are present throughout both lungs predominantly in the mid zone distribution. No pleural effusion. No pneumothorax. ADDITIONAL FINDINGS: No significant additional findings. IMPRESSION: 1. Bilateral mid zone pulmonary opacities. The appearance is more suggestive of pulmonary edema, rather than bilateral pneumonia. Clinical correlation recommended. - Medical Decision Making 61-year-old male presents to the hospital with symptoms of shortness of breath on exertion and while sleeping for the past 1 week. Chest x-ray suggestive of pulmonary edema. Patient is a history nonischemic cardiomyopathy with a EF of 20 to 25%. Despite compliance with medications patient presents with acute CHF exacerbation. Treated in the ED with IV Lasix and p.o. potassium. EKG without acute findings. Patient does not endorse chest pain he had negative troponin. Negative stress test in 2019. Patient will be admitted to the hospitalist service with consultation with [place] field specialist ordered. Patient is fully vaccinated however, Covid test ordered to confirm negative status Critical Care Time: No Critical care attestation.: If time is entered above; I have spent that time in minutes in the direct care of this critically ill patient, excluding procedure time. ED Disposition Clinical Impression: CHF exacerbation, Nonischemic cardiomyopathy, Renal insufficiency Disposition: ADMITTED INPATIENT Is pt being admited?: Yes Condition: Stable Time of Disposition: 07:09 (Dr James hospitalist)
[2021-11-18] MEDS ORDERED: MORPHINE 4 MG/1 ML INJ IV PRN (07:14)
[2021-11-18 07:59] LABS: Chol/HDL Ratio 4.11 %
[2021-11-18] MEDS ORDERED: ONDANSETRON 4 MG/2 ML INJ IV PRN (08:00)
[2021-11-18] MEDS ORDERED: ACETAMINOPHEN 325 MG TAB PO PRN (08:00)
[2021-11-18] MEDS ORDERED: MORPHINE 2 MG/1 ML INJ IV PRN (08:00)
[2021-11-18] MEDS: HEPARIN 5,000 UNIT/1 ML VIAL SUB-Q SCH ×2 (08:07→22:27)
[2021-11-18] MEDS: FUROSEMIDE 40 MG/4 ML INJ IV SCH ×2 (08:55→22:26)
[2021-11-18] MEDS: ASPIRIN 81 MG TAB CHEW PO SCH (11:08)
--- NOTE | 2021-11-18 13:11 | History and Physical Report ---
History of Present Illness Date of examination: 11/18/21 Date of admission: 11/18/21 07:14 Chief complaint: Worsening shortness of breath and lower leg swelling History of present illness: 61-year-old male past medical history of congestive heart failure, hypertension, Non-insulin dependent type II diabetes mellitus, and BPH who presented with few days of shortness of breath, chest pressure, and lower leg swelling. 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 He does have a primary care provider that he does follow with. The patient admits to not utilizing salt and being compliant with his medications. In the ED patient was found to have lower extremity edema. Chest x-ray was performed that revealed increased interstitial markings suggestive of pulmonary edema. He was also found to have a proBNP of 4527, AST 55, ALT 62. Patient was initiated with IV Lasix for diuresis. The patient is being admitted for medical management of presumed acute on chronic heart failure. Past History Past Medical History: diabetes, heart failure, other (deafness) Past Surgical History: No surgical history Social history: single, lives with family, full code Family history: CAD, diabetes, hypertension Medications and Allergies Allergies Allergy/AdvReac Type Severity Reaction Status Date / Time No Known Allergies Allergy Unverified 01/12/19 06:41 Home Medications Medication Instructions Recorded Confirmed Last Taken Type Acetaminophen [Acetaminophen TAB] 650 mg PO Q4H PRN #15 tablet 01/16/19 Unknown Rx Aspirin [Aspirin BABY CHEW TAB] 81 mg PO QDAY #30 tab.chew 01/16/19 Unknown Rx AtorvaSTATin [Lipitor] 40 mg PO QHS #30 tablet 01/16/19 Unknown Rx Furosemide [Lasix TAB] 40 mg PO QDAY #30 tablet 01/16/19 Unknown Rx Pantoprazole [Protonix TAB] 40 mg PO QDAY #15 tablet 01/16/19 Unknown Rx Spironolactone [Aldactone] 25 mg PO QDAY #30 tablet 01/16/19 Unknown Rx carvediloL [Coreg] 12.5 mg PO BID #60 tablet 01/16/19 Unknown Rx lisinopriL [Zestril TAB] 40 mg PO QDAY #30 tablet 01/16/19 Unknown Rx Active Meds: Active Medications Acetaminophen (Acetaminophen 325 Mg Tab) 650 mg PO Q4H PRN PRN Reason: Pain MILD(1-3)/Fever >100.5/ISAAC Aspirin (Aspirin 81 Mg Tab Chew) 81 mg PO QDAY [facility] Last Admin: 11/18/21 11:08 Dose: 81 mg Atorvastatin Calcium (Atorvastatin 40 Mg Tab) 40 mg PO QHS [facility] Carvedilol (Carvedilol 12.5 Mg Tab) 12.5 mg PO BID [facility] Furosemide (Furosemide 40 Mg/4 Ml Inj) 40 mg IV 0600,1800 [facility] Last Admin: 11/18/21 08:55 Dose: 40 mg Heparin Sodium (Porcine) (Heparin 5,000 Unit/1 Ml Vial) 5,000 unit SUB-Q Q8H [facility] Last Admin: 11/18/21 08:07 Dose: 5,000 unit Morphine Sulfate (Morphine 2 Mg/1 Ml Inj) 2 mg IV Q4H PRN PRN Reason: Pain , Severe (7-10) Ondansetron HCl (Ondansetron 4 Mg/2 Ml Inj) 4 mg IV Q8H PRN PRN Reason: Nausea And Vomiting Oxycodone/Acetaminophen (Oxycodone /Acetaminophen 5-325mg Tab) 1 tab PO Q6H PRN PRN Reason: Pain, Moderate (4-6) Pantoprazole Sodium (Pantoprazole 40 Mg Tab) 40 mg PO QDAY [facility] Sodium Chloride (Sodium Chloride 0.9% 10 Ml Flush Syringe) 10 ml IV BID [facility] Sodium Chloride (Sodium Chloride 0.9% 10 Ml Flush Syringe) 10 ml IV PRN PRN PRN Reason: LINE FLUSH Spironolactone (Spironolactone 25 Mg Tab) 25 mg PO QDAY [facility] Review of Systems All systems: negative Constitutional: fatigue Cardiovascular: leg edema Respiratory: shortness of breath Exam - Constitutional Vitals: Temp Pulse Resp BP Pulse Ox 99.1 F 92 H 18 134/96 100 11/18/21 05:45 11/18/21 05:45 11/18/21 05:45 11/18/21 05:45 11/18/21 05:45 General appearance: Present: no acute distress, well-nourished - EENT Eyes: Present: PERRL, EOM intact ENT: hearing intact, clear oral mucosa, other (deafness) - Neck Neck: Present: supple, normal ROM - Respiratory Respiratory: bilateral: diminished - Cardiovascular Rhythm: regular Heart Sounds: Present: S1 & S2 - Extremities Extremities: no ischemia, pulses intact, pulses symmetrical, normal temperature, normal color, Full ROM Peripheral Pulses: within normal limits - Abdominal General gastrointestinal: Present: soft, non-tender, non-distended, normal bowel sounds Male genitourinary: Present: deferred - Rectal Rectal Exam: deferred - Integumentary Integumentary: Present: clear, warm, dry - Musculoskeletal Musculoskeletal: strength equal bilaterally - Psychiatric Psychiatric: appropriate mood/affect, intact judgment & insight, memory intact, cooperative - Neurologic Neurologic: CNII-XII intact, moves all extremities - Allied Health Allied health notes reviewed: nursing HEART Score - HEART Score Troponin: Troponin T < 0.010 ng/mL (0.00-0.029) 11/18/21 05:37 Results - Labs CBC & Chem 7: 11/18/21 05:37 11/18/21 05:37 Labs: Laboratory Last Values WBC 4.6 K/mm3 (4.5-11.0) 11/18/21 05:37 RBC 3.66 M/mm3 (3.65-5.03) 11/18/21 05:37 Hgb 10.7 gm/dl (11.8-15.2) L 11/18/21 05:37 Hct 34.1 % (35.5-45.6) L 11/18/21 05:37 MCV 93 fl (84-94) 11/18/21 05:37 MCH 29 pg (28-32) 11/18/21 05:37 MCHC 31 % (32-34) L 11/18/21 05:37 RDW 15.5 % (13.2-15.2) H 11/18/21 05:37 Plt Count 175 K/mm3 (140-440) 11/18/21 05:37 Lymph % (Auto) 29.9 % (13.4-35.0) 11/18/21 05:37 [place] % (Auto) 12.0 % (0.0-7.3) H 11/18/21 05:37 Eos % (Auto) 3.5 % (0.0-4.3) 11/18/21 05:37 Baso % (Auto) 0.7 % (0.0-1.8) 11/18/21 05:37 Lymph # (Auto) 1.4 K/mm3 (1.2-5.4) 11/18/21 05:37 [place] # (Auto) 0.5 K/mm3 (0.0-0.8) 11/18/21 05:37 Eos # (Auto) 0.2 K/mm3 (0.0-0.4) 11/18/21 05:37 Baso # (Auto) 0.0 K/mm3 (0.0-0.1) 11/18/21 05:37 Seg Neutrophils % 53.9 % (40.0-70.0) 11/18/21 05:37 Seg Neutrophils # 2.5 K/mm3 (1.8-7.7) 11/18/21 05:37 PT 16.4 Sec. (12.2-14.9) H 11/18/21 05:37 INR 1.19 (0.87-1.13) H 11/18/21 05:37 Sodium 142 mmol/L (137-145) 11/18/21 05:37 Potassium 3.8 mmol/L (3.6-5.0) 11/18/21 05:37 Chloride 105.2 mmol/L (98-107) 11/18/21 05:37 Carbon Dioxide 25 mmol/L (22-30) 11/18/21 05:37 Anion Gap 16 mmol/L 11/18/21 05:37 BUN 25 mg/dL (9-20) H 11/18/21 05:37 Creatinine 1.7 mg/dL (0.8-1.3) H 11/18/21 05:37 Estimated GFR 50 ml/min 11/18/21 05:37 BUN/Creatinine Ratio 15 % 11/18/21 05:37 Glucose 125 mg/dL (75-100) H 11/18/21 05:37 Hemoglobin A1c 6.6 % (4-6) H 11/18/21 05:37 Calcium 8.8 mg/dL (8.4-10.2) 11/18/21 05:37 Magnesium 1.70 mg/dL (1.7-2.3) 11/18/21 05:37 Total Bilirubin 0.90 mg/dL (0.1-1.2) 11/18/21 05:37 AST 55 units/L (5-40) H 11/18/21 05:37 ALT 62 units/L (7-56) H 11/18/21 05:37 Alkaline Phosphatase 70 units/L (35-129) 11/18/21 05:37 Troponin T < 0.010 ng/mL (0.00-0.029) 11/18/21 05:37 NT-Pro-B Natriuret Pep 4527 pg/mL (0-900) H 11/18/21 05:37 Total Protein 8.5 g/dL (6.3-8.2) H 11/18/21 05:37 Albumin 3.5 g/dL (3.9-5) L 11/18/21 05:37 Albumin/Globulin Ratio 0.7 % 11/18/21 05:37 Triglycerides 74 mg/dL (2-149) 11/18/21 05:37 Cholesterol 111 mg/dL (50-199) 11/18/21 05:37 LDL Cholesterol Direct 77 mg/dL (50-130) 11/18/21 05:37 HDL Cholesterol 27 mg/dL (40-59) L 11/18/21 05:37 Cholesterol/HDL Ratio 4.11 % 11/18/21 05:37 Assessment and Plan Assessment and plan: *Patient is legally deaf and requires the use of sign language services* Consulting Services Manager name/ID: [id number] #Acute on chronic heart failure - Continue CHF exacerbation protocol: Telemetry, Strict I/O, monitor urine output every shift, daily weights, afterload reduction, low-sodium diet, and fluid restriction of approximately 1.5 mL/day - Supplemental oxygen: None - ProBNP on admission: 4527 - Cardiology consulted; appreciate recs - TTE (11/18/2021) performed; pending read -Continue IV Lasix 40 mg twice daily. Restarting Coreg 12.5 mg twice daily. - Continue to monitor #MARY on CKD stage III Creatinine 1.7 (baseline unknown) Hold on starting KAILA inhibitor/ARB Renally dose meds and avoid nephrotoxic drugs. Consider nephrology consult if creatinine continues to worsen. Continue to monitor. #Non-insulin dependent type II diabetes mellitus - hemoglobin A1c: 6.6 - home regimen: Metformin 1000 mg daily - current regimen: Moderate SSI - blood glucose goal 140-180 while inpatient - continue to monitor #BPH -Continue home Flomax 0.4 mg daily #Advanced care planning -Disease education conducted, care plan discussed, diagnoses discussed, prognosis discussed, and patient acknowledges understanding with care plan -Time: +30 min Advance Directives: No VTE prophylaxis?: Chemical Plan of care discussed with patient/family: Yes
[2021-11-18] MEDS ORDERED: DEXTROSE 50% IN WATER (25GM) 50 ML SYRINGE IV PRN (13:16)
[2021-11-18] MEDS ORDERED: DEXTROSE 10% *Hypoglycemia IV PRN (13:23)
[2021-11-18] MEDS: carvediloL 12.5 MG TAB PO SCH (22:27)
[2021-11-18] MEDS: INSULIN REGULAR, HUMAN 100 UNITS/1 ML SUB-Q SCH (22:28)
[2021-11-19] MEDS: HEPARIN 5,000 UNIT/1 ML VIAL SUB-Q SCH ×3 (00:17→18:09)
[2021-11-19 06:00] LABS: Mean Corpuscular HGB Conc 31 % (32-34); Mean Corpuscular Volume 93 fl (84-94); Platelet Count 237 K/mm3 (140-440); Red Blood Count 3.77 M/mm3 (3.65-5.03); Red Cell Distribution Width 15.3 % (13.2-15.2)
[2021-11-19 06:12] LABS: Calcium 8.3 mg/dL (8.4-10.2)
[2021-11-19] MEDS: FUROSEMIDE 40 MG/4 ML INJ IV SCH ×2 (06:30→18:10)
[2021-11-19 07:17] LABS: Basophils % (Manual) 0 % (0.0-1.8); Total Cells Counted 100
[2021-11-19 07:18] LABS: Anisocytosis 1+; Hypochromasia 1+; Macrocytosis Few; Ovalocytes Few; Platelet Estimate Consistent w Auto
--- NOTE | 2021-11-19 07:55 | Progress Note ---
Assessment and Plan Assessment and plan: #Acute on chronic heart failure with reduced ejection fraction -TTE: Severe four-chamber dilated cardiomyopathy, LVEF 15-20 percent -Patient without outpatient cardiology follow-up since diagnosis years ago -proBNP 4527 -Continue Lasix, Coreg, KAILA held secondary to MARY versus CKD -Milrinone -Cardiology following, assistance appreciated #MARY on CKD stage III -Creatinine 1.6 (baseline unknown) -Avoid nephrotoxic agents and renally dose medications -We will continue to monitor #Noninsulin-dependent type 2 diabetes mellitus -A1c 6.6% -Continue sliding scale -Goal glucose 140-180 while inpatient #Hypokalemia -will replete and monitor #History of BPH -Continue Flomax #Advance care planning -Disease education, care plan, diagnosis, prognosis discussed with patient and gumaro richards. Both understand and acknowledge the current plan. -Time: +30 minutes Disposition Plan: Continue medical management History Interval history: Patient is deaf and communicates via sign language. Patient called his daughter for translation. She was updated on the plan. Patient had no symptoms or complaints at this time. Hospitalist Physical - Physical exam Narrative exam: GENERAL: Well-developed well-nourished. In no acute distress. HEENT: Normocephalic. Atraumatic. CHEST/LUNGS: CTAB on room air HEART/CARDIOVASCULAR: RRR. No murmur, rubs or gallops appreciated. ABDOMEN: +BS. NT/ND. SKIN: No rashes noted. NEURO: No focal motor deficit. Follows all commands. EXTREMITIES: No cyanosis, clubbing or edema. PSYCH: Cooperative. - Constitutional Vitals: Temp Pulse Resp BP Pulse Ox 98.5 F 80 22 114/74 98 11/19/21 04:03 11/19/21 04:03 11/19/21 04:03 11/19/21 04:03 11/19/21 04:03 General appearance: Present: no acute distress, well-nourished HEART Score - HEART Score Troponin: Troponin T < 0.010 ng/mL (0.00-0.029) 11/18/21 05:37 Results - Labs CBC & Chem 7: 11/19/21 05:08 11/19/21 05:08 Labs: Laboratory Last Values WBC 4.6 K/mm3 (4.5-11.0) 11/19/21 05:08 RBC 3.77 M/mm3 (3.65-5.03) 11/19/21 05:08 Hgb 11.0 gm/dl (11.8-15.2) L 11/19/21 05:08 Hct 35.0 % (35.5-45.6) L 11/19/21 05:08 MCV 93 fl (84-94) 11/19/21 05:08 MCH 29 pg (28-32) 11/19/21 05:08 MCHC 31 % (32-34) L 11/19/21 05:08 RDW 15.3 % (13.2-15.2) H 11/19/21 05:08 Plt Count 237 K/mm3 (140-440) 11/19/21 05:08 Lymph % (Auto) 29.9 % (13.4-35.0) 11/18/21 05:37 [place] % (Auto) 12.0 % (0.0-7.3) H 11/18/21 05:37 Eos % (Auto) 3.5 % (0.0-4.3) 11/18/21 05:37 Baso % (Auto) 0.7 % (0.0-1.8) 11/18/21 05:37 Lymph # (Auto) 1.4 K/mm3 (1.2-5.4) 11/18/21 05:37 [place] # (Auto) 0.5 K/mm3 (0.0-0.8) 11/18/21 05:37 Eos # (Auto) 0.2 K/mm3 (0.0-0.4) 11/18/21 05:37 Baso # (Auto) 0.0 K/mm3 (0.0-0.1) 11/18/21 05:37 Add Manual Diff Complete 11/19/21 05:08 Total Counted 100 11/19/21 05:08 Seg Neutrophils % 53.9 % (40.0-70.0) 11/18/21 05:37 Seg Neuts % (Manual) 49.0 % (40.0-70.0) 11/19/21 05:08 Band Neutrophils % 0 % 11/19/21 05:08 Lymphocytes % (Manual) 37.0 % (13.4-35.0) H 11/19/21 05:08 Reactive Lymphs % (Man) 0 % 11/19/21 05:08 Monocytes % (Manual) 12.0 % (0.0-7.3) H 11/19/21 05:08 Eosinophils % (Manual) 2.0 % (0.0-4.3) 11/19/21 05:08 Basophils % (Manual) 0 % (0.0-1.8) 11/19/21 05:08 Metamyelocytes % 0 % 11/19/21 05:08 Myelocytes % 0 % 11/19/21 05:08 Promyelocytes % 0 % 11/19/21 05:08 Blast Cells % 0 % 11/19/21 05:08 Nucleated RBC % Not Reportable 11/19/21 05:08 Seg Neutrophils # 2.5 K/mm3 (1.8-7.7) 11/18/21 05:37 Seg Neutrophils # Man 2.3 K/mm3 (1.8-7.7) 11/19/21 05:08 Band Neutrophils # 0.0 K/mm3 11/19/21 05:08 Lymphocytes # (Manual) 1.7 K/mm3 (1.2-5.4) 11/19/21 05:08 Abs React Lymphs (Man) 0.0 K/mm3 11/19/21 05:08 Monocytes # (Manual) 0.6 K/mm3 (0.0-0.8) 11/19/21 05:08 Eosinophils # (Manual) 0.1 K/mm3 (0.0-0.4) 11/19/21 05:08 Basophils # (Manual) 0.0 K/mm3 (0.0-0.1) 11/19/21 05:08 Metamyelocytes # 0.0 K/mm3 11/19/21 05:08 Myelocytes # 0.0 K/mm3 11/19/21 05:08 Promyelocytes # 0.0 K/mm3 11/19/21 05:08 Blast Cells # 0.0 K/mm3 11/19/21 05:08 WBC Morphology Not Reportable 11/19/21 05:08 Hypersegmented Neuts Not Reportable 11/19/21 05:08 Hyposegmented Neuts Not Reportable 11/19/21 05:08 Hypogranular Neuts Not Reportable 11/19/21 05:08 Smudge Cells Not Reportable 11/19/21 05:08 Toxic Granulation Not Reportable 11/19/21 05:08 Toxic Vacuolation Not Reportable 11/19/21 05:08 Dohle Bodies Not Reportable 11/19/21 05:08 Pelger-Huet Anomaly Not Reportable 11/19/21 05:08 [place] Rods Not Reportable 11/19/21 05:08 Platelet Estimate Consistent w auto 11/19/21 05:08 Clumped Platelets Not Reportable 11/19/21 05:08 Plt Clumps, EDTA Not Reportable 11/19/21 05:08 Large Platelets Not Reportable 11/19/21 05:08 Giant Platelets Not Reportable 11/19/21 05:08 Platelet Satelliting Not Reportable 11/19/21 05:08 Plt Morphology Comment Not Reportable 11/19/21 05:08 RBC Morphology Not Reportable 11/19/21 05:08 Dimorphic RBCs Not Reportable 11/19/21 05:08 Polychromasia Few 11/19/21 05:08 Hypochromasia 1+ 11/19/21 05:08 Poikilocytosis Not Reportable 11/19/21 05:08 Anisocytosis 1+ 11/19/21 05:08 Microcytosis Not Reportable 11/19/21 05:08 Macrocytosis Few 11/19/21 05:08 Spherocytes Not Reportable 11/19/21 05:08 Pappenheimer Bodies Not Reportable 11/19/21 05:08 Sickle Cells Not Reportable 11/19/21 05:08 Target Cells Not Reportable 11/19/21 05:08 Tear Drop Cells Not Reportable 11/19/21 05:08 Ovalocytes Few 11/19/21 05:08 Helmet Cells Not Reportable 11/19/21 05:08 [place] Bodies Not Reportable 11/19/21 05:08 [place] Rings Not Reportable 11/19/21 05:08 Akbar Cells Not Reportable 11/19/21 05:08 Bite Cells Not Reportable 11/19/21 05:08 Crenated Cell Not Reportable 11/19/21 05:08 Elliptocytes Few 11/19/21 05:08 Acanthocytes (Spur) Not Reportable 11/19/21 05:08 Rouleaux Not Reportable 11/19/21 05:08 Hemoglobin C Crystals Not Reportable 11/19/21 05:08 Schistocytes Not Reportable 11/19/21 05:08 Malaria parasites Not Reportable 11/19/21 05:08 Ortiz Bodies Not Reportable 11/19/21 05:08 Hem Pathologist Commnt No 11/19/21 05:08 PT 16.4 Sec. (12.2-14.9) H 11/18/21 05:37 INR 1.19 (0.87-1.13) H 11/18/21 05:37 Sodium 141 mmol/L (137-145) 11/19/21 05:08 Potassium 3.4 mmol/L (3.6-5.0) L 11/19/21 05:08 Chloride 107.2 mmol/L (98-107) H 11/19/21 05:08 Carbon Dioxide 24 mmol/L (22-30) 11/19/21 05:08 Anion Gap 13 mmol/L 11/19/21 05:08 BUN 27 mg/dL (9-20) H 11/19/21 05:08 Creatinine 1.6 mg/dL (0.8-1.3) H 11/19/21 05:08 Estimated GFR 53 ml/min 11/19/21 05:08 BUN/Creatinine Ratio 17 % 11/19/21 05:08 Glucose 134 mg/dL (75-100) H 11/19/21 05:08 POC Glucose 114 mg/dL (70-105) H 11/19/21 07:28 Hemoglobin A1c 6.6 % (4-6) H 11/18/21 05:37 Calcium 8.3 mg/dL (8.4-10.2) L 11/19/21 05:08 Magnesium 1.70 mg/dL (1.7-2.3) 11/18/21 05:37 Total Bilirubin 0.90 mg/dL (0.1-1.2) 11/18/21 05:37 AST 55 units/L (5-40) H 11/18/21 05:37 ALT 62 units/L (7-56) H 11/18/21 05:37 Alkaline Phosphatase 70 units/L (35-129) 11/18/21 05:37 Troponin T < 0.010 ng/mL (0.00-0.029) 11/18/21 05:37 NT-Pro-B Natriuret Pep 4527 pg/mL (0-900) H 11/18/21 05:37 Total Protein 8.5 g/dL (6.3-8.2) H 11/18/21 05:37 Albumin 3.5 g/dL (3.9-5) L 11/18/21 05:37 Albumin/Globulin Ratio 0.7 % 11/18/21 05:37 Triglycerides 74 mg/dL (2-149) 11/18/21 05:37 Cholesterol 111 mg/dL (50-199) 11/18/21 05:37 LDL Cholesterol Direct 77 mg/dL (50-130) 11/18/21 05:37 HDL Cholesterol 27 mg/dL (40-59) L 11/18/21 05:37 Cholesterol/HDL Ratio 4.11 % 11/18/21 05:37 Coronavirus (PCR) Negative (Negative) 11/18/21 09:00 Active Medications - Current Medications Current Medications: Generic Name Dose Route Start Last Admin Trade Name Freq PRN Reason Stop Dose Admin Acetaminophen 650 mg 11/18/21 08:00 Acetaminophen 325 Mg Tab PO Q4H PRN Pain MILD(1-3)/Fever >100.5/ISAAC Aspirin 81 mg 11/18/21 10:00 11/18/21 11:08 Aspirin 81 Mg Tab Chew PO 81 mg QDAY [facility]ENS Administration Atorvastatin Calcium 40 mg 11/18/21 22:00 11/18/21 22:27 Atorvastatin 40 Mg Tab PO 40 mg QHS [facility]ENS Administration Carvedilol 12.5 mg 11/18/21 10:00 11/18/21 22:27 Carvedilol 12.5 Mg Tab PO 12.5 mg BID JENS Administration Dextrose 0 ml 11/18/21 13:23 Dextrose 10% *Hypoglycemia IV PRN PRN Hypoglycemia Furosemide 40 mg 11/18/21 09:00 11/19/21 06:30 Furosemide 40 Mg/4 Ml Inj IV 40 mg 0600,1800 JENS Administration Heparin Sodium (Porcine) 5,000 unit 11/18/21 08:00 11/19/21 00:17 Heparin 5,000 Unit/1 Ml Vial SUB-Q 5,000 unit Q8H [facility]ENS Administration Insulin Human Regular 0 units 11/18/21 16:30 11/18/21 22:28 Insulin Regular, Human 100 Units/1 Ml SUB-Q Not Given ACHS [facility] Protocol Morphine Sulfate 2 mg 11/18/21 08:00 Morphine 2 Mg/1 Ml Inj IV Q4H PRN Pain , Severe (7-10) Ondansetron HCl 4 mg 11/18/21 08:00 Ondansetron 4 Mg/2 Ml Inj IV Q8H PRN Nausea And Vomiting Oxycodone/Acetaminophen 1 tab 11/18/21 08:00 Oxycodone /Acetaminophen 5-325mg Tab PO Q6H PRN Pain, Moderate (4-6) Pantoprazole Sodium 40 mg 11/18/21 10:00 Pantoprazole 40 Mg Tab PO QDAY [facility] Sodium Chloride 10 ml 11/18/21 10:00 11/18/21 22:27 Sodium Chloride 0.9% 10 Ml Flush Syringe IV Not Given BID JENS Sodium Chloride 10 ml 11/18/21 08:00 Sodium Chloride 0.9% 10 Ml Flush Syringe IV PRN PRN LINE FLUSH Spironolactone 25 mg 11/18/21 10:00 Spironolactone 25 Mg Tab PO QDAY [facility]
[2021-11-19] MEDS: INSULIN REGULAR, HUMAN 100 UNITS/1 ML SUB-Q SCH ×4 (08:00→22:56)
[2021-11-19] MEDS: carvediloL 12.5 MG TAB PO SCH ×3 (10:00→22:55)
[2021-11-19] MEDS: ASPIRIN 81 MG TAB CHEW PO SCH (11:29)
[2021-11-19] MEDS: SPIRONOLACTONE 25 MG TAB PO SCH ×2 (11:29→11:33)
[2021-11-19] MEDS: PANTOPRAZOLE 40 MG TAB PO SCH (11:31)
--- NOTE | 2021-11-19 12:31 | Consultation ---
History of Present Illness Consult date: 11/19/21 Consult reason: congestive heart failure History of present illness: The patient is a 61-year-old man with a history of a dilated nonischemic cardiomyopathy and severe systolic heart failure documented in his records since December 2018. At that time, his left ventricular ejection fraction was reported at 20 to 25%. A pharmacologic stress test demonstrated no ischemia, and he was placed on guideline directed medical therapy and outpatient follow-up. However, patient and his daughter who is communicating with me on video phone, both state that the patient has not been compliant with medical therapy, has not seen any primary medical doctor or director of oncology since his initial diagnosis. He presents to the hospital now with increasing shortness of breath, fatigue and orthopnea. EKG showed sinus rhythm, left ventricle hypertrophy with nonspecific ST and T wave changes. Chest x-ray showed borderline cardiomegaly and mild in terstitial edema. Echocardiogram done yesterday showed a severe cardiomyopathy with left ventricular ejection fraction 15 to 20%. This prompted cardiology consultation for further assessment and management of his heart failure exacerbation. Past History Past Medical History: diabetes, heart failure, hypertension, other (deafness) Past Surgical History: No surgical history Social history: single, lives with family, full code Family history: CAD, diabetes, hypertension Medications and Allergies Allergies Allergy/AdvReac Type Severity Reaction Status Date / Time No Known Allergies Allergy Unverified 01/12/19 06:41 Home Medications Medication Instructions Recorded Confirmed Last Taken Type Acetaminophen [Acetaminophen TAB] 650 mg PO Q4H PRN #15 tablet 01/16/19 Unknown Rx Aspirin [Aspirin BABY CHEW TAB] 81 mg PO QDAY #30 tab.chew 01/16/19 Unknown Rx AtorvaSTATin [Lipitor] 40 mg PO QHS #30 tablet 01/16/19 Unknown Rx Furosemide [Lasix TAB] 40 mg PO QDAY #30 tablet 01/16/19 Unknown Rx Pantoprazole [Protonix TAB] 40 mg PO QDAY #15 tablet 01/16/19 Unknown Rx Spironolactone [Aldactone] 25 mg PO QDAY #30 tablet 01/16/19 Unknown Rx carvediloL [Coreg] 12.5 mg PO BID #60 tablet 01/16/19 Unknown Rx lisinopriL [Zestril TAB] 40 mg PO QDAY #30 tablet 01/16/19 Unknown Rx Active Meds: Active Medications Acetaminophen (Acetaminophen 325 Mg Tab) 650 mg PO Q4H PRN PRN Reason: Pain MILD(1-3)/Fever >100.5/ISAAC Aspirin (Aspirin 81 Mg Tab Chew) 81 mg PO QDAY [facility] Last Admin: 11/19/21 11:29 Dose: 81 mg Atorvastatin Calcium (Atorvastatin 40 Mg Tab) 40 mg PO QHS [facility] Last Admin: 11/18/21 22:27 Dose: 40 mg Carvedilol (Carvedilol 12.5 Mg Tab) 12.5 mg PO BID [facility] Last Admin: 11/19/21 11:29 Dose: 12.5 mg Dextrose (Dextrose 10% *Hypoglycemia) 0 ml IV PRN PRN PRN Reason: Hypoglycemia Furosemide (Furosemide 40 Mg/4 Ml Inj) 40 mg IV 0600,1800 [facility] Last Admin: 11/19/21 06:30 Dose: 40 mg Heparin Sodium (Porcine) (Heparin 5,000 Unit/1 Ml Vial) 5,000 unit SUB-Q Q8H [facility] Last Admin: 11/19/21 11:30 Dose: 5,000 unit Insulin Human Regular (Insulin Regular, Human 100 Units/1 Ml) 0 units SUB-Q ACHS [facility]; Protocol Last Admin: 11/19/21 11:40 Dose: Not Given Morphine Sulfate (Morphine 2 Mg/1 Ml Inj) 2 mg IV Q4H PRN PRN Reason: Pain , Severe (7-10) Ondansetron HCl (Ondansetron 4 Mg/2 Ml Inj) 4 mg IV Q8H PRN PRN Reason: Nausea And Vomiting Oxycodone/Acetaminophen (Oxycodone /Acetaminophen 5-325mg Tab) 1 tab PO Q6H PRN PRN Reason: Pain, Moderate (4-6) Pantoprazole Sodium (Pantoprazole 40 Mg Tab) 40 mg PO QDAY [facility] Last Admin: 11/19/21 11:31 Dose: 40 mg Sodium Chloride (Sodium Chloride 0.9% 10 Ml Flush Syringe) 10 ml IV BID [facility] Last Admin: 11/19/21 11:39 Dose: 10 ml Sodium Chloride (Sodium Chloride 0.9% 10 Ml Flush Syringe) 10 ml IV PRN PRN PRN Reason: LINE FLUSH Spironolactone (Spironolactone 25 Mg Tab) 25 mg PO QDAY [facility] Last Admin: 11/19/21 11:33 Dose: 25 mg Review of Systems Cardiovascular: orthopnea, edema, shortness of breath, no chest pain, no palpitations, no rapid/irregular heart beat, no syncope, no lightheadedness Physical Examination Vital Signs Temp Pulse Resp BP Pulse Ox 99.1 F 92 H 18 134/96 100 11/18/21 05:45 11/18/21 05:45 11/18/21 05:45 11/18/21 05:45 11/18/21 05:45 General appearance: no acute distress HEENT: Positive: PERRL Neck: Positive: neck supple Cardiac: Positive: Reg Rate and Rhythm Lungs: Positive: Decreased Breath Sounds Neuro: Positive: Grossly Intact Abdomen: Positive: Soft Male genitourinary: Positive: deferred Skin: Positive: Clear Extremities: Present: +1 Edema Results 11/19/21 05:08 11/19/21 05:08 CBC 11/19/21 Range/Units 05:08 WBC 4.6 (4.5-11.0) K/mm3 RBC 3.77 (3.65-5.03) M/mm3 Hgb 11.0 L (11.8-15.2) gm/dl Hct 35.0 L (35.5-45.6) % Plt Count 237 (140-440) K/mm3 Comprehensive Metabolic Panel 11/19/21 Range/Units 05:08 Sodium 141 (137-145) mmol/L Potassium 3.4 L (3.6-5.0) mmol/L Chloride 107.2 H (98-107) mmol/L Carbon Dioxide 24 (22-30) mmol/L BUN 27 H (9-20) mg/dL Creatinine 1.6 H (0.8-1.3) mg/dL Glucose 134 H (75-100) mg/dL Calcium 8.3 L (8.4-10.2) mg/dL EKG interpretations - Telemetry EKG Rhythm: Sinus Rhythm Assessment and Plan - Patient Problems (1) Acute on chronic systolic heart failure Current Visit: Yes Status: Acute Plan to address problem: 61-year-old man with a history of end-stage dilated nonischemic cardiomyopathy and systolic heart failure dating back to 3 years ago, noncompliant with medical therapy, dietary salt restriction or outpatient physician follow-ups. He presents with decompensated systolic heart failure. We will treat him with diuretics, afterload agents, other guideline directed medical therapy as tolerated. A trial of intravenous milrinone for systolic heart failure management. Recommend a manager social consultation to assess the patient's long-term needs with regards to optimizing outpatient compliance with medical therapy and physician follow-ups.
[2021-11-19] MEDS: MILRINONE-D5W 20 MG/100 ML 20 MG/100 ML BAG IV SCH (16:14)
[2021-11-19] MEDS: ISOSORB DINIT/HYDRALAZINE 20-37.5MG TAB PO SCH ×2 (16:28→22:56)
[2021-11-20] MEDS: MILRINONE-D5W 20 MG/100 ML 20 MG/100 ML BAG IV SCH ×2 (00:40→09:16)
[2021-11-20] MEDS: HEPARIN 5,000 UNIT/1 ML VIAL SUB-Q SCH ×3 (00:41→16:25)
[2021-11-20] MEDS: FUROSEMIDE 40 MG/4 ML INJ IV SCH ×2 (06:36→19:25)
[2021-11-20] MEDS: ISOSORB DINIT/HYDRALAZINE 20-37.5MG TAB PO SCH ×2 (06:36→15:07)
[2021-11-20] MEDS: ASPIRIN 81 MG TAB CHEW PO SCH (09:38)
[2021-11-20] MEDS: carvediloL 12.5 MG TAB PO SCH (09:38)
[2021-11-20] MEDS: PANTOPRAZOLE 40 MG TAB PO SCH (09:38)
[2021-11-20] MEDS: SPIRONOLACTONE 25 MG TAB PO SCH (09:38)
[2021-11-20] MEDS: INSULIN REGULAR, HUMAN 100 UNITS/1 ML SUB-Q SCH ×3 (09:43→17:23)
--- NOTE | 2021-11-20 09:55 | Progress Note ---
Assessment and Plan - Patient Problems (1) Acute on chronic systolic heart failure Current Visit: Yes Status: Acute Plan to address problem: 61-year-old man with a history of end-stage dilated nonischemic cardiomyopathy and systolic heart failure dating back to 3 years ago, noncompliant with medical therapy, dietary salt restriction or outpatient physician follow-ups. He presents with decompensated systolic heart failure. We will treat him with diuretics, afterload agents, other guideline directed medical therapy as tolerated. A trial of intravenous milrinone for systolic heart failure management. Recommend a social service manager consultation to assess the patient's long-term needs with regards to optimizing outpatient compliance with medical therapy and physician follow-ups. Subjective Date of service: 11/20/21 Interval history: Patient is comfortable no acute distress, no new cardiac complaints. On monitor technician he has a sinus rhythm with frequent PACs. Objective Vital Signs Temp Pulse Resp BP Pulse Ox 11/20/21 09:38 129 H 11/20/21 06:36 125/83 11/20/21 03:19 99.5 F 110 H 99 11/20/21 03:18 98.5 F 20 125/83 11/19/21 22:57 98.6 F 73 16 111/73 94 11/19/21 22:56 101 H 11/19/21 22:55 101 H 11/19/21 21:00 98 11/19/21 19:19 98.6 F 74 18 128/90 95 11/19/21 15:23 98.9 F 80 18 113/85 97 11/19/21 15:00 60 11/19/21 11:29 71 121/64 - Physical Examination General: No Apparent Distress HEENT: Positive: PERRL Neck: Positive: neck supple Cardiac: Positive: Irregularly Regular Lungs: Positive: Decreased Breath Sounds Neuro: Positive: Grossly Intact Abdomen: Positive: Soft Skin: Positive: Clear Extremities: Present: +1 Edema
--- NOTE | 2021-11-20 10:08 | Electrocardiograph Report ---
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
[2021-11-20 10:18] LABS: Calcium 8.6 mg/dL (8.4-10.2)
[2021-11-20] MEDS: METOPROLOL TARTRATE 50 MG TAB PO SCH (11:45)
--- NOTE | 2021-11-20 12:11 | Progress Note ---
Assessment and Plan Assessment and plan: #Acute on chronic heart failure with reduced ejection fraction -TTE: Severe four-chamber dilated cardiomyopathy, LVEF 15-20 percent -Patient without outpatient cardiology follow-up since diagnosis years ago -proBNP 4527 -Continue Lasix, Coreg, KAILA held secondary to MARY versus CKD -Milrinone -Cardiology following, assistance appreciated #MARY on CKD stage III -Creatinine 1.7 today -Avoid nephrotoxic agents and renally dose medications -We will continue to monitor #Noninsulin-dependent type 2 diabetes mellitus -A1c 6.6% -Continue sliding scale -Goal glucose 140-180 while inpatient #Hypokalemia -will replete and monitor #History of BPH -Continue Flomax #Discharge planning -Patient to be discharged home once medically stable -Social work to provide patient with community resources and PCP options Disposition Plan: continue medical management History Interval history: Patient denies chest pain, shortness of breath and lower extremity swelling. Updated on current plan. Hospitalist Physical - Physical exam Narrative exam: GENERAL: Well-developed well-nourished. In no acute distress. CHEST/LUNGS: CTAB on room air HEART/CARDIOVASCULAR: RRR. No murmur, rubs +S3 gallop ABDOMEN: +BS. NT/ND. SKIN: No rashes noted. NEURO: No focal motor deficit. Follows all commands. EXTREMITIES: No cyanosis, clubbing or edema. PSYCH: Cooperative. - Constitutional Vitals: Temp Pulse Resp BP Pulse Ox 99.5 F 129 H 20 125/83 99 11/20/21 03:19 11/20/21 09:38 11/20/21 03:18 11/20/21 06:36 11/20/21 03:19 General appearance: Present: no acute distress, well-nourished HEART Score - HEART Score Troponin: Troponin T < 0.010 ng/mL (0.00-0.029) 11/18/21 05:37 Results - Labs CBC & Chem 7: 11/19/21 05:08 11/20/21 09:16 Labs: Laboratory Last Values WBC 4.6 K/mm3 (4.5-11.0) 11/19/21 05:08 RBC 3.77 M/mm3 (3.65-5.03) 11/19/21 05:08 Hgb 11.0 gm/dl (11.8-15.2) L 11/19/21 05:08 Hct 35.0 % (35.5-45.6) L 11/19/21 05:08 MCV 93 fl (84-94) 11/19/21 05:08 MCH 29 pg (28-32) 11/19/21 05:08 MCHC 31 % (32-34) L 11/19/21 05:08 RDW 15.3 % (13.2-15.2) H 11/19/21 05:08 Plt Count 237 K/mm3 (140-440) 11/19/21 05:08 Lymph % (Auto) 29.9 % (13.4-35.0) 11/18/21 05:37 [place] % (Auto) 12.0 % (0.0-7.3) H 11/18/21 05:37 Eos % (Auto) 3.5 % (0.0-4.3) 11/18/21 05:37 Baso % (Auto) 0.7 % (0.0-1.8) 11/18/21 05:37 Lymph # (Auto) 1.4 K/mm3 (1.2-5.4) 11/18/21 05:37 [place] # (Auto) 0.5 K/mm3 (0.0-0.8) 11/18/21 05:37 Eos # (Auto) 0.2 K/mm3 (0.0-0.4) 11/18/21 05:37 Baso # (Auto) 0.0 K/mm3 (0.0-0.1) 11/18/21 05:37 Add Manual Diff Complete 11/19/21 05:08 Total Counted 100 11/19/21 05:08 Seg Neutrophils % 53.9 % (40.0-70.0) 11/18/21 05:37 Seg Neuts % (Manual) 49.0 % (40.0-70.0) 11/19/21 05:08 Band Neutrophils % 0 % 11/19/21 05:08 Lymphocytes % (Manual) 37.0 % (13.4-35.0) H 11/19/21 05:08 Reactive Lymphs % (Man) 0 % 11/19/21 05:08 Monocytes % (Manual) 12.0 % (0.0-7.3) H 11/19/21 05:08 Eosinophils % (Manual) 2.0 % (0.0-4.3) 11/19/21 05:08 Basophils % (Manual) 0 % (0.0-1.8) 11/19/21 05:08 Metamyelocytes % 0 % 11/19/21 05:08 Myelocytes % 0 % 11/19/21 05:08 Promyelocytes % 0 % 11/19/21 05:08 Blast Cells % 0 % 11/19/21 05:08 Nucleated RBC % Not Reportable 11/19/21 05:08 Seg Neutrophils # 2.5 K/mm3 (1.8-7.7) 11/18/21 05:37 Seg Neutrophils # Man 2.3 K/mm3 (1.8-7.7) 11/19/21 05:08 Band Neutrophils # 0.0 K/mm3 11/19/21 05:08 Lymphocytes # (Manual) 1.7 K/mm3 (1.2-5.4) 11/19/21 05:08 Abs React Lymphs (Man) 0.0 K/mm3 11/19/21 05:08 Monocytes # (Manual) 0.6 K/mm3 (0.0-0.8) 11/19/21 05:08 Eosinophils # (Manual) 0.1 K/mm3 (0.0-0.4) 11/19/21 05:08 Basophils # (Manual) 0.0 K/mm3 (0.0-0.1) 11/19/21 05:08 Metamyelocytes # 0.0 K/mm3 11/19/21 05:08 Myelocytes # 0.0 K/mm3 11/19/21 05:08 Promyelocytes # 0.0 K/mm3 11/19/21 05:08 Blast Cells # 0.0 K/mm3 11/19/21 05:08 WBC Morphology Not Reportable 11/19/21 05:08 Hypersegmented Neuts Not Reportable 11/19/21 05:08 Hyposegmented Neuts Not Reportable 11/19/21 05:08 Hypogranular Neuts Not Reportable 11/19/21 05:08 Smudge Cells Not Reportable 11/19/21 05:08 Toxic Granulation Not Reportable 11/19/21 05:08 Toxic Vacuolation Not Reportable 11/19/21 05:08 Dohle Bodies Not Reportable 11/19/21 05:08 Pelger-Huet Anomaly Not Reportable 11/19/21 05:08 [place] Rods Not Reportable 11/19/21 05:08 Platelet Estimate Consistent w auto 11/19/21 05:08 Clumped Platelets Not Reportable 11/19/21 05:08 Plt Clumps, EDTA Not Reportable 11/19/21 05:08 Large Platelets Not Reportable 11/19/21 05:08 Giant Platelets Not Reportable 11/19/21 05:08 Platelet Satelliting Not Reportable 11/19/21 05:08 Plt Morphology Comment Not Reportable 11/19/21 05:08 RBC Morphology Not Reportable 11/19/21 05:08 Dimorphic RBCs Not Reportable 11/19/21 05:08 Polychromasia Few 11/19/21 05:08 Hypochromasia 1+ 11/19/21 05:08 Poikilocytosis Not Reportable 11/19/21 05:08 Anisocytosis 1+ 11/19/21 05:08 Microcytosis Not Reportable 11/19/21 05:08 Macrocytosis Few 11/19/21 05:08 Spherocytes Not Reportable 11/19/21 05:08 Pappenheimer Bodies Not Reportable 11/19/21 05:08 Sickle Cells Not Reportable 11/19/21 05:08 Target Cells Not Reportable 11/19/21 05:08 Tear Drop Cells Not Reportable 11/19/21 05:08 Ovalocytes Few 11/19/21 05:08 Helmet Cells Not Reportable 11/19/21 05:08 [place] Bodies Not Reportable 11/19/21 05:08 [place] Rings Not Reportable 11/19/21 05:08 [place] Cells Not Reportable 11/19/21 05:08 Bite Cells Not Reportable 11/19/21 05:08 Crenated Cell Not Reportable 11/19/21 05:08 Elliptocytes Few 11/19/21 05:08 Acanthocytes (Spur) Not Reportable 11/19/21 05:08 Rouleaux Not Reportable 11/19/21 05:08 Hemoglobin C Crystals Not Reportable 11/19/21 05:08 Schistocytes Not Reportable 11/19/21 05:08 Malaria parasites Not Reportable 11/19/21 05:08 [place]iz Bodies Not Reportable 11/19/21 05:08 Hem Pathologist Commnt No 11/19/21 05:08 PT 16.4 Sec. (12.2-14.9) H 11/18/21 05:37 INR 1.19 (0.87-1.13) H 11/18/21 05:37 Sodium 141 mmol/L (137-145) 11/20/21 09:16 Potassium 3.2 mmol/L (3.6-5.0) L 11/20/21 09:16 Chloride 105.4 mmol/L (98-107) 11/20/21 09:16 Carbon Dioxide 25 mmol/L (22-30) 11/20/21 09:16 Anion Gap 14 mmol/L 11/20/21 09:16 BUN 24 mg/dL (9-20) H 11/20/21 09:16 Creatinine 1.7 mg/dL (0.8-1.3) H 11/20/21 09:16 Estimated GFR 50 ml/min 11/20/21 09:16 BUN/Creatinine Ratio 14 % 11/20/21 09:16 Glucose 178 mg/dL (75-100) H 11/20/21 09:16 POC Glucose 158 mg/dL (70-105) H 11/20/21 11:18 Hemoglobin A1c 6.6 % (4-6) H 11/18/21 05:37 Calcium 8.6 mg/dL (8.4-10.2) 11/20/21 09:16 Magnesium 1.70 mg/dL (1.7-2.3) 11/18/21 05:37 Total Bilirubin 0.90 mg/dL (0.1-1.2) 11/18/21 05:37 AST 55 units/L (5-40) H 11/18/21 05:37 ALT 62 units/L (7-56) H 11/18/21 05:37 Alkaline Phosphatase 70 units/L (35-129) 11/18/21 05:37 Troponin T < 0.010 ng/mL (0.00-0.029) 11/18/21 05:37 NT-Pro-B Natriuret Pep 4527 pg/mL (0-900) H 11/18/21 05:37 Total Protein 8.5 g/dL (6.3-8.2) H 11/18/21 05:37 Albumin 3.5 g/dL (3.9-5) L 11/18/21 05:37 Albumin/Globulin Ratio 0.7 % 11/18/21 05:37 Triglycerides 74 mg/dL (2-149) 11/18/21 05:37 Cholesterol 111 mg/dL (50-199) 11/18/21 05:37 LDL Cholesterol Direct 77 mg/dL (50-130) 11/18/21 05:37 HDL Cholesterol 27 mg/dL (40-59) L 11/18/21 05:37 Cholesterol/HDL Ratio 4.11 % 11/18/21 05:37 Coronavirus (PCR) Negative (Negative) 11/18/21 09:00 [place]/IV: Voiding Method Toilet Active Medications - Current Medications Current Medications: Generic Name Dose Route Start Last Admin Trade Name Freq PRN Reason Stop Dose Admin Acetaminophen 650 mg 11/18/21 08:00 Acetaminophen 325 Mg Tab PO Q4H PRN Pain MILD(1-3)/Fever >100.5/ISAAC Aspirin 81 mg 11/18/21 10:00 11/20/21 09:38 Aspirin 81 Mg Tab Chew PO 81 mg QDAY JENS Administration Atorvastatin Calcium 40 mg 11/18/21 22:00 11/19/21 22:56 Atorvastatin 40 Mg Tab PO 40 mg QHS JENS Administration Dextrose 0 ml 11/18/21 13:23 Dextrose 10% *Hypoglycemia IV PRN PRN Hypoglycemia Furosemide 40 mg 11/18/21 09:00 11/20/21 06:36 Furosemide 40 Mg/4 Ml Inj IV 40 mg 0600,1800 JENS Administration Heparin Sodium (Porcine) 5,000 unit 11/18/21 08:00 11/20/21 09:42 Heparin 5,000 Unit/1 Ml Vial SUB-Q 5,000 unit Q8H JENS Administration Milrinone Lactate/Dextrose 20 mg in 100 mls @ 10.767 mls/hr 11/19/21 13:00 11/20/21 09:16 Milrinone-D5w 20 Mg/100 Ml IV 11/22/21 12:59 0.375 mcg/kg/min DIRECT JENS 10.767 mls/hr Administration Protocol 0.375 MCG/KG/MIN Insulin Human Regular 0 units 11/18/21 16:30 11/20/21 09:43 Insulin Regular, Human 100 Units/1 Ml SUB-Q Not Given ACHS [facility] Protocol Isosorbide Dinitrate/Hydralazine 1 each 11/19/21 14:00 11/20/21 06:36 Isosorb Dinit/Hydralazine 20-37.5mg Tab PO 1 each Q8HR JENS Administration Metoprolol Tartrate 50 mg 11/20/21 11:00 Metoprolol Tartrate 50 Mg Tab PO BID JENS Morphine Sulfate 2 mg 11/18/21 08:00 Morphine 2 Mg/1 Ml Inj IV Q4H PRN Pain , Severe (7-10) Ondansetron HCl 4 mg 11/18/21 08:00 Ondansetron 4 Mg/2 Ml Inj IV Q8H PRN Nausea And Vomiting Oxycodone/Acetaminophen 1 tab 11/18/21 08:00 Oxycodone /Acetaminophen 5-325mg Tab PO Q6H PRN Pain, Moderate (4-6) Pantoprazole Sodium 40 mg 11/18/21 10:00 11/20/21 09:38 Pantoprazole 40 Mg Tab PO 40 mg QDAY JENS Administration Sodium Chloride 10 ml 11/18/21 10:00 11/20/21 09:38 Sodium Chloride 0.9% 10 Ml Flush Syringe IV Not Given BID JENS Sodium Chloride 10 ml 11/18/21 08:00 Sodium Chloride 0.9% 10 Ml Flush Syringe IV PRN PRN LINE FLUSH Spironolactone 25 mg 11/18/21 10:00 11/20/21 09:38 Spironolactone 25 Mg Tab PO 25 mg QDAY JENS Administration Nutrition/Malnutrition Assess - Dietary Evaluation Nutrition/Malnutrition Findings: Nutrition Notes Start: 11/19/21 1 7:32 Freq: Status: Active Protocol: Document 11/19/21 17:32 PENNY (Rec: 11/19/21 17:50 PENNY [id number]) Nutrition Notes 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 Current Diet Cardiac Diet (since B 11/18). Labs/Tests 11/19: K 3.4, Cl 107.2, BUN 27 , Crea 1.6, Glu 134, Ca 8.3. Pertinent Medications 11/19: Nutritionally unremarkable. 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 Weight Status Overweight Subjective/Other Information RD consult for Malnutrition risk assessment. No report available on Pt's PO intake of meals at the time. Pt is deaf, and communicates through sign language. Pt shows no signs of concern for risk of malnutrition at the time, according to Physical Assessment History notes. Percent of energy/protein needs met: Prescribed Cardiac Diet provides for energy/protein needs (2,230 Kcal/85 g) during LOS. Burn Absent Trauma Absent GI Symptoms None Food Allergy No Skin Integrity/Comment Unspecified area of concern. Minimum of two criteria No Is patient on ventilator? No Is Patient Ambulatory and/or Out of Bed Yes REE-([place]-St. Jeor-ambulatory/OOB) [ 2368.379 NUTR.MSJOOB] Kcal/Kg value to use for calculation 20 Approximate Energy Requirements Using 1914 kcal/Kg Calculation Used for Recommendations Kcal/kg Additional Notes Protein: 0.8-1.2 g/Kg; 77-115 g/day. Fluids: 1 ml/Kcal, or as per MD. Nutrition Intervention Follow-Up By: 11/26/21 Additional Comments Continue monitoring food tolerance, %PO intake of meals , and BM.
[2021-11-20] MEDS: oxyCODONE /ACETAMINOPHEN 5-325MG TAB PO PRN (21:59)
[2021-11-21 06:40] LABS: Calcium 8.6 mg/dL (8.4-10.2)
--- NOTE | 2021-11-21 07:20 | Progress Note ---
Assessment and Plan Assessment and plan: #Acute on chronic heart failure with reduced ejection fraction -TTE: Severe four-chamber dilated cardiomyopathy, LVEF 15-20 percent -Patient without outpatient cardiology follow-up since diagnosis years ago -proBNP 4527 -continue Lasix, Coreg, KAILA held secondary to MARY versus CKD -continue Milrinone -Cardiology following, assistance appreciated #MARY on CKD stage III -Creatinine 1.7 today -Avoid nephrotoxic agents and renally dose medications -We will continue to monitor #Noninsulin-dependent type 2 diabetes mellitus -A1c 6.6% -Continue sliding scale -Goal glucose 140-180 while inpatient #Hypokalemia -started K dur 20MEQ qday -will replete and monitor #History of BPH -Continue Flomax #Discharge planning -Patient to be discharged home once medically stable -Social work to provide patient with community resources and PCP options History Interval history: Communicated with the patient via [employer] 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 Patient denies chest pain, shortness of breath and lower extremity swel ling. Updated on current plan and explained medications. Hospitalist Physical - Physical exam Narrative exam: GENERAL: Well-developed well-nourished. In no acute distress. CHEST/LUNGS: CTAB on room air HEART/CARDIOVASCULAR: RRR. No murmur, rubs +S3 gallop ABDOMEN: +BS. NT/ND. SKIN: No rashes noted. NEURO: No focal motor deficit. Follows all commands. EXTREMITIES: No cyanosis, clubbing or edema. PSYCH: Cooperative. - Constitutional Vitals: Temp Pulse Resp BP Pulse Ox 99.1 F 63 16 126/80 92 11/21/21 03:28 11/21/21 03:28 11/21/21 03:28 11/21/21 03:28 11/21/21 03:28 General appearance: Present: no acute distress, well-nourished HEART Score - HEART Score Troponin: Troponin T < 0.010 ng/mL (0.00-0.029) 11/18/21 05:37 Results - Labs CBC & Chem 7: 11/19/21 05:08 11/21/21 04:51 Labs: Laboratory Last Values WBC 4.6 K/mm3 (4.5-11.0) 11/19/21 05:08 RBC 3.77 M/mm3 (3.65-5.03) 11/19/21 05:08 Hgb 11.0 gm/dl (11.8-15.2) L 11/19/21 05:08 Hct 35.0 % (35.5-45.6) L 11/19/21 05:08 MCV 93 fl (84-94) 11/19/21 05:08 MCH 29 pg (28-32) 11/19/21 05:08 MCHC 31 % (32-34) L 11/19/21 05:08 RDW 15.3 % (13.2-15.2) H 11/19/21 05:08 Plt Count 237 K/mm3 (140-440) 11/19/21 05:08 Lymph % (Auto) 29.9 % (13.4-35.0) 11/18/21 05:37 Gilliam % (Auto) 12.0 % (0.0-7.3) H 11/18/21 05:37 Eos % (Auto) 3.5 % (0.0-4.3) 11/18/21 05:37 Baso % (Auto) 0.7 % (0.0-1.8) 11/18/21 05:37 Lymph # (Auto) 1.4 K/mm3 (1.2-5.4) 11/18/21 05:37 Gilliam # (Auto) 0.5 K/mm3 (0.0-0.8) 11/18/21 05:37 Eos # (Auto) 0.2 K/mm3 (0.0-0.4) 11/18/21 05:37 Baso # (Auto) 0.0 K/mm3 (0.0-0.1) 11/18/21 05:37 Add Manual Diff Complete 11/19/21 05:08 Total Counted 100 11/19/21 05:08 Seg Neutrophils % 53.9 % (40.0-70.0) 11/18/21 05:37 Seg Neuts % (Manual) 49.0 % (40.0-70.0) 11/19/21 05:08 Band Neutrophils % 0 % 11/19/21 05:08 Lymphocytes % (Manual) 37.0 % (13.4-35.0) H 11/19/21 05:08 Reactive Lymphs % (Man) 0 % 11/19/21 05:08 Monocytes % (Manual) 12.0 % (0.0-7.3) H 11/19/21 05:08 Eosinophils % (Manual) 2.0 % (0.0-4.3) 11/19/21 05:08 Basophils % (Manual) 0 % (0.0-1.8) 11/19/21 05:08 Metamyelocytes % 0 % 11/19/21 05:08 Myelocytes % 0 % 11/19/21 05:08 Promyelocytes % 0 % 11/19/21 05:08 Blast Cells % 0 % 11/19/21 05:08 Nucleated RBC % Not Reportable 11/19/21 05:08 Seg Neutrophils # 2.5 K/mm3 (1.8-7.7) 11/18/21 05:37 Seg Neutrophils # Man 2.3 K/mm3 (1.8-7.7) 11/19/21 05:08 Band Neutrophils # 0.0 K/mm3 11/19/21 05:08 Lymphocytes # (Manual) 1.7 K/mm3 (1.2-5.4) 11/19/21 05:08 Abs React Lymphs (Man) 0.0 K/mm3 11/19/21 05:08 Monocytes # (Manual) 0.6 K/mm3 (0.0-0.8) 11/19/21 05:08 Eosinophils # (Manual) 0.1 K/mm3 (0.0-0.4) 11/19/21 05:08 Basophils # (Manual) 0.0 K/mm3 (0.0-0.1) 11/19/21 05:08 Metamyelocytes # 0.0 K/mm3 11/19/21 05:08 Myelocytes # 0.0 K/mm3 11/19/21 05:08 Promyelocytes # 0.0 K/mm3 11/19/21 05:08 Blast Cells # 0.0 K/mm3 11/19/21 05:08 WBC Morphology Not Reportable 11/19/21 05:08 Hypersegmented Neuts Not Reportable 11/19/21 05:08 Hyposegmented Neuts Not Reportable 11/19/21 05:08 Hypogranular Neuts Not Reportable 11/19/21 05:08 Smudge Cells Not Reportable 11/19/21 05:08 Toxic Granulation Not Reportable 11/19/21 05:08 Toxic Vacuolation Not Reportable 11/19/21 05:08 Dohle Bodies Not Reportable 11/19/21 05:08 Pelger-Huet Anomaly Not Reportable 11/19/21 05:08 Marion Rods Not Reportable 11/19/21 05:08 Platelet Estimate Consistent w auto 11/19/21 05:08 Clumped Platelets Not Reportable 11/19/21 05:08 Plt Clumps, EDTA Not Reportable 11/19/21 05:08 Large Platelets Not Reportable 11/19/21 05:08 Giant Platelets Not Reportable 11/19/21 05:08 Platelet Satelliting Not Reportable 11/19/21 05:08 Plt Morphology Comment Not Reportable 11/19/21 05:08 RBC Morphology Not Reportable 11/19/21 05:08 Dimorphic RBCs Not Reportable 11/19/21 05:08 Polychromasia Few 11/19/21 05:08 Hypochromasia 1+ 11/19/21 05:08 Poikilocytosis Not Reportable 11/19/21 05:08 Anisocytosis 1+ 11/19/21 05:08 Microcytosis Not Reportable 11/19/21 05:08 Macrocytosis Few 11/19/21 05:08 Spherocytes Not Reportable 11/19/21 05:08 Pappenheimer Bodies Not Reportable 11/19/21 05:08 Sickle Cells Not Reportable 11/19/21 05:08 Target Cells Not Reportable 11/19/21 05:08 Tear Drop Cells Not Reportable 11/19/21 05:08 Ovalocytes Few 11/19/21 05:08 Helmet Cells Not Reportable 11/19/21 05:08 [place] Bodies Not Reportable 11/19/21 05:08 Kennard Rings Not Reportable 11/19/21 05:08 [place] Cells Not Reportable 11/19/21 05:08 Bite Cells Not Reportable 11/19/21 05:08 Crenated Cell Not Reportable 11/19/21 05:08 Elliptocytes Few 11/19/21 05:08 Acanthocytes (Spur) Not Reportable 11/19/21 05:08 Rouleaux Not Reportable 11/19/21 05:08 Hemoglobin C Crystals Not Reportable 11/19/21 05:08 Schistocytes Not Reportable 11/19/21 05:08 Malaria parasites Not Reportable 11/19/21 05:08 Ortiz Bodies Not Reportable 11/19/21 05:08 Hem Pathologist Commnt No 11/19/21 05:08 PT 16.4 Sec. (12.2-14.9) H 11/18/21 05:37 INR 1.19 (0.87-1.13) H 11/18/21 05:37 Sodium 138 mmol/L (137-145) 11/21/21 04:51 Potassium 3.2 mmol/L (3.6-5.0) L 11/21/21 04:51 Chloride 103.4 mmol/L (98-107) 11/21/21 04:51 Carbon Dioxide 24 mmol/L (22-30) 11/21/21 04:51 Anion Gap 14 mmol/L 11/21/21 04:51 BUN 21 mg/dL (9-20) H 11/21/21 04:51 Creatinine 1.7 mg/dL (0.8-1.3) H 11/21/21 04:51 Estimated GFR 50 ml/min 11/21/21 04:51 BUN/Creatinine Ratio 12 % 11/21/21 04:51 Glucose 119 mg/dL (75-100) H 11/21/21 04:51 POC Glucose 148 mg/dL (70-105) H 11/20/21 20:17 Hemoglobin A1c 6.6 % (4-6) H 11/18/21 05:37 Calcium 8.6 mg/dL (8.4-10.2) 11/21/21 04:51 Magnesium 1.80 mg/dL (1.7-2.3) 11/21/21 04:51 Total Bilirubin 0.90 mg/dL (0.1-1.2) 11/18/21 05:37 AST 55 units/L (5-40) H 11/18/21 05:37 ALT 62 units/L (7-56) H 11/18/21 05:37 Alkaline Phosphatase 70 units/L (35-129) 11/18/21 05:37 Troponin T < 0.010 ng/mL (0.00-0.029) 11/18/21 05:37 NT-Pro-B Natriuret Pep 4527 pg/mL (0-900) H 11/18/21 05:37 Total Protein 8.5 g/dL (6.3-8.2) H 11/18/21 05:37 Albumin 3.5 g/dL (3.9-5) L 11/18/21 05:37 Albumin/Globulin Ratio 0.7 % 11/18/21 05:37 Triglycerides 74 mg/dL (2-149) 11/18/21 05:37 Cholesterol 111 mg/dL (50-199) 11/18/21 05:37 LDL Cholesterol Direct 77 mg/dL (50-130) 11/18/21 05:37 HDL Cholesterol 27 mg/dL (40-59) L 11/18/21 05:37 Cholesterol/HDL Ratio 4.11 % 11/18/21 05:37 Coronavirus (PCR) Negative (Negative) 11/18/21 09:00 Peralta/IV: Voiding Method Toilet Active Medications - Current Medications Current Medications: Generic Name Dose Route Start Last Admin Trade Name Freq PRN Reason Stop Dose Admin Acetaminophen 650 mg 11/18/21 08:00 Acetaminophen 325 Mg Tab PO Q4H PRN Pain MILD(1-3)/Fever >100.5/ISAAC Aspirin 81 mg 11/18/21 10:00 11/20/21 09:38 Aspirin 81 Mg Tab Chew PO 81 mg QDAY JENS Administration Atorvastatin Calcium 40 mg 11/18/21 22:00 11/19/21 22:56 Atorvastatin 40 Mg Tab PO 40 mg QHS JENS Administration Dextrose 0 ml 11/18/21 13:23 Dextrose 10% *Hypoglycemia IV PRN PRN Hypoglycemia Furosemide 40 mg 11/18/21 09:00 11/20/21 19:25 Furosemide 40 Mg/4 Ml Inj IV 40 mg 0600,1800 JENS Administration Heparin Sodium (Porcine) 5,000 unit 11/18/21 08:00 11/20/21 16:25 Heparin 5,000 Unit/1 Ml Vial SUB-Q Not Given Q8H [facility] Milrinone Lactate/Dextrose 20 mg in 100 mls @ 10.767 mls/hr 11/19/21 13:00 11/20/21 09:16 Milrinone-D5w 20 Mg/100 Ml IV 11/22/21 12:59 0.375 mcg/kg/min DIRECT JENS 10.767 mls/hr Administration Protocol 0.375 MCG/KG/MIN Insulin Human Regular 0 units 11/18/21 16:30 11/20/21 17:23 Insulin Regular, Human 100 Units/1 Ml SUB-Q Not Given ACHS [facility] Protocol Isosorbide Dinitrate/Hydralazine 1 each 11/19/21 14:00 11/20/21 15:07 Isosorb Dinit/Hydralazine 20-37.5mg Tab PO Not Given Q8HR [facility] Metoprolol Tartrate 50 mg 11/20/21 11:00 11/20/21 11:45 Metoprolol Tartrate 50 Mg Tab PO Not Given BID [facility] Morphine Sulfate 2 mg 11/18/21 08:00 Morphine 2 Mg/1 Ml Inj IV Q4H PRN Pain , Severe (7-10) Ondansetron HCl 4 mg 11/18/21 08:00 Ondansetron 4 Mg/2 Ml Inj IV Q8H PRN Nausea And Vomiting Oxycodone/Acetaminophen 1 tab 11/18/21 08:00 11/20/21 21:59 Oxycodone /Acetaminophen 5-325mg Tab PO 1 tab Q6H PRN Administration Pain, Moderate (4-6) Pantoprazole Sodium 40 mg 11/18/21 10:00 11/20/21 09:38 Pantoprazole 40 Mg Tab PO 40 mg QDAY [facility] Administration Potassium Chloride 40 meq 11/21/21 07:19 Potassium Chloride Er 20 Meq Tab PO 11/21/21 07:20 ONCE ONE Potassium Chloride 20 meq 11/22/21 10:00 Potassium Chloride Er 20 Meq Tab PO QDAY [facility] Sodium Chloride 10 ml 11/18/21 10:00 11/20/21 09:38 Sodium Chloride 0.9% 10 Ml Flush Syringe IV Not Given BID JENS Sodium Chloride 10 ml 11/18/21 08:00 Sodium Chloride 0.9% 10 Ml Flush Syringe IV PRN PRN LINE FLUSH Spironolactone 25 mg 11/18/21 10:00 11/20/21 09:38 Spironolactone 25 Mg Tab PO 25 mg QDAY JENS Administration Nutrition/Malnutrition Assess - Dietary Evaluation Nutrition/Malnutrition Findings: Nutrition Notes Start: 11/19/21 17:32 Freq: Status: Active Protocol: Document 11/19/21 17:32 PENNY (Rec: 11/19/21 17:50 PENNY [id number]) Nutrition Notes 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 Current Diet Cardiac Diet (since B 11/18). Labs/Tests 11/19: K 3.4, Cl 107.2, BUN 27 , Crea 1.6, Glu 134, Ca 8.3. Pertinent Medications 11/19: Nutritionally unremarkable. 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 Weight Status Overweight Subjective/Other Information RD consult for Malnutrition risk assessment. No report available on Pt's PO intake of meals at the time. Pt is deaf, and communicates through sign language. Pt shows no signs of concern for risk of malnutrition at the time, according to Physical Assessment History notes. Percent of energy/protein needs met: Prescribed Cardiac Diet provides for energy/protein needs (2,230 Kcal/85 g) during LOS. Burn Absent Trauma Absent GI Symptoms None Food Allergy No Skin Integrity/Comment Unspecified area of concern. Minimum of two criteria No Is patient on ventilator? No Is Patient Ambulatory and/or Out of Bed Yes REE-([facility]-ambulatory/OOB) [ [phone] [id number]] Kcal/Kg value to use for calculation 20 Approximate Energy Requirements Using 1914 kcal/Kg Calculation Used for Recommendations Kcal/kg Additional Notes Protein: 0.8-1.2 g/Kg; 77-115 g/day. Fluids: 1 ml/Kcal, or as per MD. Nutrition Intervention Follow-Up By: 11/26/21 Additional Comments Continue monitoring food tolerance, %PO intake of meals , and BM.
[2021-11-21] MEDS ORDERED: POTASSIUM CHLORIDE ER 20 MEQ TAB PO SCH (08:00)
[2021-11-21] MEDS: MILRINONE-D5W 20 MG/100 ML 20 MG/100 ML BAG IV SCH (08:08)
[2021-11-21] MEDS: INSULIN REGULAR, HUMAN 100 UNITS/1 ML SUB-Q SCH ×4 (08:37→21:09)
[2021-11-21] MEDS: ISOSORB DINIT/HYDRALAZINE 20-37.5MG TAB PO SCH ×3 (08:38→21:06)
[2021-11-21] MEDS: METOPROLOL TARTRATE 50 MG TAB PO SCH ×3 (08:39→21:07)
[2021-11-21] MEDS: HEPARIN 5,000 UNIT/1 ML VIAL SUB-Q SCH ×3 (08:41→17:45)
[2021-11-21] MEDS: SPIRONOLACTONE 25 MG TAB PO SCH (09:25)
[2021-11-21] MEDS: PANTOPRAZOLE 40 MG TAB PO SCH (09:25)
[2021-11-21] MEDS: FUROSEMIDE 40 MG/4 ML INJ IV SCH ×2 (09:25→17:45)
[2021-11-21] MEDS: ASPIRIN 81 MG TAB CHEW PO SCH (09:26)
--- NOTE | 2021-11-21 11:54 | Progress Note ---
Assessment and Plan - Patient Problems (1) Acute on chronic systolic heart failure Current Visit: Yes Status: Acute Plan to address problem: 61-year-old man with a history of end-stage dilated nonischemic cardiomyopathy and systolic heart failure dating back to 3 years ago, noncompliant with medical therapy, dietary salt restriction or outpatient physician follow-ups. He presents with decompensated systolic heart failure. We will treat him with diuretics, afterload agents, other guideline directed medical therapy as tolerated. A trial of intravenous milrinone for systolic heart failure management. Recommend a social service worker consultation to assess the patient's long-term needs with regards to optimizing outpatient compliance with medical therapy and physician follow-ups. Subjective Date of service: 11/21/21 Interval history: Patient is comfortable, no acute distress. 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 Objective Vital Signs Temp Pulse Resp BP Pulse Ox 11/21/21 07:49 99.3 F 85 18 136/92 97 11/21/21 03:28 99.1 F 63 16 126/80 92 11/20/21 23:07 99.7 F H 65 14 124/81 96 11/20/21 19:48 99.8 F H 92 H 18 149/120 99 11/20/21 15:00 115 H - Physical Examination General: No Apparent Distress HEENT: Positive: PERRL Neck: Positive: neck supple Cardiac: Positive: Reg Rate and Rhythm Lungs: Positive: Decreased Breath Sounds Neuro: Positive: Grossly Intact Abdomen: Positive: Soft Skin: Positive: Clear Extremities: Present: +1 Edema - Labs and Meds Comprehensive Metabolic Panel 11/21/21 Range/Units 04:51 Sodium 138 (137-145) mmol/L Potassium 3.2 L (3.6-5.0) mmol/L Chloride 103.4 (98-107) mmol/L Carbon Dioxide 24 (22-30) mmol/L BUN 21 H (9-20) mg/dL Creatinine 1.7 H (0.8-1.3) mg/dL Glucose 119 H (75-100) mg/dL Calcium 8.6 (8.4-10.2) mg/dL
[2021-11-21] MEDS: oxyCODONE /ACETAMINOPHEN 5-325MG TAB PO PRN (15:20)
[2021-11-22] MEDS: HEPARIN 5,000 UNIT/1 ML VIAL SUB-Q SCH ×3 (00:15→15:18)
[2021-11-22] MEDS: MILRINONE-D5W 20 MG/100 ML 20 MG/100 ML BAG IV SCH (00:57)
[2021-11-22] MEDS: ISOSORB DINIT/HYDRALAZINE 20-37.5MG TAB PO SCH ×3 (06:15→22:32)
[2021-11-22] MEDS: FUROSEMIDE 40 MG/4 ML INJ IV SCH ×2 (06:16→18:57)
[2021-11-22] MEDS: INSULIN REGULAR, HUMAN 100 UNITS/1 ML SUB-Q SCH ×4 (08:21→22:45)
[2021-11-22 09:26] LABS: Calcium 8.7 mg/dL (8.4-10.2)
[2021-11-22] MEDS: POTASSIUM CHLORIDE ER 20 MEQ TAB PO SCH (09:29)
[2021-11-22] MEDS: METOPROLOL TARTRATE 50 MG TAB PO SCH ×2 (09:29→22:31)
[2021-11-22] MEDS: PANTOPRAZOLE 40 MG TAB PO SCH (09:29)
[2021-11-22] MEDS: ASPIRIN 81 MG TAB CHEW PO SCH (09:29)
[2021-11-22] MEDS: SPIRONOLACTONE 25 MG TAB PO SCH (09:30)
--- NOTE | 2021-11-22 14:06 | Progress Note ---
Assessment and Plan - Patient Problems (1) Acute on chronic systolic heart failure Current Visit: Yes Status: Acute Plan to address problem: 61-year-old man with a history of end-stage dilated nonischemic cardiomyopathy and systolic heart failure dating back to 3 years ago, noncompliant with medical therapy, dietary salt restriction or outpatient physician follow-ups. He presents with decompensated systolic heart failure. We will treat him with diuretics, afterload agents, other guideline directed medical therapy as tolerated. A trial of intravenous milrinone for systolic heart failure management to be completed today. Recommend a social media campaign manager consultation to assess the patient's long-term needs with regards to optimizing outpatient compliance with medical therapy and physician follow-ups. Subjective Date of service: 11/22/21 Interval history: Patient is comfortable, no new cardiac complaints, no cardiac events reported. His milrinone infusion is scheduled to be completed this afternoon. Objective Vital Signs Temp Pulse Resp BP BP Pulse Ox 11/22/21 10:09 22 97 11/22/21 09:33 99.3 F 92 H 20 108/74 94 11/22/21 09:30 92 H 108/74 11/22/21 09:29 92 H 108/74 11/22/21 05:33 98.3 F 11/22/21 03:07 101.2 F H 114 H 18 122/82 96 11/21/21 23:08 97.3 F L 61 18 106/67 100 11/21/21 21:07 105 H 126/80 11/21/21 21:06 105 H 126/80 11/21/21 19:23 100.1 F H 105 H 18 126/80 96 11/21/21 15:41 97.9 F 18 122/88 11/21/21 15:00 85 - Physical Examination General: No Apparent Distress HEENT: Positive: PERRL Neck: Positive: neck supple Cardiac: Positive: Reg Rate and Rhythm Lungs: Positive: Decreased Breath Sounds Neuro: Positive: Grossly Intact Abdomen: Positive: Soft Skin: Positive: Clear Extremities: Present: +1 Edema - Labs and Meds Comprehensive Metabolic Panel 11/22/21 Range/Units 08:39 Sodium 136 L (137-145) mmol/L Potassium 3.3 L (3.6-5.0) mmol/L Chloride 100.0 (98-107) mmol/L Carbon Dioxide 23 (22-30) mmol/L BUN 18 (9-20) mg/dL Creatinine 1.8 H (0.8-1.3) mg/dL Glucose 123 H (75-100) mg/dL Calcium 8.7 (8.4-10.2) mg/dL
--- NOTE | 2021-11-22 14:29 | Progress Note ---
Assessment and Plan Assessment and plan: #Acute on chronic heart failure with reduced ejection fraction -TTE: Severe four-chamber dilated cardiomyopathy, LVEF 15-20 percent -Patient without outpatient cardiology follow-up since diagnosis years ago -proBNP 4527 -continue Lasix, Coreg, KAILA held secondary to MARY versus CKD -milrinone infusion to finish this afternoon -Cardiology following, assistance appreciated #MARY on CKD stage III -Creatinine 1.8 today -Avoid nephrotoxic agents and renally dose medications -We will continue to monitor #Noninsulin-dependent type 2 diabetes mellitus -A1c 6.6% -Continue sliding scale -Goal glucose 140-180 while inpatient #Hypokalemia -continue K dur 20MEQ qday -will replete and monitor #History of BPH -Continue Flomax #Discharge planning -Patient to be discharged home once medically stable -Social work to provide patient with community resources and PCP options History Interval history: Communicated with the patient via [employer] with deaf interpreter Kasie (ID [id number]). Patient denies chest pain, shortness of breath and lower extremity swelling. Updated on current plan. Hospitalist Physical - Physical exam Narrative exam: GENERAL: Well-developed well-nourished. In no acute distress. CHEST/LUNGS: CTAB on room air HEART/CARDIOVASCULAR: RRR. No murmur, rubs +S3 gallop ABDOMEN: +BS. NT/ND. SKIN: No rashes noted. NEURO: No focal motor deficit. Follows all commands. EXTREMITIES: No cyanosis, clubbing or edema. PSYCH: Cooperative. - Constitutional Vitals: Temp Pulse Resp BP Pulse Ox 99.3 F 88 22 128/73 97 11/22/21 09:33 11/22/21 14:17 11/22/21 10:09 11/22/21 14:17 11/22/21 10:09 General appearance: Present: no acute distress, well-nourished HEART Score - HEART Score Troponin: Troponin T < 0.010 ng/mL (0.00-0.029) 11/18/21 05:37 Results - Labs CBC & Chem 7: 11/19/21 05:08 11/22/21 08:39 Labs: Laboratory Last Values WBC 4.6 K/mm3 (4.5-11.0) 11/19/21 05:08 RBC 3.77 M/mm3 (3.65-5.03) 11/19/21 05:08 Hgb 11.0 gm/dl (11.8-15.2) L 11/19/21 05:08 Hct 35.0 % (35.5-45.6) L 11/19/21 05:08 MCV 93 fl (84-94) 11/19/21 05:08 MCH 29 pg (28-32) 11/19/21 05:08 MCHC 31 % (32-34) L 11/19/21 05:08 RDW 15.3 % (13.2-15.2) H 11/19/21 05:08 Plt Count 237 K/mm3 (140-440) 11/19/21 05:08 Lymph % (Auto) 29.9 % (13.4-35.0) 11/18/21 05:37 [place] % (Auto) 12.0 % (0.0-7.3) H 11/18/21 05:37 Eos % (Auto) 3.5 % (0.0-4.3) 11/18/21 05:37 Baso % (Auto) 0.7 % (0.0-1.8) 11/18/21 05:37 Lymph # (Auto) 1.4 K/mm3 (1.2-5.4) 11/18/21 05:37 [place] # (Auto) 0.5 K/mm3 (0.0-0.8) 11/18/21 05:37 Eos # (Auto) 0.2 K/mm3 (0.0-0.4) 11/18/21 05:37 Baso # (Auto) 0.0 K/mm3 (0.0-0.1) 11/18/21 05:37 Add Manual Diff Complete 11/19/21 05:08 Total Counted 100 11/19/21 05:08 Seg Neutrophils % 53.9 % (40.0-70.0) 11/18/21 05:37 Seg Neuts % (Manual) 49.0 % (40.0-70.0) 11/19/21 05:08 Band Neutrophils % 0 % 11/19/21 05:08 Lymphocytes % (Manual) 37.0 % (13.4-35.0) H 11/19/21 05:08 Reactive Lymphs % (Man) 0 % 11/19/21 05:08 Monocytes % (Manual) 12.0 % (0.0-7.3) H 11/19/21 05:08 Eosinophils % (Manual) 2.0 % (0.0-4.3) 11/19/21 05:08 Basophils % (Manual) 0 % (0.0-1.8) 11/19/21 05:08 Metamyelocytes % 0 % 11/19/21 05:08 Myelocytes % 0 % 11/19/21 05:08 Promyelocytes % 0 % 11/19/21 05:08 Blast Cells % 0 % 11/19/21 05:08 Nucleated RBC % Not Reportable 11/19/21 05:08 Seg Neutrophils # 2.5 K/mm3 (1.8-7.7) 11/18/21 05:37 Seg Neutrophils # Man 2.3 K/mm3 (1.8-7.7) 11/19/21 05:08 Band Neutrophils # 0.0 K/mm3 11/19/21 05:08 Lymphocytes # (Manual) 1.7 K/mm3 (1.2-5.4) 11/19/21 05:08 Abs React Lymphs (Man) 0.0 K/mm3 11/19/21 05:08 Monocytes # (Manual) 0.6 K/mm3 (0.0-0.8) 11/19/21 05:08 Eosinophils # (Manual) 0.1 K/mm3 (0.0-0.4) 11/19/21 05:08 Basophils # (Manual) 0.0 K/mm3 (0.0-0.1) 11/19/21 05:08 Metamyelocytes # 0.0 K/mm3 11/19/21 05:08 Myelocytes # 0.0 K/mm3 11/19/21 05:08 Promyelocytes # 0.0 K/mm3 11/19/21 05:08 Blast Cells # 0.0 K/mm3 11/19/21 05:08 WBC Morphology Not Reportable 11/19/21 05:08 Hypersegmented Neuts Not Reportable 11/19/21 05:08 Hyposegmented Neuts Not Reportable 11/19/21 05:08 Hypogranular Neuts Not Reportable 11/19/21 05:08 Smudge Cells Not Reportable 11/19/21 05:08 Toxic Granulation Not Reportable 11/19/21 05:08 Toxic Vacuolation Not Reportable 11/19/21 05:08 Dohle Bodies Not Reportable 11/19/21 05:08 Pelger-Huet Anomaly Not Reportable 11/19/21 05:08 Marion Rods Not Reportable 11/19/21 05:08 Platelet Estimate Consistent w auto 11/19/21 05:08 Clumped Platelets Not Reportable 11/19/21 05:08 Plt Clumps, EDTA Not Reportable 11/19/21 05:08 Large Platelets Not Reportable 11/19/21 05:08 Giant Platelets Not Reportable 11/19/21 05:08 Platelet Satelliting Not Reportable 11/19/21 05:08 Plt Morphology Comment Not Reportable 11/19/21 05:08 RBC Morphology Not Reportable 11/19/21 05:08 Dimorphic RBCs Not Reportable 11/19/21 05:08 Polychromasia Few 11/19/21 05:08 Hypochromasia 1+ 11/19/21 05:08 Poikilocytosis Not Reportable 11/19/21 05:08 Anisocytosis 1+ 11/19/21 05:08 Microcytosis Not Reportable 11/19/21 05:08 Macrocytosis Few 11/19/21 05:08 Spherocytes Not Reportable 11/19/21 05:08 Pappenheimer Bodies Not Reportable 11/19/21 05:08 Sickle Cells Not Reportable 11/19/21 05:08 Target Cells Not Reportable 11/19/21 05:08 Tear Drop Cells Not Reportable 11/19/21 05:08 Ovalocytes Few 11/19/21 05:08 Helmet Cells Not Reportable 11/19/21 05:08 Ley-Durant Bodies Not Reportable 11/19/21 05:08 Swatara Rings Not Reportable 11/19/21 05:08 Akbar Cells Not Reportable 11/19/21 05:08 Bite Cells Not Reportable 11/19/21 05:08 Crenated Cell Not Reportable 11/19/21 05:08 Elliptocytes Few 11/19/21 05:08 Acanthocytes (Spur) Not Reportable 11/19/21 05:08 Rouleaux Not Reportable 11/19/21 05:08 Hemoglobin C Crystals Not Reportable 11/19/21 05:08 Schistocytes Not Reportable 11/19/21 05:08 Malaria parasites Not Reportable 11/19/21 05:08 Ortiz Bodies Not Reportable 11/19/21 05:08 Hem Pathologist Commnt No 11/19/21 05:08 PT 16.4 Sec. (12.2-14.9) H 11/18/21 05:37 INR 1.19 (0.87-1.13) H 11/18/21 05:37 Sodium 136 mmol/L (137-145) L 11/22/21 08:39 Potassium 3.3 mmol/L (3.6-5.0) L 11/22/21 08:39 Chloride 100.0 mmol/L (98-107) 11/22/21 08:39 Carbon Dioxide 23 mmol/L (22-30) 11/22/21 08:39 Anion Gap 16 mmol/L 11/22/21 08:39 BUN 18 mg/dL (9-20) 11/22/21 08:39 Creatinine 1.8 mg/dL (0.8-1.3) H 11/22/21 08:39 Estimated GFR 46 ml/min 11/22/21 08:39 BUN/Creatinine Ratio 10 % 11/22/21 08:39 Glucose 123 mg/dL (75-100) H 11/22/21 08:39 POC Glucose 155 mg/dL (70-105) H 11/22/21 11:19 Hemoglobin A1c 6.6 % (4-6) H 11/18/21 05:37 Calcium 8.7 mg/dL (8.4-10.2) 11/22/21 08:39 Magnesium 1.80 mg/dL (1.7-2.3) 11/21/21 04:51 Total Bilirubin 0.90 mg/dL (0.1-1.2) 11/18/21 05:37 AST 55 units/L (5-40) H 11/18/21 05:37 ALT 62 units/L (7-56) H 11/18/21 05:37 Alkaline Phosphatase 70 units/L (35-129) 11/18/21 05:37 Troponin T < 0.010 ng/mL (0.00-0.029) 11/18/21 05:37 NT-Pro-B Natriuret Pep 4527 pg/mL (0-900) H 11/18/21 05:37 Total Protein 8.5 g/dL (6.3-8.2) H 11/18/21 05:37 Albumin 3.5 g/dL (3.9-5) L 11/18/21 05:37 Albumin/Globulin Ratio 0.7 % 11/18/21 05:37 Triglycerides 74 mg/dL (2-149) 11/18/21 05:37 Cholesterol 111 mg/dL (50-199) 11/18/21 05:37 LDL Cholesterol Direct 77 mg/dL (50-130) 11/18/21 05:37 HDL Cholesterol 27 mg/dL (40-59) L 11/18/21 05:37 Cholesterol/HDL Ratio 4.11 % 11/18/21 05:37 Coronavirus (PCR) Negative (Negative) 11/18/21 09:00 [place]/IV: Voiding Method Toilet Active Medications - Current Medications Current Medications: Generic Name Dose Route Start Last Admin Trade Name Freq PRN Reason Stop Dose Admin Acetaminophen 650 mg 11/18/21 08:00 11/22/21 03:25 Acetaminophen 325 Mg Tab PO 650 mg Q4H PRN Administration Pain MILD(1-3)/Fever >100.5/ISAAC Aspirin 81 mg 11/18/21 10:00 11/22/21 09:29 Aspirin 81 Mg Tab Chew PO 81 mg QDAY JENS Administration Atorvastatin Calcium 40 mg 11/18/21 22:00 11/21/21 21:07 Atorvastatin 40 Mg Tab PO 40 mg QHS JENS Administration Dextrose 0 ml 11/18/21 13:23 Dextrose 10% *Hypoglycemia IV PRN PRN Hypoglycemia Furosemide 40 mg 11/18/21 09:00 11/22/21 06:16 Furosemide 40 Mg/4 Ml Inj IV 40 mg 0600,1800 JENS Administration Heparin Sodium (Porcine) 5,000 unit 11/18/21 08:00 11/22/21 09:28 Heparin 5,000 Unit/1 Ml Vial SUB-Q 5,000 unit Q8H JENS Administration Insulin Human Regular 0 units 11/18/21 16:30 11/22/21 13:59 Insulin Regular, Human 100 Units/1 Ml SUB-Q Not Given [facility] Protocol Isosorbide Dinitrate/Hydralazine 1 each 11/19/21 14:00 11/22/21 14:17 Isosorb Dinit/Hydralazine 20-37.5mg Tab PO 1 each Q8HR JENS Administration Metoprolol Tartrate 50 mg 11/20/21 11:00 11/22/21 09:29 Metoprolol Tartrate 50 Mg Tab PO Not Given BID JENS Morphine Sulfate 2 mg 11/18/21 08:00 Morphine 2 Mg/1 Ml Inj IV Q4H PRN Pain , Severe (7-10) Ondansetron HCl 4 mg 11/18/21 08:00 Ondansetron 4 Mg/2 Ml Inj IV Q8H PRN Nausea And Vomiting Oxycodone/Acetaminophen 1 tab 11/18/21 08:00 11/21/21 15:20 Oxycodone /Acetaminophen 5-325mg Tab PO 1 tab Q6H PRN Administration Pain, Moderate (4-6) Pantoprazole Sodium 40 mg 11/18/21 10:00 11/22/21 09:29 Pantoprazole 40 Mg Tab PO 40 mg QDAY JENS Administration Potassium Chloride 20 meq 11/22/21 10:00 11/22/21 09:29 Potassium Chloride Er 20 Meq Tab PO 20 meq QDAY JENS Administration Sodium Chloride 10 ml 11/18/21 10:00 11/22/21 09:29 Sodium Chloride 0.9% 10 Ml Flush Syringe IV 10 ml BID JENS Administration Sodium Chloride 10 ml 11/18/21 08:00 Sodium Chloride 0.9% 10 Ml Flush Syringe IV PRN PRN LINE FLUSH Spironolactone 25 mg 11/18/21 10:00 11/22/21 09:30 Spironolactone 25 Mg Tab PO 25 mg QDAY JENS Administration Nutrition/Malnutrition Assess - Dietary Evaluation Nutrition/Malnutrition Findings: Nutrition Notes Start: 11/19/21 17:32 Freq: Status: Active Protocol: Document 11/19/21 17:32 PENNY (Rec: 11/19/21 17:50 PENNY [id number]) Nutrition Notes Need for 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 Current Diet Cardiac Diet (since 11/18). Labs/Tests 11/19: K 3.4, Cl 107.2, BUN 27 , Crea 1.6, Glu 134, Ca 8.3. Pertinent Medications 11/19: Nutritionally unremarkable. 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 Weight Status Overweight Subjective/Other Information RD consult for Malnutrition risk assessment. No report available on Pt's PO intake of meals at the time. Pt is deaf, and communicates through sign language. Pt shows no signs of concern for risk of malnutrition at the time, according to Physical Assessment History notes. Percent of energy/protein needs met: Prescribed Cardiac Diet provides for energy/protein needs (2,230 Kcal/85 g) during LOS. Burn Absent Trauma Absent GI Symptoms None Food Allergy No Skin Integrity/Comment Unspecified area of concern. Minimum of two criteria No Is patient on ventilator? No Is Patient Ambulatory and/or Out of Bed Yes REE-([facility]-ambulatory/OOB) [ 2368.379 NUTR.MSJOOB] Kcal/Kg value to use for calculation 20 Approximate Energy Requirements Using 1914 kcal/Kg Calculation Used for Recommendations Kcal/kg Additional Notes Protein: 0.8-1.2 g/Kg; 77-115 g/day. Fluids: 1 ml/Kcal, or as per MD. Nutrition Intervention Follow-Up By: 11/26/21 Additional Comments Continue monitoring food tolerance, %PO intake of meals , and BM.
[2021-11-23] MEDS: HEPARIN 5,000 UNIT/1 ML VIAL SUB-Q SCH ×2 (00:05→10:39)
[2021-11-23] MEDS: oxyCODONE /ACETAMINOPHEN 5-325MG TAB PO PRN (03:57)
[2021-11-23 05:18] VITALS: BP 121/86
[2021-11-23 06:36] LABS: Calcium 8.5 mg/dL (8.4-10.2)
[2021-11-23] MEDS: FUROSEMIDE 40 MG/4 ML INJ IV SCH (07:00)
[2021-11-23] MEDS: ISOSORB DINIT/HYDRALAZINE 20-37.5MG TAB PO SCH ×2 (07:00→14:08)
[2021-11-23] MEDS: INSULIN REGULAR, HUMAN 100 UNITS/1 ML SUB-Q SCH ×2 (10:37→12:54)
[2021-11-23] MEDS: PANTOPRAZOLE 40 MG TAB PO SCH (10:38)
[2021-11-23] MEDS: ASPIRIN 81 MG TAB CHEW PO SCH (10:38)
[2021-11-23] MEDS: POTASSIUM CHLORIDE ER 20 MEQ TAB PO SCH (10:38)
[2021-11-23] MEDS: SPIRONOLACTONE 25 MG TAB PO SCH (10:38)
[2021-11-23] MEDS: METOPROLOL TARTRATE 50 MG TAB PO SCH (10:39)
--- NOTE | 2021-11-23 12:31 | Progress Note ---
Assessment and Plan 1. Acute on chronic systolic heart failure (HFrEF): EF 15-20%. Now clinically much improved. 2. Acute on CKD 3. Medical non-compliance Recommend: 1. Continue current therapy 2. Add KAILA I or ARB once renal function is stable 3. Consistent outpatient cardiology f/u Subjective Date of service: 11/23/21 Interval history: No acute events. Pt reports dyspnea much improved. Objective Vital Signs Temp Pulse Resp BP BP Pulse Ox 11/23/21 04:20 98.8 F 84 16 121/86 98 11/23/21 00:02 100.1 F H 78 6 L 101/62 97 11/22/21 23:00 93 H 11/22/21 22:31 90 11/22/21 21:12 100.1 F H 108 H 20 140/98 100 11/22/21 18:27 93 H 18 114/78 11/22/21 14:17 88 128/73 - Physical Examination General: No Apparent Distress HEENT: Positive: PERRL Neck: Positive: neck supple Cardiac: Positive: Reg Rate and Rhythm Lungs: Positive: Rhonchi Neuro: Positive: Grossly Intact Abdomen: Positive: Soft Skin: Positive: Clear Extremities: Present: +1 Edema - Labs and Meds Comprehensive Metabolic Panel 11/23/21 Range/Units 05:19 Sodium 136 L (137-145) mmol/L Potassium 3.6 (3.6-5.0) mmol/L Chloride 103.6 (98-107) mmol/L Carbon Dioxide 22 (22-30) mmol/L BUN 20 (9-20) mg/dL Creatinine 1.7 H (0.8-1.3) mg/dL Glucose 122 H (75-100) mg/dL Calcium 8.5 (8.4-10.2) mg/dL
--- NOTE | 2021-11-23 13:40 | Discharge Summary ---
Providers - Providers Date of Admission: 11/18/21 07:14 Date of discharge: 11/23/21 Attending physician: ANNETTE WHITE MD 11/18/21 06:53 Consult to Physician [CONS] Urgent Comment: [facility] Instructions: Reason For Exam: acute chf, nonischemic cardiomyopathy Primary care physician: DOLL WIGS HACKLER Hospitalization Condition: Stable Disposition: 30 STILL A PATIENT Exam - Constitutional Vitals: Temp Pulse Resp BP Pulse Ox 98.8 F 94 H 16 121/86 98 11/23/21 04:20 11/23/21 12:27 11/23/21 04:20 11/23/21 04:20 11/23/21 12:27 Plan Care Plan Goals: Please establish care with a primary care provider with the resources provided to you. Take all your medications with you. Please have your primary care provider refer you to a production team manager to manage your heart failure. If you are unable to find one, we suggest that you schedule an appointment as soon as possible with the production team manager who saw you in the hospital. Try to consume less than 2000 mg of salt daily and less than 1.5 L of liquids (including food such as soup). This will help to keep the fluid off of you that has caused your symptoms. Follow up with: PRIMARY MD MONIE [Primary Care Provider] - 7 Days Prescriptions: AtorvaSTATin [Lipitor] 40 mg PO QHS 30 Days #30 tablet Spironolactone [Aldactone] 25 mg PO QDAY 30 Days #30 tablet Aspirin [Aspirin BABY CHEW TAB] 81 mg PO QDAY 30 Days #30 tab.chew Isosorb Dinit/Hydralazine [Bidil 20/37.5MG] 1 each PO Q8HR 30 Days #90 tablet Potassium Chloride [K-Dur] 10 meq PO QDAY 14 Days #14 tab Furosemide [Lasix] 40 mg PO BID 30 Days #60 tab Metoprolol [Lopressor TAB] 50 mg PO BID 30 Days #60 tablet
== END 2021-11-23 16:11 | disposition home or self-care (01) | DRG 291 ==
LOC: ED 05:19 → 4A 07:14
PROVIDERS: ADMIT Student in an Organized Health Care Education/Training Program; ATTEND Student in an Organized Health Care Education/Training Program
DX: I13.0 Hypertensive heart and chronic kidney disease with heart failure and stage 1 through stage 4 chronic kidney disease, or unspecified chronic kidney disease (principal); I50.23 Acute on chronic systolic (congestive) heart failure; N17.9 Acute kidney failure, unspecified; I42.8 Other cardiomyopathies; E11.22 Type 2 diabetes mellitus with diabetic chronic kidney disease; N18.30 Chronic kidney disease, stage 3 unspecified; N40.0 Benign prostatic hyperplasia without lower urinary tract symptoms; Z83.3 Family history of diabetes mellitus; Z82.49 Family history of ischemic heart disease and other diseases of the circulatory system; E87.6 Hypokalemia; Z20.822 Contact with and (suspected) exposure to COVID-19
CPT/HCPCS: 36415; 71046; 80048; 80053; 80061; 82962; 83036; 83735; 83880; 84484; 85007; 85025; 85610; 93005; 93010; 93306; G0378; Q9967; C8929; J1644; J1815; J1940; J2260; U0003

== ENCOUNTER 2022-03-04 00:59 | Emergency (ER) | payer MEDICARE ==
[2022-03-04 09:08] LABS: Basophils % (Auto) 0.7 % (0.0-1.8); Eosinophils # (Auto) 0.1 K/mm3 (0.0-0.4); Eosinophils % (Auto) 2.9 % (0.0-4.3); Hematocrit 33.3 % (35.5-45.6); Hemoglobin 10.9 gm/dl (11.8-15.2); Lymphocytes # (Auto) 1.6 K/mm3 (1.2-5.4); Lymphocytes % (Auto) 34.2 % (13.4-35.0); Mean Corpuscular HGB Conc 33 % (32-34); Mean Corpuscular Volume 93 fl (84-94); Monocytes # (Auto) 0.6 K/mm3 (0.0-0.8); Monocytes % (Auto) 12.9 % (0.0-7.3); Platelet Count 213 K/mm3 (140-440); Red Cell Distribution Width 15.8 % (13.2-15.2)
[2022-03-04 09:22] LABS: Alanine Aminotransferase 95 units/L (7-56); Albumin 3.3 g/dL (3.9-5); BUN/Creatinine Ratio 13; Blood Urea Nitrogen 28 mg/dL (9-20); Calcium 9.1 mg/dL (8.4-10.2); Hemolysis Index 15
[2022-03-04 10:23] LABS: Bilirubin,Urine NEG (Negative); Blood,Urine LG (Negative); Color,Urine Yellow (Yellow); Mucus,Urine FEW /HPF; Urobilinogen,Urine < 2.0 mg/dL (<2.0)
--- NOTE | 2022-03-04 10:24 | XRay Report ---
CHEST 2 VIEWS INDICATION: CP. COMPARISON: 11/18/2021 FINDINGS: Support devices: None. Heart: Within normal limits. Bilateral hilar prominence remains. Lungs/Pleura: Increased interstitial markings in the perihilar regions. No significant pleural effu neha. IMPRESSION: 1. Mild perihilar prominence is less noticeable than the previous exam. Edema is favored over pneumon ia. 2. Persistent hilar enlargement. This could be more completely evaluated with CT chest as clinically indicated. Signer Name: Deepak Lees MD Signed: 03/04/2022 10:19 AM Workstation Name: [id number]
[2022-03-04] MEDS ORDERED: FUROSEMIDE 40 MG/4 ML INJ IV ONE (10:25)
--- NOTE | 2022-03-04 10:26 | Emergency Department Report ---
ED General Adult HPI - General Chief complaint: Abdominal Pain Stated complaint: ABDOMINAL PAIN Time Seen by Provider: 03/04/22 07:39 Source: EMS Mode of arrival: Stretcher Limitations: No Limitations - History of Present Illness Initial comments: Patient is a pleasant 62-year-old male who comes to the emergency room complaining of epigastric pain. He points to his left lower chest area. He denies nausea vomiting or diaphoresis. Patient is deaf. Current provider is able to sign. Patient reports the following is his home medications Vitamin D3 Lasix Potassium Flomax Metformin Coreg Glipizide And atorvastatin He states he is taking his medications. -: Gradual, days(s) Improves with: none Worsens with: none Associated Symptoms: denies other symptoms Treatments Prior to Arrival: none - Related Data Previous Rx's Medication Instructions Recorded Last Taken Type Aspirin [Aspirin BABY CHEW TAB] 81 mg PO QDAY 30 Days #30 tab.chew 11/23/21 Unknown Rx AtorvaSTATin [Lipitor] 40 mg PO QHS 30 Days #30 tablet 11/23/21 Unknown Rx Furosemide [Lasix] 40 mg PO BID 30 Days #60 tab 11/23/21 Unknown Rx Isosorb Dinit/Hydralazine [Bidil 1 each PO Q8HR 30 Days #90 tablet 11/23/21 Unknown Rx 20/37.5MG] Metoprolol [Lopressor TAB] 50 mg PO BID 30 Days #60 tablet 11/23/21 Unknown Rx Pantoprazole [Protonix TAB] 40 mg PO QDAY 30 Days #30 tablet 11/23/21 Unknown Rx Potassium Chloride [K-Dur] 10 meq PO QDAY 14 Days #14 tab 11/23/21 Unknown Rx Spironolactone [Aldactone] 25 mg PO QDAY 30 Days #30 tablet 11/23/21 Unknown Rx Allergies Allergy/AdvReac Type Severity Reaction Status Date / Time No Known Allergies Allergy Verified 11/22/21 14:06 ED Review of Systems ROS: Stated complaint: ABDOMINAL PAIN Other details as noted in HPI Comment: All other systems reviewed and negative ED Past Medical Hx - Past Medical History Previous Medical History?: Yes Hx Hypertension: Yes Hx Congestive Heart Failure: Yes (Nonischemic cardiomyopathy EF 20 to 25%) Hx Diabetes: Yes Hx Asthma: No Hx COPD: No - Surgical History Past Surgical History?: No - Family History Family history: no significant - Social History Smoking Status: Never Smoker Substance Use Type: None - Medications Home Medications: Home Medications Medication Instructions Recorded Confirmed Last Taken Type Aspirin [Aspirin BABY CHEW TAB] 81 mg PO QDAY 30 Days #30 tab.chew 11/23/21 Unknown Rx AtorvaSTATin [Lipitor] 40 mg PO QHS 30 Days #30 tablet 11/23/21 Unknown Rx Furosemide [Lasix] 40 mg PO BID 30 Days #60 tab 11/23/21 Unknown Rx Isosorb Dinit/Hydralazine [Bidil 1 each PO Q8HR 30 Days #90 tablet 11/23/21 Unknown Rx 20/37.5MG] Metoprolol [Lopressor TAB] 50 mg PO BID 30 Days #60 tablet 11/23/21 Unknown Rx Pantoprazole [Protonix TAB] 40 mg PO QDAY 30 Days #30 tablet 11/23/21 11/22/21 Unknown Rx Potassium Chloride [K-Dur] 10 meq PO QDAY 14 Days #14 tab 11/23/21 Unknown Rx Spironolactone [Aldactone] 25 mg PO QDAY 30 Days #30 tablet 11/23/21 Unknown Rx ED Physical Exam - General Limitations: No Limitations General appearance: alert, in no apparent distress - Head Head exam: Present: atraumatic, normocephalic - Eye Eye exam: Present: normal appearance - ENT ENT exam: Present: mucous membranes moist - Neck Neck exam: Present: normal inspection, other (deaf) - Respiratory Respiratory exam: Present: normal lung sounds bilaterally. Absent: respiratory distress - Cardiovascular Cardiovascular Exam: Present: regular rate, normal rhythm. Absent: systolic murmur, diastolic murmur, rubs, gallop - GI/Abdominal GI/Abdominal exam: Present: soft, normal bowel sounds - Rectal Rectal exam: Present: deferred - Extremities Exam Extremities exam: Present: normal inspection - Back Exam Back exam: Present: normal inspection - Neurological Exam Neurological exam: Present: alert, oriented X3 - Psychiatric Psychiatric exam: Present: normal affect, normal mood - Skin Skin exam: Present: warm, dry, intact, normal color. Absent: rash ED Course Vital Signs 03/04/22 03/04/22 03/04/22 01:56 12:35 12:41 Temperature 97.1 F L Pulse Rate 86 97 H 97 H Respiratory 18 18 16 Rate Blood Pressure 148/98 Blood Pressure 158/118 158/118 [Right] O2 Sat by Pulse 96 96 97 Oximetry ED Medical Decision Making - Lab Data Result diagrams: 03/04/22 08:12 03/04/22 08:12 - EKG Data EKG shows normal: sinus rhythm Rate: normal - EKG Data When compared to previous EKG there are: no significant change Interpretation: no acute changes - Radiology Data Radiology results: report reviewed, image reviewed nap - Medical Decision Making Labs 03/04/22 03/04/22 03/04/22 08:12 08:12 08:12 WBC 4.6 RBC 3.60 L Hgb 10.9 L Hct 33.3 L MCV 93 MCH 30 MCHC 33 RDW 15.8 H Plt Count 213 Lymph % (Auto) 34.2 [place] % (Auto) 12.9 H Eos % (Auto) 2.9 Baso % (Auto) 0.7 Lymph # (Auto) 1.6 [place] # (Auto) 0.6 Eos # (Auto) 0.1 Baso # (Auto) 0.0 Seg Neutrophils % 49.3 Seg Neutrophils # 2.3 VBG pH Sodium 138 Potassium 4.4 Chloride 104.8 Carbon Dioxide 23 Anion Gap 15 BUN 28 H Creatinine 2.1 H Estimated GFR 39 BUN/Creatinine Ratio 13 Glucose 127 H Ketones Quantitative Negative Calcium 9.1 Total Bilirubin 0.80 AST 82 H ALT 95 H Alkaline Phosphatase 89 Troponin T < 0.010 NT-Pro-B Natriuret Pep 6799 H Total Protein 10.0 H Albumin 3.3 L Albumin/Globulin Ratio 0.5 Urine Color Urine Turbidity Urine pH Ur Specific [place] Urine Protein Urine Glucose (UA) Urine Ketones Urine Blood Urine Nitrite Urine Bilirubin Urine Urobilinogen Ur Leukocyte Esterase Urine WBC (Auto) Urine RBC (Auto) U Epithel Cells (Auto) Urine Mucus 03/04/22 03/04/22 08:12 09:25 WBC RBC Hgb Hct MCV MCH MCHC RDW Plt Count Lymph % (Auto) [place] % (Auto) Eos % (Auto) Baso % (Auto) Lymph # (Auto) [place] # (Auto) Eos # (Auto) Baso # (Auto) Seg Neutrophils % Seg Neutrophils # VBG pH 7.340 Sodium Potassium Chloride Carbon Dioxide Anion Gap BUN Creatinine Estimated GFR BUN/Creatinine Ratio Glucose Ketones Quantitative Calcium Total Bilirubin AST ALT Alkaline Phosphatase Troponin T NT-Pro-B Natriuret Pep Total Protein Albumin Albumin/Globulin Ratio Urine Color Yellow Urine Turbidity Clear Urine pH 5.0 Ur Specific [place] 1.013 Urine Protein 30 mg/dl Urine Glucose (UA) Neg Urine Ketones Neg Urine Blood Lg Urine Nitrite Neg Urine Bilirubin Neg Urine Urobilinogen < 2.0 Ur Leukocyte Esterase Neg Urine WBC (Auto) 2.0 Urine RBC (Auto) 42.0 U Epithel Cells (Auto) < 1.0 Urine Mucus Few Vital Signs 03/04/22 01:56 Temperature 97.1 F L Pulse Rate 86 Respiratory 18 Rate Blood Pressure 148/98 O2 Sat by Pulse 96 Oximetry Patient's medical history reviewed. Given his history he has been given a cardiac work-up. His Trop was negative. His BNP is mildly elevated. I have given him 40 of IV Lasix with brisk results. Patient has had an echocardiogram and stress test. He is followed by Dr. Grier. He states that he is taking his medications. Labs noted UA noted On discharge exam patient is ambulatory, nontoxic [id number], laughing, smiling satting 100% on room air after walking. He has had a good response to his Lasix. His chest x-ray has no pulmonary edema. His twelve-lead is unchanged. Therefore, patient is being discharged home. Patient discharged home with discharge plan of care including diet, meds he will follow-up with PCP and Dr. Babin. He understands that he needs to take his home medications as prescribed. - Differential Diagnosis Rule out CHF versus URI versus GERD Critical care attestation.: If time is entered above; I have spent that time in minutes in the direct care of this critically ill patient, excluding procedure time. ED Disposition Clinical Impression: Nonischemic cardiomyopathy, Acute on chronic systolic heart failure, Renal insufficiency Disposition: 01 HOME / SELF CARE / HOMELESS Is pt being admited?: No Does the pt Need Aspirin: No Condition: Stable Instructions: Heart Failure, Self Care, [id number] Additional Instructions: Continue all of your home medications Low-salt diet You are retaining too much water Follow-up with your heart doctor this week. I have given you Dr. Clarke's number below I have also given you a primary care here at [facility] to follow-up with Referrals: SHARRI SAUL MD [Staff Physician] - 3-5 Days HUNTER FRANCO MD [Primary Care Provider] - 3-5 Days Time of Disposition: 12:18
[2022-03-04 12:36] VITALS: BP 158/118
--- NOTE | 2022-03-04 12:47 | Electrocardiograph Report ---
[facility] Test Date: 2022-03-04 Test Time: 09:12:52 Pat Name: SJ MCGARRY Department: Room: Gender: M [employer] Operator: THERON : 1960 Requested By: SANDRA MEYER Order Number: [id number] Reading MD: Raheem Diaz Measurements Intervals Norco Rate: 101 P: 32 MS: 180 QRS: -47 QRSD: 129 T: 109 QT: 387 QTc: 484 Interpretive Statements Sinus rhythm Atrial premature complexes in couplets Nonspecific IVCD with LAD Nonspecific T abnormalities, lateral leads Compared to ECG 11/18/2021 06:06:02 T-wave abnormality now present Left ventricular hypertrophy no longer present Electronically Signed On 03-04-2022 12:46:52 EDT by Raheem Diaz
== END 2022-03-04 13:00 | disposition home or self-care (01) ==
LOC: ED 00:59
DX: I42.8 Other cardiomyopathies (principal); I50.23 Acute on chronic systolic (congestive) heart failure; N18.9 Chronic kidney disease, unspecified; I10 Essential (primary) hypertension; E11.9 Type 2 diabetes mellitus without complications; Z86.79 Personal history of other diseases of the circulatory system
CPT/HCPCS: 36415; 71046; 80053; 81001; 82010; 82805; 83880; 84484; 85025; 93005; 96374; 99284; J1940

== ENCOUNTER 2022-03-16 13:12 | Emergency (ER) | payer MEDICARE ==
[2022-03-16] MEDS ORDERED: FUROSEMIDE 40 MG/4 ML INJ IV ONE (13:21)
[2022-03-16] MEDS ORDERED: ALBUTEROL 2.5 MG/3 ML NEBU IH ONE ×2 (13:21→15:35)
[2022-03-16] MEDS ORDERED: SODIUM CHLORIDE 0.9% 1000 ML 1,000 ML IV ONE (13:21)
[2022-03-16] MEDS ORDERED: IPRATROPIUM 0.02% NEBU 2.5 ML IH ONE ×2 (13:21→15:35)
--- NOTE | 2022-03-16 13:47 | XRay Report ---
CHEST 1 VIEW INDICATION: Dyspnea. COMPARISON: 03/04/2020 to FINDINGS: SUPPORT DEVICES: None. HEART: Mild cardiomegaly. LUNGS/PLEURA: Mild edema. No effusion. ADDITIONAL FINDINGS: None. IMPRESSION: 1. Mild cardiomegaly with mild edema. Signer Name: Gautam Wyatt MD Signed: 03/16/2022 1:43 PM Workstation Name: [id number]
[2022-03-16 14:56] LABS: Hematocrit 31.2 % (35.5-45.6); Mean Corpuscular HGB Conc 32 % (32-34); Mean Corpuscular Volume 92 fl (84-94); Platelet Count 164 K/mm3 (140-440); Red Cell Distribution Width 15.4 % (13.2-15.2)
[2022-03-16 15:21] LABS: Creatine Kinase MB 2.4 ng/mL (0.0-4.0)
[2022-03-16 15:23] LABS: Alanine Aminotransferase 103 units/L (7-56); Albumin 3.2 g/dL (3.9-5); BUN/Creatinine Ratio 16; Blood Urea Nitrogen 25 mg/dL (9-20); Hemolysis Index 5
[2022-03-16 15:29] VITALS: BP 133/104
--- NOTE | 2022-03-16 15:33 | Emergency Department Report ---
ED Shortness of Breath HPI - General Chief Complaint: Dyspnea/Respdistress Stated Complaint: SOB Time Seen by Provider: 03/16/22 13:21 Source: EMS Mode of arrival: Stretcher Limitations: No Limitations - History of Present Illness Initial Comments: Shortness of breath on exertion, onset x 2 weeks, hx of CHF, HTN Diabetes MD Complaint: shortness of breath -: Gradual, week(s) Associated Symptoms: denies other symptoms, cough - Related Data Home Oxygen Therapy: No Home Oxygen Amount: 2 Liters Previous Rx's Medication Instructions Recorded Last Taken Type Aspirin [Aspirin BABY CHEW TAB] 81 mg PO QDAY 30 Days #30 tab.chew 11/23/21 Unknown Rx AtorvaSTATin [Lipitor] 40 mg PO QHS 30 Days #30 tablet 11/23/21 Unknown Rx Furosemide [Lasix] 40 mg PO BID 30 Days #60 tab 11/23/21 Unknown Rx Isosorb Dinit/Hydralazine [Bidil 1 each PO Q8HR 30 Days #90 tablet 11/23/21 Unknown Rx 20/37.5MG] Metoprolol [Lopressor TAB] 50 mg PO BID 30 Days #60 tablet 11/23/21 Unknown Rx Pantoprazole [Protonix TAB] 40 mg PO QDAY 30 Days #30 tablet 11/23/21 Unknown Rx Potassium Chloride [K-Dur] 10 meq PO QDAY 14 Days #14 tab 11/23/21 Unknown Rx Spironolactone [Aldactone] 25 mg PO QDAY 30 Days #30 tablet 11/23/21 Unknown Rx Allergies Allergy/AdvReac Type Severity Reaction Status Date / Time No Known Allergies Allergy Verified 11/22/21 14:06 ED Review of Systems ROS: Stated complaint: SOB Other details as noted in HPI Comment: Unobtainable due to pts medical conditions Constitutional: denies: chills, fever Eyes: denies: eye pain, eye discharge, vision change ENT: denies: ear pain, throat pain Respiratory: denies: cough, shortness of breath, wheezing Cardiovascular: denies: chest pain, palpitations Endocrine: no symptoms reported Gastrointestinal: denies: abdominal pain, nausea, diarrhea Genitourinary: denies: urgency, dysuria Musculoskeletal: denies: back pain, joint swelling, arthralgia Skin: denies: rash, lesions Neurological: denies: headache, weakness, paresthesias Psychiatric: denies: anxiety, depression Hematological/Lymphatic: denies: easy bleeding, easy bruising ED Past Medical Hx - Past Medical History Hx Hypertension: Yes Hx Congestive Heart Failure: Yes (Nonischemic cardiomyopathy EF 20 to 25%) Hx Diabetes: Yes Hx Asthma: No Hx COPD: No - Social History Smoking Status: Former Smoker Substance Use Type: None - Medications Home Medications: Home Medications Medication Instructions Recorded Confirmed Last Taken Type Aspirin [Aspirin BABY CHEW TAB] 81 mg PO QDAY 30 Days #30 tab.chew 11/23/21 Unknown Rx AtorvaSTATin [Lipitor] 40 mg PO QHS 30 Days #30 tablet 11/23/21 Unknown Rx Furosemide [Lasix] 40 mg PO BID 30 Days #60 tab 11/23/21 Unknown Rx Isosorb Dinit/Hydralazine [Bidil 1 each PO Q8HR 30 Days #90 tablet 11/23/21 Unknown Rx 20/37.5MG] Metoprolol [Lopressor TAB] 50 mg PO BID 30 Days #60 tablet 11/23/21 Unknown Rx Pantoprazole [Protonix TAB] 40 mg PO QDAY 30 Days #30 tablet 11/23/21 11/22/21 Unknown Rx Potassium Chloride [K-Dur] 10 meq PO QDAY 14 Days #14 tab 11/23/21 Unknown Rx Spironolactone [Aldactone] 25 mg PO QDAY 30 Days #30 tablet 11/23/21 Unknown Rx ED Physical Exam - General Limitations: No Limitations General appearance: alert, in no apparent distress - Head Head exam: Present: atraumatic, normocephalic - Eye Eye exam: Present: normal appearance - ENT ENT exam: Present: mucous membranes moist - Neck Neck exam: Present: normal inspection - Respiratory Respiratory exam: Present: normal lung sounds bilaterally, rales. Absent: respiratory distress - Cardiovascular Cardiovascular Exam: Present: regular rate, normal rhythm. Absent: systolic murmur, diastolic murmur, rubs, gallop - GI/Abdominal GI/Abdominal exam: Present: soft, normal bowel sounds - Rectal Rectal exam: Present: deferred - Extremities Exam Extremities exam: Present: normal inspection - Back Exam Back exam: Present: normal inspection - Neurological Exam Neurological exam: Present: alert, oriented X3 - Psychiatric Psychiatric exam: Present: normal affect, normal mood - Skin Skin exam: Present: warm, dry, intact, normal color. Absent: rash ED Course Vital Signs 03/16/22 03/16/22 03/16/22 13:25 15:25 15:43 Temperature 97.4 F L Pulse Rate 85 87 Pulse Rate [ 88 Bilateral] Respiratory 18 26 H Rate Respiratory 20 Rate [Bilateral ] Blood Pressure 130/100 Blood Pressure 133/104 [Left] O2 Sat by Pulse 99 100 Oximetry ED Medical Decision Making - Lab Data Result diagrams: 03/16/22 14:41 03/16/22 14:41 - EKG Data -: EKG Interpreted by Me EKG shows normal: sinus rhythm - EKG Data Interpretation: nonspecific ST-T wave rhianna, LVH, other - Radiology Data Radiology results: report reviewed, image reviewed - Medical Decision Making work up showed CHF exacerbation laix and rt given , vss no distrss Critical care attestation.: If time is entered above; I have spent that time in minutes in the direct care of this critically ill patient, excluding procedure time. ED Disposition Clinical Impression: CHF (congestive heart failure), CHF exacerbation, SOB (shortness of breath) Disposition: 01 HOME / SELF CARE / HOMELESS Is pt being admited?: No Does the pt Need Aspirin: No Condition: Stable Instructions: Shortness of Breath, Adult, [id number], Heart Failure, Self Care, [id number] Referrals: HUNTER FRANCO MD [Primary Care Provider] - 3-5 Days
[2022-03-16 16:07] LABS: Hypochromasia 1+; Large Platelets Few; Platelet Estimate Consistent w Auto; Target Cells 1+; Total Cells Counted 100
== END 2022-03-16 17:17 | disposition home or self-care (01) ==
LOC: ED 13:12
DX: R06.02 Shortness of breath (principal); I11.9 Hypertensive heart disease without heart failure; I50.9 Heart failure, unspecified; E11.9 Type 2 diabetes mellitus without complications; Z87.891 Personal history of nicotine dependence
CPT/HCPCS: 36415; 71045; 80053; 82550; 82553; 83690; 83880; 84484; 85007; 85025; 93005; 94640; 96361; 96374; 99284; J1940; J7030; 94644

== ENCOUNTER 2022-04-03 12:42 | Emergency (ER) | payer MEDICARE ==
[2022-04-03] MEDS ORDERED: FUROSEMIDE 40 MG/4 ML INJ IV ONE (14:12)
--- NOTE | 2022-04-03 14:20 | Emergency Department Report ---
ED Shortness of Breath HPI - General Chief Complaint: Dyspnea/Respdistress Stated Complaint: IRENE Time Seen by Provider: 04/03/22 13:51 Source: patient, EMS Mode of arrival: Stretcher Limitations: Other - History of Present Illness Initial Comments: 62-year-old male with history of diabetes, CHF, and hypertension who presents with shortness of breath has been going on for about 5 days progressive getting worse. Patient also reports increase leg edema bilaterally. Is currently taking water pill but it does not seem to be working. Patient reports walking from one room to another worsening shortness of breath. No fever or chills reported. Patient also mention palpitation. No other modifying or associated factors reported. MD Complaint: shortness of breath - Related Data Previous Rx's Medication Instructions Recorded Last Taken Type Aspirin [Aspirin BABY CHEW TAB] 81 mg PO QDAY 30 Days #30 tab.chew 11/23/21 Unknown Rx AtorvaSTATin [Lipitor] 40 mg PO QHS 30 Days #30 tablet 11/23/21 Unknown Rx Furosemide [Lasix] 40 mg PO BID 30 Days #60 tab 11/23/21 Unknown Rx Isosorb Dinit/Hydralazine [Bidil 1 each PO Q8HR 30 Days #90 tablet 11/23/21 Unknown Rx 20/37.5MG] Metoprolol [Lopressor TAB] 50 mg PO BID 30 Days #60 tablet 11/23/21 Unknown Rx Pantoprazole [Protonix TAB] 40 mg PO QDAY 30 Days #30 tablet 11/23/21 Unknown Rx Potassium Chloride [K-Dur] 10 meq PO QDAY 14 Days #14 tab 11/23/21 Unknown Rx Spironolactone [Aldactone] 25 mg PO QDAY 30 Days #30 tablet 11/23/21 Unknown Rx Furosemide [Lasix TAB] 80 mg PO BID 5 Days #10 tab NS 04/03/22 Unknown Rx Allergies Allergy/AdvReac Type Severity Reaction Status Date / Time No Known Allergies Allergy Verified 04/03/22 13:37 ED Review of Systems ROS: Stated complaint: IRENE Other details as noted in HPI Comment: All other systems reviewed and negative Respiratory: shortness of breath, SOB with exertion Cardiovascular: palpitations, dyspnea on exertion, edema (Bilateral lower leg) ED Past Medical Hx - Past Medical History Hx Hypertension: Yes Hx Congestive Heart Failure: Yes (Nonischemic cardiomyopathy EF 20 to 25%) Hx Diabetes: Yes Hx Asthma: No Hx COPD: No - Social History Smoking Status: Former Smoker Substance Use Type: None - Medications Home Medications: Home Medications Medication Instructions Recorded Confirmed Last Taken Type Aspirin [Aspirin BABY CHEW TAB] 81 mg PO QDAY 30 Days #30 tab.chew 11/23/21 Unknown Rx AtorvaSTATin [Lipitor] 40 mg PO QHS 30 Days #30 tablet 11/23/21 Unknown Rx Furosemide [Lasix] 40 mg PO BID 30 Days #60 tab 11/23/21 Unknown Rx Isosorb Dinit/Hydralazine [Bidil 1 each PO Q8HR 30 Days #90 tablet 11/23/21 Unknown Rx 20/37.5MG] Metoprolol [Lopressor TAB] 50 mg PO BID 30 Days #60 tablet 11/23/21 Unknown Rx Pantoprazole [Protonix TAB] 40 mg PO QDAY 30 Days #30 tablet 11/23/21 11/22/21 Unknown Rx Potassium Chloride [K-Dur] 10 meq PO QDAY 14 Days #14 tab 11/23/21 Unknown Rx Spironolactone [Aldactone] 25 mg PO QDAY 30 Days #30 tablet 11/23/21 Unknown Rx Furosemide [Lasix TAB] 80 mg PO BID 5 Days #10 tab NS 04/03/22 Unknown Rx ED Physical Exam - General Limitations: No Limitations, Other General appearance: alert, in no apparent distress - Head Head exam: Present: normal inspection - Eye Eye exam: Present: normal appearance Pupils: Present: normal accommodation - ENT ENT exam: Present: normal exam, normal orophraynx, mucous membranes moist - Neck Neck exam: Present: normal inspection. Absent: tenderness, meningismus, full ROM - Respiratory Respiratory exam: Present: normal lung sounds bilaterally. Absent: respiratory distress, accessory muscle use - Cardiovascular Cardiovascular Exam: Present: regular rate, normal rhythm, normal heart sounds - GI/Abdominal GI/Abdominal exam: Present: soft, normal bowel sounds. Absent: tenderness - Extremities Exam Extremities exam: Present: pedal edema (+3 bilaterally). Absent: tenderness - Back Exam Back exam: Present: normal inspection. Absent: tenderness - Neurological Exam Neurological exam: Present: alert, oriented X3 - Psychiatric Psychiatric exam: Present: normal affect, normal mood - Skin Skin exam: Present: warm, normal color ED Course Vital Signs 04/03/22 12:42 Temperature 98.4 F Pulse Rate 102 H Respiratory 16 Rate Blood Pressure 134/92 [Left] O2 Sat by Pulse 98 Oximetry - Reevaluation(s) Reevaluation #1: 04/03/22 14:20 Here with shortness of breath--among differential diagnosis could be but not limited to CHF exacerbation, myocardiac infarction, pulmonary embolism, acute exacerbation of asthma, pneumothorax, pneumonia or Viral or Bacterial Upper/Lower respiratory tract infection or other systemic infection.--To rule out the above will go ahead and order EKG, cardiac enzyme including troponin, BNP, CKMB, chest x-ray, CBC, CMP, UA and or D-dimer. With this patient history of heart failure this is likely exacerbation of heart failure. Reevaluation #2: 04/03/22 19:45 Noted with elevated AST/ALT 44/68 will check for acute hepatitis, also noted with elevated Bun/cr likely as a result of dehydration. CXR shows some pulmonary edema with bilateral increase lower leg edema concerning for acute exacerbation of CHF -- given Lasix 40 mg IV x 1-- Reevaluation #3: 04/03/22 20:47 Pt reevaluated and reports feeling much better. He pointed me to is lower leg and states that the swelling is down at this point. Patient Doppler ultrasound noted to be negative for any DVT. At this point we will discharge patient home to double up on his Lasix and with conservative treatment. Patient encouraged to elevate legs while sitting or laying down. ED Medical Decision Making - Lab Data Result diagrams: 04/03/22 14:52 04/03/22 14:52 Critical care attestation.: If time is entered above; I have spent that time in minutes in the direct care of this critically ill patient, excluding procedure time. ED Disposition Clinical Impression: Leg edema Dyspnea Qualifiers: Dyspnea type: unspecified Qualified Code(s): R06.00 - Dyspnea, unspecified Acute exacerbation of CHF (congestive heart failure) Qualifiers: Heart failure type: unspecified Qualified Code(s): I50.9 - Heart failure, unspecified Anemia Qualifiers: Anemia type: unspecified type Qualified Code(s): D64.9 - Anemia, unspecified Disposition: 01 HOME / SELF CARE / HOMELESS Is pt being admited?: No Does the pt Need Aspirin: No Condition: Stable Instructions: Shortness of Breath, Adult, Kjee-[id number], Heart Failure, Self Care, Rwit-ee-Wkil, Supporting Someone With Heart Failure, Living With Heart Failure Additional Instructions: Your water pill/Lasix is doubled to help with the fluid retention in your leg Call and schedule a follow up with your doctor in the next 3-5 days for progress Call or return to ED if your symptoms worsen Prescriptions: Furosemide [Lasix TAB] 80 mg PO BID 5 Days #10 tab NS Referrals: PRIMARY CARE, [Primary Care Provider] - 3-5 Days Time of Disposition: 20:50
--- NOTE | 2022-04-03 14:53 | XRay Report ---
CHEST 1 VIEW 04/03/2022 1:36 PM INDICATION / CLINICAL INFORMATION: Dyspnea. COMPARISON: One view of the chest from 03/16/2022. FINDINGS: SUPPORT DEVICES: None. HEART / MEDIASTINUM: Stable cardiomegaly. LUNGS / PLEURA: Probable mild edema is again seen. No new significant pulmonary abnormality. No signi ficant pleural effusion. No pneumothorax. ADDITIONAL FINDINGS: No significant additional findings. IMPRESSION: 1. Stable cardiomegaly and probable mild pulmonary edema. No new acute findings. Signer Name: Jan Stubbs MD Signed: 04/03/2022 2:49 PM Workstation Name: [id number]
[2022-04-03 15:38] LABS: Hematocrit 30.5 % (35.5-45.6); Hemoglobin 9.7 gm/dl (11.8-15.2); Mean Corpuscular HGB Conc 32 % (32-34); Mean Corpuscular Volume 91 fl (84-94); Platelet Count 177 K/mm3 (140-440); Red Blood Count 3.37 M/mm3 (3.65-5.03); Red Cell Distribution Width 15.9 % (13.2-15.2)
[2022-04-03 15:50] LABS: INR 1.28 (0.87-1.13); Partial Thromboplastin Time 32.8 Sec. (24.2-36.6)
[2022-04-03 16:10] LABS: Albumin 3.1 g/dL (3.9-5); Calcium 9.1 mg/dL (8.4-10.2)
[2022-04-03 17:13] LABS: Basophils % (Manual) 0 % (0.0-1.8); Eosinophils % (Manual) 0 % (0.0-4.3); Hypochromasia 1+; Large Platelets Few; Platelet Estimate Consistent w Auto; Target Cells 1+; Total Cells Counted 100
[2022-04-03 18:13] LABS: Bilirubin,Urine NEG (Negative); Blood,Urine MOD (Negative); Color,Urine Colorless (Yellow); Protein,Urine <15 mg/dL mg/dL (Negative); Urobilinogen,Urine < 2.0 mg/dL (<2.0)
[2022-04-03 18:17] LABS: Bacteria,Urine 1+ /HPF (Negative); Hyaline Casts,Urine 2 /LPF; Mucus,Urine FEW /HPF; WBC,Urine < 1.0 /HPF (0.0-6.0)
--- NOTE | 2022-04-03 20:19 | Vascular Lab Report ---
DUPLEX DOPPLER LOWER EXTREMITY VEINS, BILATERAL INDICATION / CLINICAL INFORMATION: elevated d-dimer with swelling leg. TECHNIQUE: Duplex doppler imaging was performed through the veins of both lower extremities using venous [place] neha and other maneuvers. COMPARISON: None available. FINDINGS: RIGHT COMMON FEMORAL VEIN: Negative. RIGHT FEMORAL VEIN: Negative. RIGHT POPLITEAL VEIN: Negative. RIGHT CALF VEINS: Negative. LEFT COMMON FEMORAL VEIN: Negative. LEFT FEMORAL VEIN: Negative. LEFT POPLITEAL VEIN: Negative. LEFT CALF VEINS: Negative. ADDITIONAL FINDINGS: None. IMPRESSION: 1. No sonographic evidence for DVT in either lower extremity. Signer Name: Jake Adorno MD Signed: 04/03/2022 8:15 PM Workstation Name: [id number]
[2022-04-03 21:17] VITALS: BP 135/102
== END 2022-04-03 21:30 | disposition home or self-care (01) ==
LOC: ED 12:42
DX: R06.00 Dyspnea, unspecified (principal); R60.0 Localized edema; I11.0 Hypertensive heart disease with heart failure; I50.9 Heart failure, unspecified; E11.9 Type 2 diabetes mellitus without complications; Z79.899 Other long term (current) drug therapy; Z87.891 Personal history of nicotine dependence
CPT/HCPCS: 36415; 71045; 80053; 81001; 83880; 84484; 85007; 85025; 85379; 85610; 85730; 93970; 96374; 99285; J1940

== ENCOUNTER 2022-04-13 02:26 | Emergency (ER) | payer MEDICARE ==
--- NOTE | 2022-04-13 11:55 | Emergency Department Report ---
ED General Adult HPI - General Chief complaint: Dyspnea/Respdistress Stated complaint: SOB PUI?: No Time Seen by Provider: 04/13/22 11:19 Source: patient, EMS ( EMS documentation not available at time of chart dictation ), RN notes reviewed, old records reviewed Mode of arrival: Ambulatory Limitations: Other (Patient is deaf.) - History of Present Illness Initial comments: The patient was evaluated in the emergency department for symptoms described in the history of present illness. He/she was evaluated in the context of the global COVID-19 pandemic, which necessitated consideration that the patient might be at risk for infection with the virus that causes COVID-19. Institutional protocols and algorithms that pertain to the evaluation of patients at risk for COVID-19 are in a state of rapid change based on informatio n released by regulatory bodies including the CDC and federal and state organizations. These policies and algorithms were followed during the patient's care in the emergency department. Please note that these policies, procedures and recommendations changed on a rapid basis. sign language interpreter number: [id number] This is a 62-year-old gentleman. His past medical history includes CHF, hyper tension, and type 2 diabetes. Recent echocardiogram has demonstrated ejection fraction of 15 to 20%. He presents to the department today with a complaint of painless shortness of breath, cough, and labored breathing. He denies headache, neck pain, chest pain, abdominal pain, hematemesis and bright red blood per rectum. He denies unintentional weight gain. He denies loss of taste and smell. He has received his complete COVID-19 vaccination series, but still requires a booster. He reports that he is out of his Lasix, 80 mg twice daily, aspirin, 81 mg daily, and glipizide, 10 mg daily. He otherwise denies dietary indiscretions and reports compliance with his outpatient medications. He does report coughing unintentional white, clear, and yellow mucus. He also reports that he has follow-up with his loss control engineer later on this week. He denies travel, surgery, immobilization, DVT and pulmonary embolism risk factors. He was recently ruled out for DVT at this hospital a few weeks ago. -: Gradual, week(s) Consistency: constant Improves with: rest Worsens with: movement - Related Data Previous Rx's Medication Instructions Recorded Last Taken Type Aspirin [Aspirin BABY CHEW TAB] 81 mg PO QDAY 30 Days #30 tab.chew 11/23/21 Unknown Rx AtorvaSTATin [Lipitor] 40 mg PO QHS 30 Days #30 tablet 11/23/21 Unknown Rx Furosemide [Lasix] 40 mg PO BID 30 Days #60 tab 11/23/21 Unknown Rx Isosorb Dinit/Hydralazine [Bidil 1 each PO Q8HR 30 Days #90 tablet 11/23/21 Unknown Rx 20/37.5MG] Metoprolol [Lopressor TAB] 50 mg PO BID 30 Days #60 tablet 11/23/21 Unknown Rx Pantoprazole [Protonix TAB] 40 mg PO QDAY 30 Days #30 tablet 11/23/21 Unknown Rx Potassium Chloride [K-Dur] 10 meq PO QDAY 14 Days #14 tab 11/23/21 Unknown Rx Spironolactone [Aldactone] 25 mg PO QDAY 30 Days #30 tablet 11/23/21 Unknown Rx Furosemide [Lasix TAB] 80 mg PO BID 5 Days #10 tab NS 04/03/22 Unknown Rx Aspirin [Vazalore] 81 mg PO QDAY #30 cap 04/13/22 Unknown Rx Furosemide [Lasix TAB] 40 mg PO BID #60 tablet 04/13/22 Unknown Rx glipiZIDE [Glucotrol] 10 mg PO QDAY #30 tab 04/13/22 Unknown Rx Allergies Allergy/AdvReac Type Severity Reaction Status Date / Time No Known Allergies Allergy Verified 04/13/22 03:24 ED Review of Systems ROS: Stated complaint: SOB Other details as noted in HPI Constitutional: denies: fever Eyes: denies: eye discharge ENT: denies: congestion Respiratory: cough, shortness of breath. denies: wheezing Cardiovascular: denies: chest pain, edema Gastrointestinal: denies: abdominal pain Genitourinary: denies: dysuria Musculoskeletal: denies: back pain Skin: denies: lesions Neurological: denies: weakness ED Past Medical Hx - Past Medical History Previous Medical History?: Yes Hx Hypertension: Yes Hx Congestive Heart Failure: Yes (Nonischemic cardiomyopathy EF 20 to 25%) Hx Diabetes: Yes Hx Asthma: No Hx COPD: No - Surgical History Past Surgical History?: No - Social History Smoking Status: Never Smoker Substance Use Type: None - Medications Home Medications: Home Medications Medication Instructions Recorded Confirmed Last Taken Type Aspirin [Aspirin BABY CHEW TAB] 81 mg PO QDAY 30 Days #30 tab.chew 11/23/21 Unknown Rx AtorvaSTATin [Lipitor] 40 mg PO QHS 30 Days #30 tablet 11/23/21 Unknown Rx Furosemide [Lasix] 40 mg PO BID 30 Days #60 tab 11/23/21 Unknown Rx Isosorb Dinit/Hydralazine [Bidil 1 each PO Q8HR 30 Days #90 tablet 11/23/21 Unknown Rx 20/37.5MG] Metoprolol [Lopressor TAB] 50 mg PO BID 30 Days #60 tablet 11/23/21 Unknown Rx Pantoprazole [Protonix TAB] 40 mg PO QDAY 30 Days #30 tablet 11/23/21 11/22/21 Unknown Rx Potassium Chloride [K-Dur] 10 meq PO QDAY 14 Days #14 tab 11/23/21 Unknown Rx Spironolactone [Aldactone] 25 mg PO QDAY 30 Days #30 tablet 11/23/21 Unknown Rx Furosemide [Lasix TAB] 80 mg PO BID 5 Days #10 tab NS 04/03/22 Unknown Rx Aspirin [Vazalore] 81 mg PO QDAY #30 cap 04/13/22 Unknown Rx Furosemide [Lasix TAB] 40 mg PO BID #60 tablet 04/13/22 Unknown Rx glipiZIDE [Glucotrol] 10 mg PO QDAY #30 tab 04/13/22 Unknown Rx ED Physical Exam - General Limitations: Other (Patient is deaf) General appearance: alert, in no apparent distress - Head Head exam: Present: atraumatic, normocephalic - Eye Eye exam: Present: normal appearance, EOMI. Absent: nystagmus - ENT ENT exam: Present: normal exam, normal orophraynx, mucous membranes moist, n ormal external ear exam - Neck Neck exam: Present: normal inspection, full ROM. Absent: tenderness, meningismus - Respiratory Respiratory exam: Present: normal lung sounds bilaterally. Absent: respiratory distress, wheezes, rales, rhonchi, stridor, decreased breath sounds - Cardiovascular Cardiovascular Exam: Present: normal rhythm, tachycardia, normal heart sounds, JVD. Absent: bradycardia, irregular rhythm, systolic murmur, diastolic murmur, rubs, gallop - GI/Abdominal GI/Abdominal exam: Present: soft. Absent: distended, tenderness, guarding, rebound, rigid, pulsatile mass - Rectal Rectal exam: Present: deferred - Extremities Exam Extremities exam: Present: normal inspection, full ROM, pedal edema, other (2+ pulses noted in the bilateral upper and lower extremities. There is no palpable cord. negative Homans sign. Muscular compartments are soft. The pelvis is stable.). Absent: calf tenderness - Back Exam Back exam: Present: normal inspection, full ROM. Absent: tenderness, CVA tenderness (R), CVA tenderness (L), paraspinal tenderness, vertebral tenderness - Neurological Exam Neurological exam: Present: alert, oriented X3, normal gait, other (There is no facial droop. The tongue is midline. EOMI. 5 out of 5 strength in 4 extremities.) - Psychiatric Psychiatric exam: Present: normal affect, normal mood - Skin Skin exam: Present: warm, dry, intact, normal color. Absent: rash ED Course Vital Signs 04/13/22 04/13/22 04/13/22 03:21 14:17 14:26 Temperature 98.8 F 98.2 F Pulse Rate 107 H 98 H Respiratory 18 16 Rate Blood Pressure 142/101 133/90 [Left] O2 Sat by Pulse 100 98 Oximetry O2 Sat by Pulse 99 Oximetry [ Digit-Finger] - Reevaluation(s) Reevaluation #1: 04/13/22 14:19 Differential diagnosis, include but not limited to: Congestive heart failure, pneumonia, bronchitis Assessment and plan: 62-year-old gentleman, with improving tachycardia, who is not currently tachypneic or hypoxic, who denies DVT and pulmonary embolism risk factors, who is low risk by Wells criteria for pulmonary embolism, with probable mild CHF exacerbation. He has been out of his Lasix 80 mg twice daily. Chest x-ray interpretation reviewed and appreciated, clinically and radiographically I favor congestive heart failure over pneumonia. Patient is not hypoxic at this time he is not stridulous, he is resting comfortably on her stretcher and in no acute distress, and he also has follow-up with an outpatient loss control engineer later on this week. I will refill his Lasix, aspirin, and glipizide. He will be counseled to closely follow-up with his outpatient loss control engineer. He is administered metoprolol, Lasix, and spironolactone while here in the emergency room. Patient is observed in this department for hours without clinical decompensation. All questions were answered. 04/13/22 14:30 Reevaluation #2: 04/13/22 14:30 Tachycardia resolved. No acute distress. Resting comfortably in stretcher. Laboratory studies essentially appear to be at baseline. - Pulse Oximetry Interpretation Digit-Finger Initial Pulse Oximetry Readin O2 Sat by Pulse Oximetry: 99 Actions Taken: none ED Medical Decision Making - Lab Data Result diagrams: 04/13/22 12:46 04/13/22 12:47 Vital Signs 04/13/22 03:21 Temperature 98.8 F Pulse Rate 107 H Respiratory 18 Rate Blood Pressure 142/101 [Left] O2 Sat by Pulse 100 Oximetry Lab Results 04/13/22 04/13/22 04/13/22 Range/Units 12:46 12:47 12:47 WBC 4.6 (4.5-11.0) K/mm3 RBC 3.96 (3.65-5.03) M/mm3 Hgb 10.9 L (11.8-15.2) gm/dl Hct 35.7 (35.5-45.6) % MCV 90 (84-94) fl MCH 28 (28-32) pg MCHC 30 L (32-34) % RDW 15.8 H (13.2-15.2) % Plt Count 168 (140-440) K/mm3 Lymph % (Auto) 44.1 H (13.4-35.0) % [place] % (Auto) 15.5 H (0.0-7.3) % Eos % (Auto) 2.2 (0.0-4.3) % Baso % (Auto) 0.4 (0.0-1.8) % Lymph # (Auto) 2.0 (1.2-5.4) K/mm3 [place] # (Auto) 0.7 (0.0-0.8) K/mm3 Eos # (Auto) 0.1 (0.0-0.4) K/mm3 Baso # (Auto) 0.0 (0.0-0.1) K/mm3 Seg Neutrophils % 37.8 L (40.0-70.0) % Seg Neutrophils # 1.7 L (1.8-7.7) K/mm3 PT 16.5 H (12.2-14.9) Sec. INR 1.16 H (0.87-1.13) Sodium 137 (137-145) mmol/L Potassium 4.6 (3.6-5.0) mmol/L Chloride 102.0 (98-107) mmol/L Carbon Dioxide 23 (22-30) mmol/L Anion Gap 17 mmol/L BUN 23 H (9-20) mg/dL Creatinine 1.5 H (0.8-1.3) mg/dL Estimated GFR 57 ml/min BUN/Creatinine Ratio 15 % Glucose 111 H (75-100) mg/dL Calcium 9.5 (8.4-10.2) mg/dL Magnesium 1.90 (1.7-2.3) mg/dL Total Bilirubin 1.10 (0.1-1.2) mg/dL AST 67 H (5-40) units/L ALT 67 H (7-56) units/L Alkaline Phosphatase 100 (35-129) units/L Troponin T 0.011 (0.00-0.029) ng/mL NT-Pro-B Natriuret Pep 8386 H (0-900) pg/mL Total Protein 10.5 H (6.3-8.2) g/dL Albumin 3.4 L (3.9-5) g/dL Albumin/Globulin Ratio 0.5 % - EKG Data -: EKG Interpreted by [place] EKG shows normal: sinus rhythm Rate: normal - EKG Data 04/13/22 14:14 The EKG is interpreted at 12: 30 p.m. Sinus rhythm, tachycardia, rate 107 bpm. Left axis deviation, left anterior f ascicular block, QTC 504 ms, and left ventricular hypertrophy. This is an abnormal EKG. This is not a STEMI. This is unchanged from prior EKG from March 16, 2022. - Radiology Data Radiology results: pending, report reviewed, image reviewed Chest 2 views INDICATION: Chest pain IMPRESSION: Cardiomegaly with patchy bilateral airspace disease. Signer Name: Pradip Reyes MD Signed: 04/13/2022 11:28 AM Workstation Name: [employer] DUPLEX DOPPLER LOWER EXTREMITY VEINS, BILATERAL INDICATION / CLINICAL INFORMATION: elevated d-dimer with swelling leg. TECHNIQUE: Duplex doppler imaging was performed through the veins of both lower extremities using venous c ompression and other maneuvers. COMPARISON: None available. FINDINGS: RIGHT COMMON FEMORAL VEIN: Negative. RIGHT FEMORAL VEIN: Negative. RIGHT POPLITEAL VEIN: Negative. RIGHT CALF VEINS: Negative. LEFT COMMON FEMORAL VEIN: Negative. LEFT FEMORAL VEIN: Negative. LEFT POPLITEAL VEIN: Negative. LEFT CALF VEINS: Negative. ADDITIONAL FINDINGS: None. IMPRESSION: 1. No sonographic evidence for DVT in either lower extremity. Signer Name: Jake Adorno MD Signed: 04/03/2022 7:15 PM Critical care attestation.: If time is entered above; I have spent that time in minutes in the direct care of this critically ill patient, excluding procedure time. ED Disposition Clinical Impression: CHF (congestive heart failure), Medication refill Disposition: HOME / SELF CARE / HOMELESS Is pt being admited?: No Does the pt Need Aspirin: No Condition: Good Instructions: Heart Failure, Self Care, [id number] Additional Instructions: Follow-up with your outpatient loss control engineer this week as scheduled. Please consume a low-salt diet. For the next 5 days, please take Lasix, 80 mg twice daily. Then, switch back to 40 mg twice daily. Please make certain to follow-up with your loss control engineer this week as scheduled. Please continue current medications otherwise. Symptoms most likely coming from congestive heart failure. Avoid consumption of alcohol, tobacco and smoke products. Please return to the emergency room right away with new pain, worsened pain, migration of pain, projectile vomiting, change in mental status, confusion, inability tolerate liquid feeds, new, worsened or different symptoms not present on the initial emergency room evaluation Prescriptions: glipiZIDE [Glucotrol] 10 mg PO QDAY #30 tab Furosemide [Lasix TAB] 40 mg PO BID #60 tablet Aspirin [Vazalore] 81 mg PO QDAY #30 cap Referrals: [facility] [Provider Group] - 3-[address] [facility] [Provider Group] - 3-5 Days
[2022-04-13] MEDS ORDERED: NON-FORMULARY EACH (Furosemide [Lasix Tab] 80 MG Tablet) PO STA (11:56)
[2022-04-13] MEDS ORDERED: SPIRONOLACTONE 25 MG TAB PO STA (11:56)
[2022-04-13] MEDS ORDERED: METOPROLOL TARTRATE 50 MG TAB PO STA (11:56)
[2022-04-13] MEDS ORDERED: FUROSEMIDE 40 MG TAB PO NR (12:00)
--- NOTE | 2022-04-13 12:33 | XRay Report ---
Chest 2 views INDICATION: Chest pain IMPRESSION: Cardiomegaly with patchy bilateral airspace disease. Signer Name: Pradip Reyes MD Signed: 04/13/2022 12:28 PM Workstation Name: [email or web address]
[2022-04-13] MEDS ORDERED: FUROSEMIDE 40 MG/4 ML INJ IV ONE (13:16)
[2022-04-13 13:50] LABS: INR 1.16 (0.87-1.13)
[2022-04-13 14:07] LABS: Albumin 3.4 g/dL (3.9-5); Calcium 9.5 mg/dL (8.4-10.2)
[2022-04-13 14:08] LABS: Basophils % (Auto) 0.4 % (0.0-1.8); Eosinophils # (Auto) 0.1 K/mm3 (0.0-0.4); Eosinophils % (Auto) 2.2 % (0.0-4.3); Lymphocytes % (Auto) 44.1 % (13.4-35.0); Mean Corpuscular HGB Conc 30 % (32-34); Mean Corpuscular Volume 90 fl (84-94); Monocytes # (Auto) 0.7 K/mm3 (0.0-0.8); Monocytes % (Auto) 15.5 % (0.0-7.3); Platelet Count 168 K/mm3 (140-440); Red Blood Count 3.96 M/mm3 (3.65-5.03); Red Cell Distribution Width 15.8 % (13.2-15.2)
[2022-04-13 14:10] LABS: Hematocrit 35.7 % (35.5-45.6); Hemoglobin 10.9 gm/dl (11.8-15.2)
[2022-04-13 14:18] VITALS: BP 133/90
--- NOTE | 2022-04-14 10:48 | Electrocardiograph Report ---
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
== END 2022-04-13 14:59 | disposition home or self-care (01) ==
LOC: ED 02:26
DX: I11.0 Hypertensive heart disease with heart failure (principal); I50.9 Heart failure, unspecified; Z76.0 Encounter for issue of repeat prescription; E11.9 Type 2 diabetes mellitus without complications; Z79.899 Other long term (current) drug therapy
CPT/HCPCS: 36415; 71046; 80053; 83735; 83880; 84484; 85025; 85610; 93005; 99284

== ENCOUNTER 2022-04-29 06:44 | Day surgery (SDC) | payer MEDICARE ==
[2022-04-29] MEDS ORDERED: SODIUM CHLORIDE 0.9% 500 ML 500 ML IV SCH (08:00)
[2022-04-29 08:19] LABS: Hematocrit 32.9 % (35.5-45.6); Hemoglobin 10.1 gm/dl (11.8-15.2); Mean Corpuscular HGB Conc 31 % (32-34); Mean Corpuscular Volume 86 fl (84-94); Platelet Count 183 K/mm3 (140-440); Red Blood Count 3.81 M/mm3 (3.65-5.03); Red Cell Distribution Width 16.1 % (13.2-15.2)
[2022-04-29 08:23] LABS: Calcium 9.6 mg/dL (8.4-10.2)
[2022-04-29 08:36] LABS: INR 1.13 (0.87-1.13)
[2022-04-29 09:47] LABS: Total Cells Counted 100
[2022-04-29 09:49] LABS: Anisocytosis Few; Hypochromasia Few; Platelet Estimate Consistent w Auto; Poikilocytosis Few; Target Cells Rare
[2022-04-29] MEDS ORDERED: HEPARIN/NS 5000 UNIT/500ML 1,000 ML IR ONE (11:44)
[2022-04-29] MEDS ORDERED: HEPARIN 10,000 UNITS/10 ML VIAL ONE (11:44)
[2022-04-29] MEDS: LIDOCAINE (1%) 10 MG/1 ML VIAL 20 ML MDV ONE ×2 (12:41→13:08)
[2022-04-29] MEDS: fentaNYL 100 MCG/2 ML INJ ONE ×2 (12:41→13:08)
[2022-04-29] MEDS: MIDAZOLAM 2 MG/2 ML INJ ONE ×2 (12:41→13:08)
[2022-04-29] MEDS: VERAPAMIL 5 MG/2 ML INJ ONE ×2 (12:42→13:09)
[2022-04-29] MEDS: NITROGLYCERIN SYRINGE 3 ML ONE ×2 (12:44→13:09)
--- NOTE | 2022-04-29 13:44 | Discharge Summary ---
Short Stay Discharge Plan Activity: advance as tolerated Weight Bearing Status: Full Weight Bearing Diet: low fat, low cholesterol, low salt, diabetic Wound: keep clean and dry Special Instructions: smoking cessation, no heavy lifting (3 days), hold Metformin (48 hours) Follow up with: BRITNI EMANUEL NP-C [Primary Care Provider] - 7 Days GUANAKO REZA MD [Staff Physician] - 7 Days
[2022-04-29] MEDS ORDERED: SODIUM CHLORIDE 0.9% 1000 ML 1,000 ML IV SCH (13:45)
[2022-04-29] MEDS ORDERED: traMADol 50 MG TAB PO PRN (14:00)
--- NOTE | 2022-04-29 14:20 | Cardiac Catherization Report ---
DATE OF SERVICE: 04/29/2022 CARDIAC CATHETERIZATION REASON FOR PROCEDURE: The patient is a 62-year-old man with a history of a dilated cardiomyopathy. He was referred to the cardiac catheterization laboratory for coronary angiography to exclude coronary artery disease as etiology of his underlying cardiomyopathy. At the precardiac catheterization assessment, we found the patient's creatinine to be elevated at 1.7, against a baseline creatinine of 1.5. We had an extensive discussion with the patient and his family, about the elevated risk of contrast nephropathy. They understood and gave consent to proceed. As a prelude to the procedure, we administered normal saline intravenous hydration, with judicious attention to the patient's underlying systolic heart failure. In addition, we planned to perform the procedure using iso-osmolar contrast, Visipaque, and limit the contrast load with a coronaries-only study. PROCEDURES: 1. Left heart catheterization. 2. Selective left and right coronary angiography. 3. Sedation time start 1308, end 1315. DESCRIPTION OF PROCEDURE: The patient was prepped and draped in a sterile fashion after informed consent. The right radial cath site was prepped and draped after negative Harley's test. The right radial artery was entered using Seldinger technique followed by placement of a 6-Austrian hydrophilic sheath. Routine radial cocktail was administered via the sheath. Selective left and right coronary angiography was performed using #3.5 left Jodi and #4 right Jodi. The catheters were then removed, sheath removed and hemostasis achieved using a TR band. The patient was returned to the postprocedure unit in a stable condition. There were no complications. FINDINGS: HEMODYNAMICS: Ascending aortic pressure was 113/75. CORONARY ANGIOGRAPHY: Left main coronary artery was free of significant disease. The left anterior descending artery and its diagonal branches contained mild luminal irregularities. The circumflex artery and its obtuse marginal branches contained mild luminal irregularities. The right coronary artery was dominant and similarly contained luminal irregularities. No significant obstructive lesions were noted in either left or right coronary vessels. CONCLUSION: 1. No significant coronary artery disease, essentially angiographically near normal coronary vessels. 2. The patient has a diagnosis of nonischemic cardiomyopathy. 3. Total contrast load 35cc of visipaque. TID: [id number] RECEIPT: [id number] CA/ARV MTDD
[2022-04-29 18:01] VITALS: BP 133/91
--- NOTE | 2022-04-30 08:58 | Electrocardiograph Report ---
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 : 1960 Requested By: SHARRI SAUL Order Number: [id number] Reading MD: Venkatesh Contreras Measurements Intervals [place] Rate: 105 P: 47 NC: 183 QRS: -37 QRSD: 131 T: 140 QT: 383 QTc: 506 Interpretive Statements Sinus tachycardia Nonspecific IVCD with LAD Left ventricular hypertrophy Abnormal T, consider ischemia, lateral leads Compared to ECG 04/13/2022 12:30:45 Intraventricular conduction delay now present Left ventricular hypertrophy now present ST (T wave) deviation now present Left anterior fascicular block no longer present T-wave abnormality still present Electronically Signed On 04-30-2022 8:58:45 EDT by Venkatesh Contreras
== END 2022-04-29 06:45 | disposition home or self-care (01) ==
LOC: CATHLABREC 06:44
PROVIDERS: ATTEND Internal Medicine Cardiovascular Disease
DX: I42.0 Dilated cardiomyopathy (principal); I11.0 Hypertensive heart disease with heart failure; I50.23 Acute on chronic systolic (congestive) heart failure; N28.89 Other specified disorders of kidney and ureter; E78.00 Pure hypercholesterolemia, unspecified; Z87.891 Personal history of nicotine dependence; Z79.899 Other long term (current) drug therapy; Z79.82 Long term (current) use of aspirin; Z82.49 Family history of ischemic heart disease and other diseases of the circulatory system
CPT/HCPCS: 36415; 80048; 85007; 85025; 85610; 85730; 93005; 93454; C1894; J1644; J1815; J2250; J3010; J7040; Q9967